=== PATIENT | female | born 1955 | race Caucasian/White ===

== ENCOUNTER → 2023-12-29 08:32 | Outpatient (REF) | payer MEDICARE, OTHER, SELFPAY | LOC: WDC 08:32 | PROVIDERS: ATTENDING PHYSICIAN Family Medicine | DX: Z12.31 Encounter for screening mammogram for malignant neoplasm of breast (principal) | CPT/HCPCS: 77063; 77067 ==

== ENCOUNTER 2024-04-02 12:32 | Inpatient (IN) | payer MEDICARE, OTHER, SELFPAY ==
[2024-04-02] VITALS (19 sets, daily range): BP systolic 40–149; BP diastolic 47–78; BMI 31.7
[2024-04-02 09:56] LABS: % Basophils 0.3 % (0-2); % Eosinophils 0.1 % (0-6); % Immature Granulocytes 1.6 % (0-0.5); % Lymphocytes 8.4 % (20.5-51.1); % Neutrophils 84.6 % (42.2-75.2); Absolute Basophils 0.1 10^3/uL (0-0.2); Absolute Immature Granulocytes 0.3 10^3/uL (0-0.05); Absolute Lymphocytes 1.6 10^3/uL (1.2-3.4); Hematocrit 28.9 % (37.0-47.0); Mean Corp Hgb Conc. 34.6 g/dL (33.0-37.0); Mean Corpuscular Hgb 31.1 pg (27.0-31.0); Mean Corpuscular Volume 89.8 fL (81.0-99.0); Nucleated Red Blood Cells % 0 %; Platelet Count 417 10^3/uL (130-400); Red Blood Cell Count 3.22 10^6/uL (4.20-5.40); Red Cell Dist. Width 13.4 % (11.5-14.5); White Blood Cell Count 18.9 10^3/uL (4.8-10.8)
[2024-04-02 10:00] LABS: ALT (SGPT) 197 U/L (0-35); AST (SGOT) 49 U/L (14-36); Albumin 3.1 g/dl (3.5-5.0); Alkaline Phosphatase 117 U/L (38-126); Blood Urea Nitrogen 25 mg/dl (7-17); Calcium 8.4 mg/dl (8.4-10.2); Carbon Dioxide 27 mmol/L (22-30); Chloride 97 mmol/L (98-107); Glucose 106 mg/dl (70-99); Lipase 91 U/L (23-300); Potassium 3.7 mmol/L (3.5-5.1); Sodium 132 mmol/L (135-145); Total Bilirubin 0.9 mg/dl (0.2-1.3); Total Protein 5.6 g/dl (6.3-8.2); eGFR > 60.00
[2024-04-02] MEDS: NSS 1000 IV ×2 (10:14→13:56)
--- NOTE | 2024-04-02 11:21 | ED.GENMED ---
History of Present Illness
General
Chief Complaint: Abdominal Symptoms
Source: patient
Exam Limitations: none
Time Seen by Provider: 04/02/24 09:04
Nursing documentation reviewed up to this point in time: agreed with
Travel History
Have you had any contact with someone who has COVID-19?: No
Do you have any symptoms of coronavirus? Fever > 100 degrees, chills, cough, shortness of breath, sore throat, loss of taste or smell, muscle aches, or headache?: No
History of Present Illness
History of Present Illness:
69-year-old female with a past medical history of hypertension, hyperlipidemia who presents to the emergency department for evaluation of black stools. Patient reports onset of symptoms a week ago and have been constant since then. She says that
today she noticed increased blood in the toilet bowl which finally prompted her to come to the emergency room for assessment. She does note that prior to onset of her black stools she was having some abdominal discomfort about 10 days ago that
lasted for 3 days�she says that she thought that she ate a bad cheeseburger and had food poisoning because shortly last Tuesday she started with bandlike abdominal cramping across the upper abdomen that was persistent and rather severe for 3 days.
Symptoms then abated. She has had nausea and poor appetite since and occasional abdominal pains but pain has been rather minimal since then. She says she has had intermittent fevers over the past week but none today. She denies any chest pain.
Denies any shortness of breath. She denies any vomiting although she has had nausea and poor appetite as above. She denies any other complaints. She is not on any blood thinners. She has a prior history of hysterectomy but no other abdominal
surgeries.
Past History
Past History
ED Past Medical History: HTN, Hypercholesterolemia, Psychiatric (a/d) and Other (bladder spasms); Negative IDDM or NIDDM
ED Past Surgical History: Gynecological (complete hyster)
Social History
Tobacco: Non-smoker
Personal:
Review of Systems
Review of Systems
All Other Systems: ROS reviewed and negative except as documented in HPI and ROS
Constitutional: Reports fever, fatigue and chills
Respiratory: Denies cough or trouble breathing
Cardiac: Denies chest pain or palpitations
ABD/GI: Reports abdominal pain, nausea and black stools; Denies vomiting or diarrhea
: Denies flank pain
Musculoskeletal: Denies neck pain or back pain
Neurological: Denies dizzy, headache, weakness or numbness
Phy Exam
Physical Exam
Physical Exam:
General: Awake, alert, oriented x3; no acute distress
Head: Normocephalic, atraumatic
Eyes: Conjunctiva normal, sclera anicteric
Throat: Airway intact, handling secretions
Neck: Trachea midline, supple without meningismus
Lungs: Clear to auscultation bilaterally, no wheezing, rales, rhonchi
Heart: Regular rate and rhythm, no murmurs, gallops, or rubs
Abd: Soft, non distended, mild diffuse tenderness maximal epigastric region but no peritoneal signs and no masses appreciated
Rectal: Black stool Hemoccult positive in the rectal vault
Neuro: Cranial nerves grossly intact, speech fluid
Skin: no rash
Extremities: No edema in extremities, equal pulses in all extremities
Scores
Heart Failure Risk
Heart Failure Risk Score: Not Applicable
Heart Score for Chest Pain Patients
STEMI patient?: Not applicable
Withdrawal Assessment of Alcohol
Withdrawal Assessment Completed?: Not applicable
Course
Orders/Labs/Results
Orders:
Orders
04/02/24 09:32
CMP [Comprehensive Metabolic Panel] Urgent
Complete Blood Count/With Diff Urgent
Lipase Urgent
04/02/24 09:33
Type+Screen Urgent
04/02/24 10:12
0.9% Sodium Chloride 500 ml [Nss] 1,000 ml IV BOLUS
04/02/24 10:14
0.9% Sodium Chloride 1000 ml [Nss] 1,000 ml IV BOLUS
04/02/24 10:28
CT Abd/pelvis W Iv Cont Urgent
Comment:
Reason For Exam: upper abd pain, tenderness
04/02/24 11:03
Piperacillin/Tazo 3.375 Gram [Zosyn] 3.375 gram in 50 ml IV NOW
04/02/24 11:16
Pantoprazole [Protonix IV] 80 mg IV NOW STA
04/02/24 11:17
SURGICAL CONSULT Urgent
Consulting Provider: Wayne Beard
Was physician already notified: Yes
04/02/24 11:20
Lactate Level [Lactic Acid] Urgent
Blood Culture Q30M
DARION Source: Blood/Venous
Specimen Description:
04/02/24 11:45
Blood Culture Q30M
DARION Source: Blood/Venous
Specimen Description:
Abnormal Lab Results
04/02/24
09:32
WBC 18.9 H 10^3/uL
(4.8-10.8)
RBC 3.22 L 10^6/uL
(4.20-5.40)
Hgb 10.0 L g/dL
(12.0-16.0)
Hct 28.9 L %
(37.0-47.0)
MCH 31.1 H pg
(27.0-31.0)
Plt Count 417 H 10^3/uL
(130-400)
Abs Immat Gran (auto) 0.3 H 10^3/uL
(0-0.05)
Absolute Neuts (auto) 16.0 H 10^3/uL
(1.4-6.5)
Absolute Monos (auto) 1.0 H 10^3/uL
(0.1-0.6)
Immature Gran % 1.6 H %
(0-0.5)
Neutrophils % 84.6 H %
(42.2-75.2)
Lymphocytes % 8.4 L %
(20.5-51.1)
Sodium 132 L mmol/L
(135-145)
Chloride 97 L mmol/L
(98-107)
BUN 25 H mg/dl
(7-17)
Glucose 106 H mg/dl
(70-99)
AST 49 H U/L
(14-36)
ALT 197 H U/L
(0-35)
Total Protein 5.6 L g/dl
(6.3-8.2)
Albumin 3.1 L g/dl
(3.5-5.0)
04/02/24 09:32
04/02/24 09:32
Vital Signs
Initial and Last Documented VS:
Initial Vital Signs
Temp Pulse Resp BP Pulse Ox
37.3 C 98 16 120/76 98
04/02/24 09:00 04/02/24 09:00 04/02/24 09:00 04/02/24 09:00 04/02/24 09:00
Last Documented Vital Signs
Temp Pulse Resp BP Pulse Ox
37.3 C 74 16 124/65 96
04/02/24 09:00 04/02/24 10:06 04/02/24 09:00 04/02/24 10:00 04/02/24 10:01
MDM/Problems Addressed
Differential Diagnosis Includes:
Black stools: Gastric ulcer, gastritis, esophagitis, etc
Abdominal pains: Gastritis, gastric ulcer, pancreatitis, cholecystitis, enteritis, colitis
MDM/Problems Addressed:
69-year-old female presents for evaluation of black stools�she also reports that she had some abdominal pains last week has had intermittent discomfort and fevers since then. She has had very poor appetite and nausea. Vital signs are normal here.
Exam as above�notably jet black stool Hemoccult positive on rectal exam. Plan to place an IV check labs including CBC and CMP, lipase. Check type and screen. Send for CT of the abdomen pelvis. Provide some fluids. Treat with IV Protonix.
Monitor closely reassess after the above.
Initial labs reviewed: CBC shows leukocytosis to 18.9. Hemoglobin 10 is stable. CMP shows marginal elevation of transaminases but normal T. bili. Lipase is normal. Added lactate and blood cultures.
CT of the abdomen pelvis called back by radiology: Positive for large intra-abdominal abscess adjacent to the stomach with some features concerning for perforated gastric ulcer. Plan to treat with IV Zosyn. Case discussed with general surgery or
at bedside evaluating. Case discussed with hospitalist for admission.
*Radiology
Radiology exam reviewed: radiology read reviewed
*Pulse Oximetry
Patient hypoxic: no
*Critical Care Note
Total Time (30-74mins, 75-104mins- exclusive of procedures): Not Applicable
Data Reviewed
Source: patient and records
Patient Management
Discussion with other providers: Hospitalist (Discussed with hospitalist), Sales Marketing Director (Discussed with general surgeon) and Radiologist (Discussed with radiologist)
Escalation/DeEscalation of care consider admission/obs:
Admission indicated
ED Attending Note
-
Portions of this chart may have been created with voice recognition software.� Occasional wrong word or��sound alike� substitutions may have occurred due to the inherent limitations of voice recognition software.
Discharge Plan
Departure
Patient Disposition: Admit
Date of Disposition: 04/02/24
Time of Disposition: 11:19
Admit to doctor: Rosa
Presentation/result/management discussed w/ accepting MD/DO: Hospitalist
Discharge Problem:
Perforated gastric ulcer, Abdominal abscess, Acute upper GI bleed
Prescriptions:
No Action
citalopram 20 MG tablet
20 mg PO HS
multivitamin with folic acid [Tab-A-Ethel] 1 TABLET tablet
1 tab PO DAILY
aspirin 81 MG tablet,delayed release (DR/EC)
81 mg PO HS
simvastatin 20 MG tablet
10 mg PO HS
lisinopril 10 MG tablet
10 mg PO QPM
calcium carbonate [Tums] 200 mg calcium (500 mg) Tablet,Chewable
200 mg PO BIDPRN PRN (Reason: GERD )
Referrals:
Emily Diaz DO [Family Provider] -
Interventions
Interventions:
*Risk Screen - Suicide Last Done: 04/02/24 09:43
*General Assessment Last Done: 04/02/24 09:43
*Neglect/Abuse Screening Last Done: 04/02/24 09:43
*ED COVID-19 Vaccine History Last Done: 04/02/24 09:00
TY-Fpmshq-Yhfynbphrr Assessment Last Done: 04/02/24 09:44
Discharge Date and Time
Print Language: MALTESE
[2024-04-02] MEDS: ZOSYN 50 IV ×3 (11:39→23:33)
[2024-04-02] MEDS: PROTONIX IV 80 MG IV (11:39)
[2024-04-02 11:41] LABS: Lactic Acid 1.2 mmol/L (0.7-2.0)
--- NOTE | 2024-04-02 12:04 | CON.GS ---
Addendum entered and electronically signed by Wayne Beard MD 04/02/24 16:06:
This is a 69-year-old female with a history of a lap hysterectomy who presents with a 10-day history of malaise, nausea and vomiting initially thought to be food poisoning however she has failed to improve and then developed bright red blood per
rectum as well as tarry stools which prompted her to visit our ED. Here her hemoglobin is stable at 10 with a leukocytosis of 19 K. She is febrile to 102. Her vital signs are otherwise stable. CT scan demonstrates fairly large anterior gastric
abscess unclear if it is emanating from the proximal stomach or distal, though favor the former. She is very mildly tender to palpation in the epigastrium.
Concern for gastric perforation of unclear etiology NSAID versus infectious versus cancer all discussed.
Will plan for a diagnostic laparoscopy, washout and drain placement with EGD today.
Risks/Benefits/Alternatives, expected postoperative course and possible complications (bleeding, infection, injury to surrounding structures, acute/chronic pain) discussed at length. Patient wishes to proceed with surgery. All questions answered.
Consent obtained.
I spent roughly 60 minutes in total for the care of this patient today including direct patient care and counseling, reviewing labs, imaging, coordination of care, as well as documentation.
Original Note:
Consultation
-
Requesting Provider: Carlo
Performing Provider: Stephanie Beard
Medical History
-
Chief Complaint: n/v/bloody stools
History of Present Illness:
This is a 69 yo female with a h/o htn, hld and lap hysterectomy on daily ASA who presents with 10 days of nausea and vomiting. She initially attributed her symptoms to food poisoning as she had an undercooked hamburger. She has been throwing up most
solid food but has been taking in liquids without emesis. She has had discomfort to the upper abdominal area which was severe and lasted about 3 days from onset of symptoms with intermittent discomfort since that time. Grossly nontender on exam. She
notes that she has passed some tarry stools over the last day or so but this morning noted taras blood in her stool causing her to present. She also reports intermittent subjective fevers over the past week with chills and sweats.
Past Medical History
Past Medical History: HTN, Hypercholesterolemia and Psychiatric (anxiety/depression)
Past Surgical History: Gynecological (lap hysterectomy)
Social History
Tobacco: Non-Smoker
Alcohol: Occasional
Personal:
Living: With Family
Family History
Family History: Cancer (breast ca: mother)
Allergies / Home Medications
Allergy/AdvReac Type Severity Reaction Status Date / Time
No Known Allergies Allergy Verified 04/02/24 09:03
�Medication �Instructions �Recorded �Confirmed �Type
citalopram 20 mg tablet 20 mg PO HS depression/anxiety 08/30/11 04/02/24 History
multivitamin with folic acid 400 1 tab PO DAILY Supplement 08/30/11 04/02/24 History
mcg tablet (Tab-A-Ethel)
aspirin 81 mg tablet,delayed 81 mg PO HS Blood Clot 01/16/20 04/02/24 History
release Prevention/Tx
lisinopril 10 mg tablet 10 mg PO QPM Blood Pressure 01/16/20 04/02/24 History
simvastatin 20 mg tablet 10 mg PO HS High Cholesterol 01/16/20 04/02/24 History
calcium carbonate (Tums) 200 mg PO BIDPRN PRN GERD 04/02/24 04/02/24 History
Review of Systems
-
History Source: Patient
All other systems: Negative unless noted
A 10 point review of systems was completed, and was negative except as per HPI.
Physical Exam
Vital Signs
Temp Pulse Resp BP Pulse Ox
99.2 F 74 16 124/65 96
04/02/24 09:00 04/02/24 10:06 04/02/24 09:00 04/02/24 10:00 04/02/24 10:01
04/01/24 04/02/24 04/03/24
06:59 06:59 06:59
Actual Weight 74.3 kg
Lab Results
04/02/24 09:32
04/02/24:32
WBC 18.9 10^3/uL (4.8-10.8) H 04/02/24 09:32
Hgb 10.0 g/dL (12.0-16.0) L 04/02/24 09:
Hct 28.9 % (37.0-47.0) L 04/02/24 09:32
Plt Count 417 10^3/uL (130-400) H 04/02/24:32
Abs Immat Gran (auto) 0.3 10^3/uL (0-0.05) H 04/02/24:32
Neutrophils % 84.6 % (42.2-75.2) H 04/02/24 09:32
Physical Exam
General: Well Developed, Well Nourished and No Apparent Distress
HEENT: Moist Mucous Membranes
Respiratory: Non Labored Respirations
GI: Soft, Non Tender and Non Distended
Skin: Warm and Dry
Neuro: Awake, Alert and AO x 3
Psych: Calm
Data Reviewed
-
CT Scan: Image Personally Visualized and interpreted, Report Reviewed by me, Discussed with Physician and Discussed with Patient
Labs: Labs Reviewed by me, Discussed with Physician and Discussed with Patient
Old Records: Reviewed
Assessment / Plan
-
69 yo female with h/o htn, hld and lap hysterectomy on daily ASA who presents with 10 days of nausea and vomiting with upper abdominal pain at onset of symptoms with residual discomfort. Presented with onset of gross blood in stools today. Some
tarry stools previously. CT imaging reviewed with very small amount of abdominal free air present, gastric fundus irregular with adjacent abscess which is 9.6 x 8.3 x 4.5 cm. Suspect perforated gastric ulcer with adjacent fluid/abscess. AFVSS.
Leukocytosis present. Mild anemia noted.
--Keep NPO
--OR today for dx lap
--Consult placed to GI, messaged prison librarian provider
--IV Protonix given in ED
--Trend labs
--Continue abx, pip/tazo x1 given in ED
--Hold chemical VTE ppx and asa given bleeding/ct findings. SCD's for VTE ppx
--- NOTE | 2024-04-02 12:07 | HPS.HSE ---
Family Physician
-
Family Physician: Emily Diaz
Chief Complaint
-
Melena, abdominal pain, nausea
History of Present Illness
69 yo female here complaining of abdominal discomfort that started about 10 days ago. Subsequently had nausea, anorexia, intermittent fevers and sweats. Then developed melena about 3 days ago, and an episode of hematochezia. She was treating herself
at home for the past week for what she assumed was gastroenteritis.
Denies regular use of NSAIDS.
Has never had EGD in past. No know history of PUD.
Medical History
Past Medical History
Past Medical History: Reports HTN and Hypercholesterolemia
Past Surgical History: Reports Gynocological
Social History
Tobacco: Non-smoker
Alcohol: Occasional
Drug: None
Living: With Family
Family History
Family History: Not pertinent
Allergies / Home Medications
Allergies reflects when Allergies were last updated in [employer].
Home Medications with original date entered in [employer]
Allergy/Medication List:
Allergies
Allergy/AdvReac Type Severity Reaction Status Date / Time
No Known Allergies Allergy Verified 04/02/24 09:03
Home Medications
citalopram 20 mg tablet 20 mg PO HS depression/anxiety 08/30/11
multivitamin with folic acid 400 mcg tablet (Tab-A-Ethel) 1 tab PO DAILY Supplement 08/30/11
aspirin 81 mg tablet,delayed release 81 mg PO HS Blood Clot Prevention/Tx 01/16/20
lisinopril 10 mg tablet 10 mg PO QPM Blood Pressure 01/16/20
simvastatin 20 mg tablet 10 mg PO HS High Cholesterol 01/16/20
calcium carbonate (Tums) 200 mg PO BIDPRN PRN GERD 04/02/24
Review of Systems
-
History Source: Patient
A 12 point ROS was completed and negative except as noted: Yes
Abdomen/GI: Reports Abdominal Pain, Nausea, Vomiting, Bloody Stools, Black Stools and Anorexia
Physical Exam
Vital Signs
Vital Signs
Temp Pulse Resp BP Pulse Ox
99.2 F 74 16 124/65 96
04/02/24 09:00 04/02/24 10:06 04/02/24 09:00 04/02/24 10:00 04/02/24 10:01
Physical Exam
General: Well Developed, Well Nourished, No Apparent Distress and Comfortable
HEENT: NormoCephalic, Anicteric and Moist mucous membranes
Respiratory: Clear
Cardiac: S1/S2 and Regular Rhythm
Breast: Deferred by me
GI: Soft, Non Distended and Tender (mild, no guarding)
Genito-urinary: Deferred by me
Musculoskeletal: No Clubbing, No Cyanosis and No Edema
Skin: Warm and Dry
Neuro: AO x 3
Hematologic/Lymphatic: No Lymphadenopathy
Psych: Calm
Laboratory Results
-
04/02/24 09:32
04/02/24 09:32
Laboratory Results
Lactic Acid 1.2 mmol/L (0.7-2.0) 04/02/24 11:20
Total Bilirubin 0.9 mg/dl (0.2-1.3) 04/02/24 09:32
AST 49 U/L (14-36) H 04/02/24 09:32
ALT 197 U/L (0-35) H 04/02/24 09:32
Alkaline Phosphatase 117 U/L (38-126) 04/02/24 09:32
Lipase 91 U/L (23-300) 04/02/24 09:32
Impression/Plan
-
Sepsis due to acute perforated gastric ulcer -admit to IMU. Keep NPO. Discussed with general surgery, will go to the OR today. Start IV Protonix. Hemodynamically stable.
Abdominal abscess -presumably due to perforated gastric ulcer. Measures 9 x 8 x 4 cm. Continue IV Zosyn. Check cultures.
Normocytic anemia, chronic -hemoglobin appears to be at baseline.
Hyponatremia -sodium 132. Presumably hypovolemic. Normal saline IV fluids ordered.
Elevated transaminases -likely reactive and due to abdominal process. Monitor for now.
Essential hypertension -controlled. Hold antihypertensives for now.
Hyperlipidemia -on simvastatin at home. Hold for elevated transaminases.
Full code
--- NOTE | 2024-04-02 12:57 | CON.GI ---
Consultation
-
Date/Time Consultation Requested: 04/02/24 1215
Date/Time Consultation Performed: 04/02/24 1300
Requesting Provider: ANGELA Pickens
Performing Provider: ANGELA Chadwick, Margie Rocha MD
Reason for Consultation: rectal bleeding
Medical History
Chief Complaint / HPI
History of Present Illness:
Pt is a 69yo presents with hx HTN, hypercholesterolemia, anxiety/depression on daily ASA therapy with onset of not feeling well for 10 days. She initially thought she had food poisoning with difficulty eating, nausea, vomiting food and clear
emesis small volume but 1-2 episode of larger emesis. She was not feeling improved then noted black stools for 3 days then red blood today. On admission she is noted with WBC 18,900 with hbg 10, Na 132, AST 49, ALT [address] with
concern for large abscess adjacent to the proximal stomach and pancreas, measuring 9.6 x 8.3 x 4.5 cm, consisting of extraluminal fluid and air. Abscess may be related to gastric perforation, peripancreatic abscess, or other etiology. Finding also
reported possible discontinuity in the region of the gastric fundus, although evaluation is limited without oral contrast and to consider EGD.
Pt otherwise admits to feeling of a ' fog.' She describes mild abdominal pain diffuse in nature /. Unable to state what make pain better or worse. She otherwise denies dysphagia, GERD, hematemesis. No prior EGD and last colonoscopy 2017
with HP polyp, diverticulosis and hemorrhoids. Pt takes daily ASA but only Advil about 1 time per month.
Past Medical History
Past Medical History: HTN, Hypercholesterolemia and Psychiatric (anxiety/depression)
Past Surgical History: Gynecological (lap hysterectomy)
Social History
Tobacco: Non-Smoker
Alcohol: Daily (1 glass wine daily)
Personal:
Living: With Family
Employment: Employed (semi retired )
Family History
Family History: Reviewed & Not Pertinent
Allergies / Home Medications
Allergy/AdvReac Type Severity Reaction Status Date / Time
No Known Allergies Allergy Verified 04/02/24 09:03
�Medication �Instructions �Recorded
citalopram 20 mg tablet 20 mg PO HS depression/anxiety 08/30/11
multivitamin with folic acid 400 1 tab PO DAILY Supplement 08/30/11
mcg tablet (Tab-A-Ethel)
aspirin 81 mg tablet,delayed 81 mg PO HS Blood Clot 01/16/20
release Prevention/Tx
lisinopril 10 mg tablet 10 mg PO QPM Blood Pressure 01/16/20
simvastatin 20 mg tablet 10 mg PO HS High Cholesterol 01/16/20
calcium carbonate (Tums) 200 mg PO BIDPRN PRN GERD 04/02/24
Review of Systems
-
History Source: Patient
Constitutional: Reports Weight Loss (few lbs last 10 days)
EENT: Reports No Symptoms
Respiratory: Reports No Symptoms
Cardiac: Reports No Symptoms
Abdomen/GI: Reports Abdominal Pain (02/28), Nausea, Vomiting, Bloody Stools and Black Stools
: Reports No Symptoms
Musculoskeletal: Reports No Symptoms
Skin: Reports No Symptoms
Neurological: Reports Weakness
Endocrine: Reports No Symptoms
Hematologic/Lymphatic: Reports Bleeding
Vital Signs
Temp Pulse Resp BP Pulse Ox
99.2 F 74 16 124/65 96
04/02/24 09:00 04/02/24 10:06 04/02/24 09:00 04/02/24 10:00 04/02/24 10:01
Physical Exam
Exam
General: Other (awake and alert , mild abdominal discomfort )
HEENT: Normocephalic and Anicteric
Respiratory: Clear
Cardiac: Regular Rhythm
GI: Soft, Non Distended and Tender (mild epigastric without rebound or guarding)
Genito-urinary: No Costovertebral Tender
Musculoskeletal: No Clubbing and No Cyanosis
Skin: Warm and Dry
Neuro: Awake, Alert and AO x 3
Psych: Calm
Results
WBC 18.9 10^3/uL (4.8-10.8) H 04/02/24 09:32
Hgb 10.0 g/dL (12.0-16.0) L 04/02/24 09:32
Hct 28.9 % (37.0-47.0) L 04/02/24 09:32
MCV 89.8 fL (81.0-99.0) 04/02/24 09:32
Plt Count 417 10^3/uL (130-400) H 04/02/24 09:32
Absolute Neuts (auto) 16.0 10^3/uL (1.4-6.5) H 04/02/24 09:32
Sodium 132 mmol/L (135-145) L 04/02/24 09:32
Potassium 3.7 mmol/L (3.5-5.1) 04/02/24 09:32
Chloride 97 mmol/L (98-107) L 04/02/24 09:32
Carbon Dioxide 27 mmol/L (22-30) 04/02/24 09:32
BUN 25 mg/dl (7-17) H 04/02/24 09:32
Creatinine 0.6 mg/dL (0.6-1.0) 04/02/24 09:32
Calcium 8.4 mg/dl (8.4-10.2) 04/02/24 09:32
Total Bilirubin 0.9 mg/dl (0.2-1.3) 04/02/24 09:32
AST 49 U/L (14-36) H 04/02/24 09:32
ALT 197 U/L (0-35) H 04/02/24 09:32
Alkaline Phosphatase 117 U/L (38-126) 04/02/24 09:32
Lipase 91 U/L (23-300) 04/02/24 09:32
Diagnostic Image Results:
04/02/24 CT Abd/pelvis W Iv Cont
1. Large abscess adjacent to the proximal stomach and pancreas, measuring 9.6 x 8.3 x 4.5 cm, consisting of extraluminal fluid and air. Abscess may be related to gastric perforation, peripancreatic abscess, or other etiology.
2. Possible discontinuity in the region of the gastric fundus, although evaluation is limited without oral contrast. Consider endoscopy for further evaluation.
Prior GI Procedures:
EGD: none
Colonoscopy: 2016- p - Multiple diverticula, but unlikely the cause of her
pelvic pain.
- Non-bleeding internal hemorrhoids.
- Diverticulosis in the left colon.
- One 6 mm polyp at the splenic flexure, removed with a
hot snare. Resected and retrieved.
bx HP polyp
Assessment / Plan
-
Pt is a 69yo presents with hx HTN, hypercholesterolemia, anxiety/depression on daily ASA therapy with onset of not feeling well for 10 days. She initially thought she had food poisoning with difficulty eating, nausea, vomiting food and clear
emesis small volume but 1-2 episode of larger emesis. She was not feeling improved then noted black stools for 3 days then red blood on day on ER evaluation. On admission she is noted with WBC 18,[address] with concern for large
abscess adjacent to the proximal stomach and pancreas, measuring 9.6 x 8.3 x 4.5 cm, consisting of extraluminal fluid and air. Abscess may be related to gastric perforation, peripancreatic abscess, or other etiology. Finding also reported possible
discontinuity in the region of the gastric fundus, although evaluation is limited without oral contrast and to consider EGD.
-nausea/vomiting mild abdominal pain
-rectal bleeding black then red stools
-abnormal CT with concern for large abscess adjacent to proximal stomach and pancreas with fluid and air related to gastric perforation, peripancreatic abscess, or other etiology.
-leukocytosis
other medical problems:
-HTN
-hypercholesterolemia
-anxiety/depression
-ETOH use 1 glass wine daily
PLAN:
Etiology of large abscess related to gastric perforation, peripancreatic abscess, or other etiology
appreciate surgical input
for exp lap today
will review imaging with Dr. Rocha
cont abx
trend CBC
if + confirmed ulcer will need H pylori testing as minimal NSAIDS prior to admission
monitor stool with black then red stools prior to admission
trend hbg
NSAID avoidance
cont PPI gtt
-
-
Thank you for consultation and allowing me to participate in the patient's care. Please call the weapons designer GI physician during the after hours with any questions or concerns.
[2024-04-02] MEDS: PROTONIX 100 IV (13:55)
--- NOTE | 2024-04-02 14:11 | PTCARENOTE ---
Pt rec'd into 3344 from ED. AOx3, ambulating in room. Walked to bathroom and voided, passed small amount of burgundy colored loose BM in toilet, requested attends be placed. states 'I have an angry bladder. ' Pt provided with CHG wipes, clean
linens, awaiting OR. Oral temp of 102 at this time, Dr. Winchester notified, no orders at this time. Pt's left AC PIV very positional, slow to flush, VAT RN notified, IVF and PPI infusing to right AC. Admission completed at this time, oriented to room
and plan of care.
[2024-04-02] MEDS: TYLENOL/FEVERALL 650 MG RECTAL (15:17)
--- NOTE | 2024-04-02 15:23 | PTCARENOTE ---
Rectal Tylenol ordered and given for oral temp 102.8. at bedside. Pt resting, calm and cooperative. Cont with burgundy stool.
--- NOTE | 2024-04-02 16:29 | PTCARENOTE ---
Pt sent to OR -report given by Oswaldo MUSTAFA while primary RN on lunch.
--- NOTE | 2024-04-02 19:47 | W.IMMPOSTOP ---
Surgical Immed Post Op Note
-
Primary Surgeon: Wayne Beard MD
Assisting Surgeon: Lucas Morales MD
Pre-op Diagnosis: Perforated viscus, intra-abdominal abscess
Post-op Diagnosis: Perforated gastric ulcer, intra-abdominal abscess
Procedure Performed:
1. Diagnostic laparoscopy, washout of intra-abdominal abscess.
2. Laparoscopic modified Chaim patch repair
3. EGD
Anesthesia Type: General
Specimen / Cultures:
1. Ulcer biopsy for path, rule out H. pylori (obtained intraluminally)
2. Abscess cavity for wound culture aerobic, anaerobic.
3. Omentum for tissue culture
Estimated Blood Loss: 11 cc
Complications: None
Operative Findings: Large abscess cavity extending along the lesser curve from the cardia all the way down to the gallbladder, opened up widely and drained. Small tear to the liver, inherent to the dissection was stopped with electrocautery.
Abscess cavity cultured. Initially it was unclear where the site of the perforation was as the entire wall of the abscess cavity was quite inflamed and had densely adherent omentum which was carefully peeled back. We did perform an EGD which help
us identify the site of the perforation which appeared to be at the lesser curve just proximal to the pylorus. A biopsy was taken intraluminally of the ulcer. The overlying omentum over this area was carefully peeled away eventually revealing the
site of perforation. This was closed with 3 interrupted 0 silk sutures followed by tongue of omentum which was secured in a modified Chaim patch manner. A 19 Austrian round Jose Angel drain was introduced through the right lateralmost port and draped
across the gallbladder fossa over the duodenum, passed our repair and into the abscess cavity. This was secured to the skin with a 2-0 nylon suture. A 18 Austrian NG tube was placed and position was confirmed endoscopically. A 16 Austrian Hyde was
placed at the beginning of the case.
POST OP PLAN:
Imaging: Will plan for an upper GI on postoperative day 3
Labs: Routine AM
Diet: Strict n.p.o., NG tube to low intermittent wall suction. PPI
Analgesia: IV Tylenol scheduled, Dilaudid as needed, no NSAIDs.
Neuro/vascular checks: q4h
AC/AP: Hold Therapeutic AC, Ok for DVT PPx
Activity: Ad Louise
Wound/Incisions/Drains: Routine, SHERIE to bulb suction
Abx: Continue Zosyn x 7 days. Would treat empirically for H. pylori
Dispo: IMU
[2024-04-02] MEDS: NORMOSOL-R 1000 IV (22:18)
[2024-04-02] MEDS: NSS IV ×2 (22:38)
[2024-04-02] MEDS: OFIRMEV 100 IV (23:12)
[2024-04-03] VITALS (10 sets, daily range): BP systolic 93–133; BP diastolic 51–61; BMI 31.7
--- NOTE | 2024-04-03 00:55 | PTCARENOTE ---
Received pt from PACU,tolerated transfer well.Pt is awake,oriented to surroundings,physical assessment preformed,pts NGT intact to left nare,maroon drainage present.Pt abd assessed 4 visible stab sites present with surgical glue, abd tender with
palp.VS stable,IVT with Normosol R,infusing at 5mls hour,Protonix GTT maintained.Pt easily awoken,close observation ongoing throughout the night.
[2024-04-03] MEDS: OFIRMEV 100 IV ×3 (03:57→15:54)
[2024-04-03] MEDS: PROTONIX 100 IV ×3 (04:01→20:00)
[2024-04-03] MEDS: DILAUDID 0.5 MG IV (04:40)
[2024-04-03 05:17] LABS: % Basophils 0.3 % (0-2); % Immature Granulocytes 1.2 % (0-0.5); % Monocytes 4.1 % (1.7-9.3); % Neutrophils 89.4 % (42.2-75.2); Absolute Basophils 0.1 10^3/uL (0-0.2); Absolute Immature Granulocytes 0.2 10^3/uL (0-0.05); Absolute Lymphocytes 0.9 10^3/uL (1.2-3.4); Absolute Monocytes 0.7 10^3/uL (0.1-0.6); Absolute Neutrophils 15.8 10^3/uL (1.4-6.5); Hemoglobin 8.2 g/dL (12.0-16.0); Mean Corp Hgb Conc. 34.2 g/dL (33.0-37.0); Mean Corpuscular Hgb 30.9 pg (27.0-31.0); Mean Corpuscular Volume 90.6 fL (81.0-99.0); Mean Platelet Volume 9.9 fL (7.4-10.4); Nucleated Red Blood Cells % 0 %; Platelet Count 339 10^3/uL (130-400); Red Blood Cell Count 2.65 10^6/uL (4.20-5.40); Red Cell Dist. Width 13.7 % (11.5-14.5); White Blood Cell Count 17.7 10^3/uL (4.8-10.8)
[2024-04-03] MEDS: ZOSYN 50 IV ×4 (05:37→23:44)
[2024-04-03 05:39] LABS: ALT (SGPT) 149 U/L (0-35); AST (SGOT) 56 U/L (14-36); Albumin 2.3 g/dl (3.5-5.0); Alkaline Phosphatase 84 U/L (38-126); Blood Urea Nitrogen 12 mg/dl (7-17); Calcium 7.6 mg/dl (8.4-10.2); Carbon Dioxide 23 mmol/L (22-30); Chloride 105 mmol/L (98-107); Estimated Creatinine Clearance 82 ml/min; Glucose 130 mg/dl (70-99); Sodium 133 mmol/L (135-145); Total Bilirubin 0.7 mg/dl (0.2-1.3); Total Protein 4.5 g/dl (6.3-8.2); eGFR > 60.00
--- NOTE | 2024-04-03 09:06 | W.PN.GS2 ---
Today's Communication / Plan
-
-- NPO, IVF
-- NGT to suction
-- Diet consult, PICC/TPN
-- Pain control: Tylenol IV and Dilaudid IV, no NSAIDs
-- PPI gtt
Assessment / Plan
-
Patient is a 69 yo F POD#1 s/p laparoscopic drainage of intra-abdominal abscess, modified Chaim patch repair of perforated gastric ulcer, EGD
AVSS, WBC trending down
Clinically stable
Limited oral intake over the past 1 to 2 weeks, plan for dietary consultation and starting TPN. NPO with TPN for the next 3 days at which time can trial clear liquids and monitor drain outputs.
-- NPO, IVF
-- NGT to suction
-- Diet consult, PICC/TPN
-- Abx: Zosyn
-- Pain control: Tylenol IV and Dilaudid IV, no NSAIDs
-- PPI gtt
-- Lovenox for DVT
Subjective Data
-
Date of Service: April 03, 2024
Denies worsening abdominal pain. No nausea or vomiting. No fevers.
Objective Data
-
Intake and Output
04/02/24 04/03/24 04/04/24
06:59 06:59 06:59
Intake Total 925 / 925
Output Total 1070 / 1070
Balance -145 / -145
Intake:
IV fluids (Total) 625 / 625
Normosal 100 / 100
IV piggybacks 300 / 300
Amount instilled into GI Tube ( 0 / 0
Total)
Gladys Sump 0 / 0
Output:
Drain Output (Total) 300 / 300
Right Lower Abdomen 300 / 300
Gastrointestinal tube output ( 100 / 100
Total)
Gladys Sump 100 / 100
Urine, Hyde 670 / 670
Other:
Number of approximated MODERATE 1
amounts of urine
Vital Signs
Temp Pulse Resp BP Pulse Ox
97.6 F 67 18 110/57 100
04/03/24 07:17 04/03/24 07:17 04/03/24 07:17 04/03/24 07:17 04/03/24 07:17
Lab Results
04/03/24 05:04
04/03/24 05:04
Calcium 7.6 mg/dl (8.4-10.2) L 04/03/24 05:04
Total Bilirubin 0.7 mg/dl (0.2-1.3) 04/03/24 05:04
AST 56 U/L (14-36) H 04/03/24 05:04
ALT 149 U/L (0-35) H 04/03/24 05:04
Alkaline Phosphatase 84 U/L (38-126) 04/03/24 05:04
Total Protein 4.5 g/dl (6.3-8.2) L 04/03/24 05:04
Albumin 2.3 g/dl (3.5-5.0) L 04/03/24 05:04
Physical Exam
-
Gen: NAD
HEENT: light bilious
Abd: soft, mild tenderness, ND, non-peritoneal, incisions c/d/i - no erythema, ecchymosis or drainage, SHERIE non-bilious, bloody purulent
[2024-04-03 10:11] LABS: ALT (SGPT) 125 U/L (0-35); AST (SGOT) 45 U/L (14-36); Albumin 2.3 g/dl (3.5-5.0); Alkaline Phosphatase 86 U/L (38-126); Blood Urea Nitrogen 11 mg/dl (7-17); Carbon Dioxide 24 mmol/L (22-30); Chloride 105 mmol/L (98-107); Estimated Creatinine Clearance 82 ml/min; Glucose 113 mg/dl (70-99); Magnesium 2.5 mg/dl (1.6-2.3); Phosphorus 4.2 mg/dl (2.5-4.5); Potassium 3.9 mmol/L (3.5-5.1); Sodium 136 mmol/L (135-145); Total Bilirubin 0.8 mg/dl (0.2-1.3); Total Protein 4.6 g/dl (6.3-8.2); Triglycerides 63 mg/dl (10-149); eGFR > 60.00
--- NOTE | 2024-04-03 10:43 | W.PN.GI.CBS2 ---
Addendum entered and electronically signed by Ama Duff DO 04/03/24 11:56:
I saw and examined the patient.
The WEBSITE DEVELOPER or PA's note was reviewed and I agree with the note.
Comment: Carole seen in follow-up today, now s/p ex lap with drainage of intra-abdominal abscess 2/2 perforated gastric ulcer, s/p falguni patch. NG in place with bilious fluid. She current reports 08/30 discomfort due to muscle spasm. She
adamantly denies NSAIDs, pathology sent from surgical specimen, r/o malignancy and H. pylori. Will defer post-surgical management to surgery, with plans for GI follow-up as an outpatient. GI will sign off, please call with questions.
Original Note:
Today's Communication / Plan
-
s/p laparoscopic drainage of intra-abdominal abscess, modified Falguni patch repair of perforated gastric ulcer, EGD
management per surgical team
per report H pylori bx sent to lab will need rx if positive when improved
cont abx
trend CBC
NSAID avoidance
cont PPI gtt
reviewed with Dr. Winchester
will sign off call with questions
Assessment / Plan
-
Pt is a 69yo presents with hx HTN, hypercholesterolemia, anxiety/depression on daily ASA therapy with onset of not feeling well for 10 days. She initially thought she had food poisoning with difficulty eating, nausea, vomiting food and clear
emesis small volume but 1-2 episode of larger emesis. She was not feeling improved then noted black stools for 3 days then red blood on day on ER evaluation. On admission she is noted with WBC 18,[address] with concern for large
abscess adjacent to the proximal stomach and pancreas, measuring 9.6 x 8.3 x 4.5 cm, consisting of extraluminal fluid and air. Abscess may be related to gastric perforation, peripancreatic abscess, or other etiology. Finding also reported possible
discontinuity in the region of the gastric fundus, although evaluation is limited without oral contrast and to consider EGD.
-abnormal CT with concern for large abscess adjacent to proximal stomach and pancreas with fluid and air related to gastric perforation, peripancreatic abscess, or other etiology
-04/03 exp lap with s/p laparoscopic drainage of intra-abdominal abscess, modified Falguni patch repair of perforated gastric ulcer, EGD
-nausea/vomiting mild abdominal pain
-rectal bleeding black then red stools
-increased LFT's
-leukocytosis
other medical problems:
-HTN
-hypercholesterolemia
-anxiety/depression
-ETOH use 1 glass wine daily
PLAN:
s/p laparoscopic drainage of intra-abdominal abscess, modified Falguni patch repair of perforated gastric ulcer, EGD
management per surgical team
per report H pylori bx sent to lab will need rx if positive when improved
cont abx
trend CBC
NSAID avoidance
cont PPI gtt
reviewed with Dr. Winchester
will sign off call with questions
Subjective
Subjective
Date of Service: April 03, 2024
burgundy stool 04/02 prior to surgery, NPO some noted post op pain
Objective
Data Reviewed
Laboratory Data:
Laboratory Results
04/03/24 05:04
04/03/24 09:36
Laboratory Results
Phosphorus 4.2 mg/dl (2.5-4.5) 04/03/24 09:36
Magnesium 2.5 mg/dl (1.6-2.3) H 04/03/24 09:36
Total Bilirubin 0.8 mg/dl (0.2-1.3) 04/03/24 09:36
AST 45 U/L (14-36) H 04/03/24 09:36
ALT 125 U/L (0-35) H 04/03/24 09:36
Alkaline Phosphatase 86 U/L (38-126) 04/03/24 09:36
Lipase 91 U/L (23-300) 04/02/24 09:32
Vital Signs and I&O:
Vital Signs
Temp Pulse Resp BP Pulse Ox
97.6 F 67 18 110/57 100
04/03/24 07:17 04/03/24 07:17 04/03/24 07:17 04/03/24 07:17 04/03/24 09:39
I&O
04/02/24 04/03/24 04/04/24
06:59 06:59 06:59
Intake Total 925 / 925
Output Total 1070 / 1070 50 / 50
Balance -145 / -145 -50 / -50
Physical Exam
Physical Exam
HEENT: Anicteric and Moist mucous membranes
Cardiology: Normal Sinus Rhythm
Pulmonary: Clear
GI: Soft, Non Distended and Tender
Extremities: No Edema
Neuro: Non Focal
[2024-04-03] MEDS: DILAUDID 1 MG IV (11:14)
--- NOTE | 2024-04-03 11:29 | W.PN.HOSP.TC ---
Today's Communication/Plan
-
Continue current care
Assessment / Plan
Assessment / Plan
Gen-AAOx3, NAD, obese
HEENT-NC, AT, anicteric, clear oral mm
Neck-supple
CV-reg, no M, +S1/S2
Lungs-clear B/L
Abd-soft, nondistended, mild tenderness, drain in place
Ext-no edema
Musculoskeletal-no cyanosis, clubbing
Skin-warm and dry
Neuro-grossly non-focal
Psych-calm, cooperative
Sepsis due to acute perforated gastric ulcer/intra-abdominal abscess - hemodynamically stable. Continue IV Zosyn. Underwent washout of abdominal abscess 04/02.
Blood cultures negative so far. WBC trending down.
Perforated gastric ulcer, subacute -stable postop. Underwent laparoscopic modified Chaim patch repair, washout of intra-abdominal abscess, EGD on 04/02. N.p.o. currently. TPN per surgical service.
H. pylori testing pending. Currently on PPI drip. Appreciate GI input.
Having abdominal cramps today, symptoms are not similar to the symptoms that brought her to the hospital.
Acute on chronic normocytic anemia -acute postop anemia likely due to operative blood loss. Component of hemodilution from IV fluids possible. Hemoglobin 8.2 today. Monitor. Baseline hemoglobin appears to be around 10.
Hyponatremia -sodium 132. Presumably hypovolemic. Sodium improved to 136 today.
Elevated transaminases -likely reactive and due to abdominal process. Monitor for now.
Essential hypertension -controlled. Hold antihypertensives for now.
Hyperlipidemia -on simvastatin at home. Hold for elevated transaminases.
Obesity due to excess calories
Full code
Anticipated Discharge: > 48 hours
Subjective/Interval History
-
Date of Service: April 03, 2024
Patient seen and examined. Complaining of abdominal cramping.
Objective Data
-
Labs:
Laboratory Results
04/03/24 04/03/24
05:04 09:36
WBC 17.7 H
Hgb 8.2 L
Hct 24.0 L
Plt Count 339
Sodium 133 L 136
Potassium 4.0 3.9
Chloride 105 105
Carbon Dioxide 23 24
BUN 12 11
Creatinine 0.5 L 0.5 L
Glucose 130 H 113 H
Calcium 7.6 L 8.0 L
Total Bilirubin 0.7 0.8
AST 56 H 45 H
ALT 149 H 125 H
Alkaline Phosphatase 84 86
Vital Signs:
Vital Signs
Temp Pulse Resp BP Pulse Ox
98.2 F 84 18 133/59 94
04/03/24 11:16 04/03/24 11:16 04/03/24 11:16 04/03/24 11:16 04/03/24 11:16
I&O
04/02/24 04/03/24 04/04/24
06:59 06:59 06:59
Intake Total 925 / 925
Output Total 1070 / 1070 50 / 50
Balance -145 / -145 -50 / -50
Review of Systems
-
History Source: Patient
All other systems: Reviewed and negative
[2024-04-03] MEDS: NORMOSOL-R 1000 IV ×2 (11:47→21:26)
--- NOTE | 2024-04-03 16:16 | CM ---
CM met with pt bedside
Pt resides with her spouse in a 2SH with 3STE
Has 1st floor set up
Pt is independent with her ADLs- denies use of DMEs
PCP- Emily torres
Rx- [facility]
Discharge Disposition- home, no needs anticipated
[2024-04-03] MEDS: LOVENOX 40 MG SC (17:50)
--- NOTE | 2024-04-03 19:08 | PHA.VAN.IN ---
Assessment
- Assessment
Renal Function: Appears similar to baseline
Concomitant Antimicrobials: ZOSYN
- Previous Dosing Experience
Previous Regimen: NONE
AUC Dosing Plan
- Dosing Variables
Dosing Weight (kg): 73.7
Dosing CrCl (ml/min): 82
Vd coefficient (L/kg): 0.6
- Empiric Dosing
Initial / Loading Dose: 1750MG
Maintenance Regimen: 750MG IV Q12H
Estimated AUC (mcg*h/mL): 485
Estimated Peak (mcg*h/mL): 29.2
Estimated Trough (mcg/ml): 13.2
Estimated Half Life (H): 9.6
Pharmacokinetics Vancomycin I
- -
Patient Age: 69
Patient Sex: Female
Vancomycin Day #: 1
Indication: Bacteremia (PERFORATED GASTRIC ULCER/ABSCESS)
Requesting Provider: ERIK
Height / Weight:
Height 5 ft
Actual Weight 73.7 kg
- Vital Signs / Lab Results
Temp Pulse Resp BP Pulse Ox
98.1 F 71 18 94/56 96
04/03/24 15:23 04/03/24 15:23 04/03/24 15:23 04/03/24 15:23 04/03/24 15:23
Lab Results - Hematology
04/02/24 04/03/24
09:32 05:04
WBC 18.9 H 17.7 H
Lab Results - Chemistry
04/02/24 04/03/24 04/03/24
09:32 05:04 09:36
BUN 25 H 12 11
Creatinine 0.6 0.5 L 0.5 L
Estimated Creat Clear 82 82
Albumin 3.1 L 2.3 L 2.3 L
04/02/24
11:20
Lactic Acid 1.2
Microbiology Results
04/02/24 11:27 Blood Culture - Preliminary
Blood/Venous Positive culture in progress
Gram Stain - Preliminary
04/02/24 19:42 Tissue Culture - Preliminary
Abdomen Gram Stain - Final
04/02/24 18:17 Anaerobic Culture - Preliminary
Abscess Culture pending. Anaerobic cultures are examined after 3
days incubation. Additional information to follow.
04/02/24 18:17 Wound Culture - Preliminary
Abscess Group F Streptococcus
Gram Stain - Preliminary
04/02/24 11:20 Blood Culture - Preliminary
Blood/Venous No Growth in 24 hours- Final report to follow
[2024-04-03] MEDS: VANCOCIN 535 MG IV (19:44)
[2024-04-03] MEDS: Parenteral Nutrition, Central 1210 IV (22:14)
[2024-04-04] MEDS: PROTONIX 100 IV ×2 (05:29→14:53)
[2024-04-04] MEDS: VANCOCIN 150 IV (05:30)
[2024-04-04] MEDS: DILAUDID 1 MG IV ×2 (05:42→11:40)
[2024-04-04 06:08] LABS: % Basophils 0.1 % (0-2); % Eosinophils 0.2 % (0-6); % Immature Granulocytes 1.4 % (0-0.5); % Lymphocytes 8.7 % (20.5-51.1); % Monocytes 3.9 % (1.7-9.3); % Neutrophils 85.7 % (42.2-75.2); Absolute Immature Granulocytes 0.2 10^3/uL (0-0.05); Absolute Lymphocytes 1.1 10^3/uL (1.2-3.4); Absolute Monocytes 0.5 10^3/uL (0.1-0.6); Absolute Neutrophils 11.1 10^3/uL (1.4-6.5); Hematocrit 21.9 % (37.0-47.0); Hemoglobin 7.6 g/dL (12.0-16.0); Mean Corp Hgb Conc. 34.7 g/dL (33.0-37.0); Mean Corpuscular Hgb 31.5 pg (27.0-31.0); Mean Corpuscular Volume 90.9 fL (81.0-99.0); Mean Platelet Volume 10.1 fL (7.4-10.4); Nucleated Red Blood Cells % 0 %; Platelet Count 395 10^3/uL (130-400); Red Blood Cell Count 2.41 10^6/uL (4.20-5.40); Red Cell Dist. Width 13.8 % (11.5-14.5); White Blood Cell Count 12.9 10^3/uL (4.8-10.8)
[2024-04-04] MEDS: ZOSYN 50 IV ×2 (06:08→11:32)
[2024-04-04 06:27] LABS: ALT (SGPT) 86 U/L (0-35); AST (SGOT) 28 U/L (14-36); Alkaline Phosphatase 77 U/L (38-126); Blood Urea Nitrogen 10 mg/dl (7-17); Calcium 7.4 mg/dl (8.4-10.2); Carbon Dioxide 28 mmol/L (22-30); Chloride 103 mmol/L (98-107); Estimated Creatinine Clearance 82 ml/min; Glucose 164 mg/dl (70-99); Magnesium 2.3 mg/dl (1.6-2.3); Phosphorus 1.9 mg/dl (2.5-4.5); Potassium 3.6 mmol/L (3.5-5.1); Sodium 135 mmol/L (135-145); Total Bilirubin 0.2 mg/dl (0.2-1.3); Total Protein 4.2 g/dl (6.3-8.2); eGFR > 60.00
[2024-04-04 07:28] VITALS: BP 111/57
--- NOTE | 2024-04-04 08:48 | PHA.VAN.FU ---
Vancomycin Assessment / Plan
- Assessment
Renal Function: Stable
WBC's are: Trending Down
In the past 24 hrs, patient has been: Afebrile
Concomitant Antimicrobials: piperacillin/tazobactam
- Dosing Plan
Continue: Vanc 750mg Q12H
- Monitoring Plan
No level(s) ordered at this time: consider levels in next few days
- Follow Up
Pharmacy will continue to follow.
Vancomycin Follow UP
- -
Patient Age: 69
Patient Sex: Female
Vancomycin Day #: 2
Indication: Bacteremia
Requesting Provider: Dr. Winchester
Pertinent Antimicrobial Allergies:
NKDA
Height / Weight:
Height 5 ft
Actual Weight 73.7 kg
Pertinent Past Medical History: BMI ~32
- Vital Signs / Lab Results
Temp Pulse Resp BP Pulse Ox
99.2 F 89 18 111/57 92
04/04/24 07:28 04/04/24 07:28 04/04/24 07:28 04/04/24 07:28 04/04/24 07:28
Lab Results - Hematology
04/02/24 04/03/24 04/04/24
09:32 05:04 05:25
WBC 18.9 H 17.7 H 12.9 H
Lab Results - Chemistry
04/02/24 04/03/24 04/03/24
09:32 05:04 09:36
BUN 25 H 12 11
Creatinine 0.6 0.5 L 0.5 L
Estimated Creat Clear 82 82
Albumin 3.1 L 2.3 L 2.3 L
04/04/24
05:25
BUN 10
Creatinine 0.6
Estimated Creat Clear 82
Albumin 2.0 L
04/02/24
11:20
Lactic Acid 1.2
Microbiology Results
04/02/24 11:27 Blood Culture - Preliminary
Blood/Venous Positive culture in progress
Gram Stain - Preliminary
04/02/24 19:42 Tissue Culture - Preliminary
Abdomen Gram Stain - Final
04/02/24 18:17 Anaerobic Culture - Preliminary
Abscess Culture pending. Anaerobic cultures are examined after 3
days incubation. Additional information to follow.
04/02/24 18:17 Wound Culture - Preliminary
Abscess Group F Streptococcus
Gram Stain - Preliminary
04/02/24 11:20 Blood Culture - Preliminary
Blood/Venous No Growth in 24 hours- Final report to follow
--- NOTE | 2024-04-04 11:25 | CM ---
Reviewed the chart notes. Patient continues with NGT in place. TPN has been ordered. CM continues to be available to patient/family and is monitoring medical plan for needs at discharge.
Plan: Discharge to home when medically stable.
--- NOTE | 2024-04-04 12:13 | W.PN.HOSP.TC ---
Today's Communication/Plan
-
Transfuse
ID consult
PT/OT
Assessment / Plan
Assessment / Plan
Gen-AAOx3, NAD, obese
HEENT-NC, AT, anicteric, clear oral mm
Neck-supple
CV-reg, no M, +S1/S2
Lungs-clear B/L
Abd-soft, nondistended, mild tenderness, drain in place
Ext-no edema
Musculoskeletal-no cyanosis, clubbing
Skin-warm and dry
Neuro-grossly non-focal
Psych-calm, cooperative
Sepsis due to acute perforated gastric ulcer/intra-abdominal abscess - hemodynamically stable. Continue IV Zosyn/Vanco. Underwent washout of abdominal abscess 04/02.
Blood cultures positive for gram-positive cocci in clusters. Fluid culture from the OR abdominal fluid positive for group F Streptococcus. WBC trending down. ID consulted.
Perforated gastric ulcer, subacute -stable postop. Underwent laparoscopic modified Chaim patch repair, washout of intra-abdominal abscess, EGD on 04/02. N.p.o. currently. TPN per surgical service.
H. pylori testing pending. PPI drip x 72 hours, then BID.
Acute on chronic normocytic anemia -acute postop anemia likely due to operative blood loss, as well as gastric ulcer related GI bleed. Component of hemodilution from IV fluids possible. Hemoglobin 7.6 today, will transfuse 1 unit of blood.
Recheck CBC in the morning.
Hyponatremia -resolved.
Elevated transaminases -likely reactive and due to abdominal process. LFTs improving.
Essential hypertension -controlled. Hold antihypertensives for now.
Hyperlipidemia -on simvastatin at home. Hold for elevated transaminases.
Obesity due to excess calories
Full code
Anticipated Discharge: > 48 hours
Subjective/Interval History
-
Date of Service: April 04, 2024
Patient seen and examined. Complaining of abdominal cramping.
Objective Data
-
Labs:
Laboratory Results
04/04/24
05:25
WBC 12.9 H
Hgb 7.6 L
Hct 21.9 L
Plt Count 395
Sodium 135
Potassium 3.6
Chloride 103
Carbon Dioxide 28
BUN 10
Creatinine 0.6
Glucose 164 H
Calcium 7.4 L
Total Bilirubin 0.2
AST 28
ALT 86 H
Alkaline Phosphatase 77
Vital Signs:
Vital Signs
Temp Pulse Resp BP Pulse Ox
99.2 F 89 18 111/57 92
04/04/24 07:28 04/04/24 07:28 04/04/24 07:28 04/04/24 07:28 04/04/24 08:53
I&O
04/03/24 04/04/24 04/05/24
06:59 06:59 06:59
Intake Total 925 / 925 1488 / 1488
Output Total 1070 / 1070 720 / 720 1020 / 1020
Balance -145 / -145 768 / 768 -1020 / -1020
Review of Systems
-
History Source: Patient
All other systems: Reviewed and negative
--- NOTE | 2024-04-04 13:13 | W.PN.GS2 ---
Today's Communication / Plan
-
Cont TPN
UGI tomorrow
Assessment / Plan
-
Patient is a 69 yo F POD#2 s/p laparoscopic drainage of intra-abdominal abscess, modified Chaim patch repair of perforated gastric ulcer, EGD
AVSS, WBC trending down
Clinically stable
Micro: speciation pending
NPO with TPN for today and tomorrow, UGI tomorrow. If no leak, trial clear liquids and monitor drain outputs.
-- NPO, IVF
-- NGT to suction
-- Cont TPN
-- Abx: Zosyn/Vanc
-- Pain control: Tylenol IV and Dilaudid IV, no NSAIDs
-- PPI gtt
-- Lovenox for DVT
Subjective Data
-
Date of Service: April 04, 2024
AFVSS, pain controlled, feels better today, no specific complaints, OOBTC
Objective Data
-
Intake and Output
04/03/24 04/04/24 04/05/24
06:59 06:59 06:59
Intake Total 925 / 925 1488 / 1488
Output Total 1070 / 1070 720 / 720 1020 / 1020
Balance -145 / -145 768 / 768 -1020 / -1020
Intake:
IV fluids (Total) 625 / 625 1388 / 1388
Normosal 100 / 100
IV piggybacks 300 / 300 100 / 100
Amount instilled into GI Tube ( 0 / 0
Total)
Clarion Sump 0 / 0
Output:
Drain Output (Total) 300 / 300 70 / 70 20 / 20
Right Lower Abdomen 300 / 300 70 / 70 20 / 20
Gastrointestinal tube output ( 100 / 100 100 / 100 250 / 250
Total)
Clarion Sump 100 / 100 100 / 100 250 / 250
Urine, Hyde 670 / 670 550 / 550 750 / 750
Other:
Number of approximated MODERATE 1
amounts of urine
Vital Signs
Temp Pulse Resp BP Pulse Ox
99.2 F 89 18 111/57 92
04/04/24 07:28 04/04/24 07:28 04/04/24 07:28 04/04/24 07:28 04/04/24 08:53
Lab Results
04/04/24 05:25
04/04/24 05:25
Calcium 7.4 mg/dl (8.4-10.2) L 04/04/24 05:25
Phosphorus 1.9 mg/dl (2.5-4.5) L 04/04/24 05:25
Magnesium 2.3 mg/dl (1.6-2.3) 04/04/24 05:25
Total Bilirubin 0.2 mg/dl (0.2-1.3) 04/04/24 05:25
AST 28 U/L (14-36) 04/04/24 05:25
ALT 86 U/L (0-35) H 04/04/24 05:25
Alkaline Phosphatase 77 U/L (38-126) 04/04/24 05:25
Total Protein 4.2 g/dl (6.3-8.2) L 04/04/24 05:25
Albumin 2.0 g/dl (3.5-5.0) L 04/04/24 05:25
Physical Exam
-
Gen: NAD
Abd: soft, approp ttp, incisions cdi, NGT in place
[2024-04-04 13:15] VITALS: BP 117/64
[2024-04-04 13:28] LABS: Glucose - Point of Care 185 mg/dl (70-99)
[2024-04-04 13:35] VITALS: BP 142/77
[2024-04-04] MEDS: OFIRMEV 100 IV ×2 (14:11→19:56)
[2024-04-04 15:34] VITALS: BP 135/70
--- NOTE | 2024-04-04 15:50 | CON.ID ---
Consultation
-
Date/Time Consultation Requested: 04/03/24 18:20
Date/Time Consultation Performed: 04/04/24 15:50
Requesting Provider: Dr Winchester
Performing Provider: Dr Mercer
Reason for Consultation: gastric perforation with abscess
Chief Complaint / Past History
Chief Complaint
Melena, abdominal pain, nausea
History of Present Illness
Ms Barajas is a 69 year old female with history of class I oesbity who presented here on 04/02 for a 10 day history of abdominal pain, intermittent fevers/sweats, nausea, anorexia. 3 days [employer] with melena and hematochezia. No history of PUD or NSAID
use. Thought she had gastroenteritis and did not seek medical care prior to coming to the ER
Since admission she was initially febrile to 102.8 since then afebrile, BP overall stable, wbc initially 18 now 12.9, hgb 7.6, lt 395, L shift stable compared to arrival at 86%, cr 0.6, lactic acid 1.2, t bili 0.2, ast initially 56 now 28, alt 149
now 86, alk phos 77, CT a/p with IV contrast: Large abscess adjacent to the proximal stomach and pancreas, measuring 9.6 x 8.3 x 4.5 cm, consisting of extraluminal fluid and air. Abscess may be related to gastric perforation, peripancreatic abscess,
or other etiology. 2. Possible discontinuity in the region of the gastric fundus, although evaluation is limited without oral contrast. Consider endoscopy for further evaluation. CXR: PICC in place, basilar atelectasis, taken to the OR 04/02 with
Chirag: underwent 1. Diagnostic laparoscopy, washout of intra-abdominal abscess. 2. Laparoscopic modified Chaim patch repair 3. EGD. Specimens: 1. Ulcer biopsy for path, rule out H. pylori (obtained intraluminally) 2. Abscess cavity for wound
culture aerobic, anaerobic. 3. Omentum for tissue culture
Past History
Additional Past Medical History:
HTN and Hypercholesterolemia
Past Surgical History: Gynecological
Allergy History:
No Known Allergies Allergy (Verified 04/02/24 09:03)
Medications Reviewed: Yes
Social History
Tobacco: Non-Smoker
Alcohol: Occasional
Drug: None
Family History
Family History: Not Pertinent
Review of Systems
Review of Systems
General: Negative Fever or Chills
All systems: All other systems were reviewed and were negative
Vital Signs
Temp Pulse Resp BP Pulse Ox
97.6 F 70 17 135/70 92
04/04/24 15:34 04/04/24 15:34 04/04/24 15:34 04/04/24 15:34 04/04/24 08:53
Physical Exam
Physical Exam
Constitutional: No Acute Distress and Obese
Cardiovascular: Regular Rate and S1/S2; Negative Murmur or Rub
Pulmonary: Clear and Symmetric; Negative Wheezes, Rales or Rhonchi
Gastrointestinal: Soft, Non Tender, Non Distended and Normal Bowel Sounds
Skin: Warm and Dry; Negative Rash or Jaundice
Lines: Other (purulent drainage in the drain)
Lab / Diagnostic Study Results
04/04/24 05:25
04/04/24 05:25
Abs Immat Gran (auto) 0.2 10^3/uL (0-0.05) H 04/04/24 05:25
Absolute Neuts (auto) 11.1 10^3/uL (1.4-6.5) H 04/04/24 05:25
Absolute Lymphs (auto) 1.1 10^3/uL (1.2-3.4) L 04/04/24 05:25
Absolute Monos (auto) 0.5 10^3/uL (0.1-0.6) 04/04/24 05:25
Absolute Basos (auto) 0.0 10^3/uL (0-0.2) 04/04/24 05:25
Immature Gran % 1.4 % (0-0.5) H 04/04/24 05:25
Neutrophils % 85.7 % (42.2-75.2) H 04/04/24 05:25
Lymphocytes % 8.7 % (20.5-51.1) L 04/04/24 05:25
Monocytes % 3.9 % (1.7-9.3) 04/04/24 05:25
Eosinophils % 0.2 % (0-6) 04/04/24 05:25
Basophils % 0.1 % (0-2) 04/04/24 05:25
Lactic Acid 1.2 mmol/L (0.7-2.0) 04/02/24 11:20
Microbiology Results
Micro:
04/02/24 11:27 Blood Culture - Preliminary
Blood/Venous Positive culture in progress
Gram Stain - Preliminary
04/02/24 11:20 Blood Culture - Preliminary
Blood/Venous No Growth in 48 hours- Final report to follow
04/02/24 18:17 Wound Culture - Preliminary
Abscess Group F Streptococcus
Gram Stain - Preliminary
04/02/24 19:42 Tissue Culture - Preliminary
Abdomen Gram Stain - Final
04/02/24 18:17 Anaerobic Culture - Preliminary
Abscess Culture pending. Anaerobic cultures are examined after 3
days incubation. Additional information to follow.
Assessment / Plan
Intraabdominal abscess s/p washout
Perforated gastric ulcer s/p Chaim patch
- blood culture 1 of 2 with gpcs in clusters in the anaerobic bottle
- omentum culture: gram stain not done, culture in progress
- abscess cavity cultures: gram stain many GNR, many GPC, few GPR; culture: group F strep, anaerobic culture in progress,
- ulcer path: immunohistochemical stain without H pylori
- note TPN
- start unasyn, stop vancomycin and zosyn
- follow clinically
[2024-04-04 16:15] VITALS: BP 151/72; PULSE 70; O2SAT 93
[2024-04-04] MEDS: LOVENOX 40 MG SC (17:15)
[2024-04-04] MEDS: UNASYN IV (17:15)
[2024-04-04 18:42] LABS: Glucose - Point of Care 148 mg/dl (70-99)
[2024-04-04] MEDS: Parenteral Nutrition, Central 1210 IV (21:47)
[2024-04-04 23:39] VITALS: BP 115/68
[2024-04-05] MEDS: UNASYN IV ×3 (00:04→12:16)
[2024-04-05 00:20] LABS: Glucose - Point of Care 158 mg/dl (70-99)
[2024-04-05] MEDS: OFIRMEV 100 IV ×2 (01:00→08:41)
[2024-04-05] MEDS: PROTONIX 100 IV ×2 (01:01→11:19)
[2024-04-05 06:22] LABS: % Basophils 0.3 % (0-2); % Eosinophils 0.8 % (0-6); % Immature Granulocytes 1.7 % (0-0.5); % Lymphocytes 13.6 % (20.5-51.1); % Monocytes 5.9 % (1.7-9.3); % Neutrophils 77.7 % (42.2-75.2); Absolute Eosinophils 0.1 10^3/uL (0-0.7); Absolute Immature Granulocytes 0.2 10^3/uL (0-0.05); Absolute Lymphocytes 1.5 10^3/uL (1.2-3.4); Absolute Monocytes 0.7 10^3/uL (0.1-0.6); Absolute Neutrophils 8.7 10^3/uL (1.4-6.5); Hemoglobin 8.8 g/dL (12.0-16.0); Mean Corp Hgb Conc. 33.8 g/dL (33.0-37.0); Mean Corpuscular Hgb 30.8 pg (27.0-31.0); Mean Corpuscular Volume 90.9 fL (81.0-99.0); Mean Platelet Volume 10.1 fL (7.4-10.4); Nucleated Red Blood Cells % 0 %; Platelet Count 460 10^3/uL (130-400); Red Blood Cell Count 2.86 10^6/uL (4.20-5.40); Red Cell Dist. Width 14.4 % (11.5-14.5); White Blood Cell Count 11.2 10^3/uL (4.8-10.8)
[2024-04-05 06:34] LABS: Glucose - Point of Care 110 mg/dl (70-99)
[2024-04-05 06:50] LABS: ALT (SGPT) 68 U/L (0-35); AST (SGOT) 36 U/L (14-36); Albumin 2.2 g/dl (3.5-5.0); Alkaline Phosphatase 79 U/L (38-126); Blood Urea Nitrogen 9 mg/dl (7-17); Calcium 7.9 mg/dl (8.4-10.2); Carbon Dioxide 27 mmol/L (22-30); Chloride 104 mmol/L (98-107); Estimated Creatinine Clearance 82 ml/min; Glucose 112 mg/dl (70-99); Magnesium 2.3 mg/dl (1.6-2.3); Potassium 3.7 mmol/L (3.5-5.1); Sodium 137 mmol/L (135-145); Total Bilirubin 0.4 mg/dl (0.2-1.3); Total Protein 4.5 g/dl (6.3-8.2); eGFR > 60.00
[2024-04-05 06:53] VITALS: BMI 34.0
--- NOTE | 2024-04-05 08:21 | W.PN.GS2 ---
Today's Communication / Plan
-
`
Assessment / Plan
-
Assessment: 69 yo F POD#3 s/p laparoscopic drainage of intra-abdominal abscess, modified Chaim patch repair of perforated gastric ulcer, EGD
AFVSS,
doing well post op
OR cultures - polymicrobial on stain; prelim cx Group F strep
SHERIE light SSF
Plan:
-- UGI scheduled for today; if looks well then anticipate removal of NGT and starting clear liquid diet
-- NPO, renewed TPN
-- NGT to suction
-- Abx: per ID
-- Pain control: Tylenol IV and Dilaudid IV, no NSAIDs
-- PPI gtt - starting BID dosing today
-- Lovenox for DVT
Subjective Data
-
Date of Service: April 05, 2024
pt seen and examined
reports post op incisional/abd muscular pains but stable
no nausea
NGT bothersome but tolerating
occasional flatus yesterday and feels gas moving, no nausea, no BM yet
voiding without somers
Objective Data
-
Intake and Output
04/04/24 04/05/24 04/06/24
06:59 06:59 06:59
Intake Total 1488 / 1488 2290 / 2290
Output Total 720 / 720 1473 / 1473
Balance 768 / 768 817 / 817
Intake:
IV fluids (Total) 1388 / 1388 700 / 700
IV piggybacks 100 / 100 1090 / 1090
Blood products 250 / 250
Blood Product Amount Infused ( 250 / 250
mL)
Packed Rbc Leukoreduced Unit 250 / 250
[id number]
Output:
Drain Output (Total) 70 / 70 80 / 80
Right Lower Abdomen 70 / 70 80 / 80
Gastrointestinal tube output ( 643 / 643
Total)
Baldwin Sump 100 / 643 / 643
Urine, Somers 550 / 550 750 / 750
Other:
Number of approximated MODERATE 2
amounts of urine
Number of approximated LARGE 1
amounts of urine
Vital Signs
Temp Pulse Resp BP Pulse Ox
98.8 F 79 14 115/68 98
04/04/24 23:39 04/04/24 23:39 04/04/24 23:39 04/04/24 23:39 04/04/24 23:39
Lab Results
04/05/24 05:59
04/05/24 05:59
Calcium 7.9 mg/dl (8.4-10.2) L 04/05/24 05:59
Phosphorus 3.0 mg/dl (2.5-4.5) 04/05/24 05:59
Magnesium 2.3 mg/dl (1.6-2.3) 04/05/24 05:59
Total Bilirubin 0.4 mg/dl (0.2-1.3) 04/05/24 05:59
AST 36 U/L (14-36) 04/05/24 05:59
ALT 68 U/L (0-35) H 04/05/24 05:59
Alkaline Phosphatase 79 U/L (38-126) 04/05/24 05:59
Total Protein 4.5 g/dl (6.3-8.2) L 04/05/24 05:59
Albumin 2.2 g/dl (3.5-5.0) L 04/05/24 05:59
Physical Exam
-
NAD AAOx3
ABD: soft, ND, mild TTP generalized
incisions with glue dressings
SHERIE with light SSF, nonbilious
[2024-04-05 08:25] VITALS: BP 133/79
[2024-04-05] MEDS: FLUSH (NSS) 2 FLUSH IV (08:42)
--- NOTE | 2024-04-05 09:52 | OR.RPT ---
Operative Report
Operative Report
Patient Name: Carole Barajas
: 1955
Date of Operation: 04/02/2024
Pre-op Diagnosis: Perforated viscus, intra-abdominal abscess
Post-op Diagnosis: Perforated gastric ulcer, intra-abdominal abscess
Procedure(s):
1. Diagnostic laparoscopy, washout of intra-abdominal abscess.
2. Laparoscopic modified Chaim patch repair
3. EGD
Surgeon(s):
Dr. Beard
Risk Control Manager(s):
Dr. Morales
Anesthesia: General
Estimated Blood Loss: 11 cc
Urine Output: See anesthesia record
Drains/Lines/Implants: 16 Icelandic Hyde catheter, 19 Icelandic round Jose Angel drain, 18 Icelandic NG
Specimens:
1. Ulcer biopsy for path, rule out H. pylori (obtained intraluminally)
2. Abscess cavity for wound culture aerobic, anaerobic.
3. Omentum for tissue culture
HPI/Surgical Indications:
This is a 69-year-old female who presents with a 10-day history of epigastric abdominal pain, nausea and vomiting who then developed bright red blood per rectum and tarry stools. A CT scan was performed which demonstrated an abscess as well as free
air in the upper abdomen around the lesser curve of the stomach concerning for perforation. Risks/Benefits/Alternatives were discussed at length, and the patient agreed to proceed with surgery.
Operative Findings: Large abscess cavity extending along the lesser curve from the cardia all the way down to the gallbladder, opened up widely and drained. Small tear to the liver, inherent to the dissection was stopped with electrocautery.
Abscess cavity cultured. Initially it was unclear where the site of the perforation was as the entire wall of the abscess cavity was quite inflamed and had densely adherent omentum which was carefully peeled back. We did perform an EGD which help
us identify the site of the perforation which appeared to be at the lesser curve just proximal to the pylorus. A biopsy was taken intraluminally of the ulcer. The overlying omentum over this area was carefully peeled away eventually revealing the
site of perforation. This was closed with 3 interrupted 0 silk sutures followed by tongue of omentum which was secured in a modified Chaim patch manner. A 19 Icelandic round Jose Angel drain was introduced through the right lateralmost port and draped
across the gallbladder fossa over the duodenum, passed our repair and into the abscess cavity. This was secured to the skin with a 2-0 nylon suture. A 18 Icelandic NG tube was placed and position was confirmed endoscopically. A 16 Icelandic Hyde was
placed at the beginning of the case.
Procedure Description:
The patient was brought to the Operating Room and placed in the supine position with the arms out. IV antibiotics were infused and Venodyne stockings placed. Following uneventful induction of general endotracheal anesthesia, a Hyde catheter was
placed. The abdomen was prepped and draped in the usual sterile fashion. The abdomen was entered using a left subcostal Veress technique followed by a 5 mm left upper quadrant Optiview trocar. Pneumoperitoneum to 15 mmHg pressure was obtained
without difficulty and we confirmed that no injury had occurred during our entry. We then placed three 5 mm trocars, 2 in the right upper quadrant and 1 in the left upper quadrant along the ribs. The left lobe of the liver was plastered to the
lesser curve of the stomach. This was gently peeled apart with release of some pus. This fluid was cultured. We then worked to open up the abscess cavity more broadly from the gallbladder laterally up to the hiatus medially. There was a small
avulsion injury near the gallbladder on the liver that was inherent to the dissection. This was cauterized with no injury to the gallbladder itself. The abscess cavity was very inflamed making the tissue planes fairly difficult to identify.
Initially it seemed as if the perforation was more proximal lesser curve. There was some omentum here that was densely adherent which we carefully peeled back with blunt dissection as well as with a bipolar energy device. Liver retractor was
introduced through the right most lateral port to help with elevation of the liver off of the underlying abscess cavity. The left subcostal 5 mm port was upsized to a 12 mm port to allow for introduction of a 4 x 4 sponge as well as passage of
sutures for planned repair. As the clear site of perforation was not identified we then had the team set up an EGD to assist with identification of the perforation. While they were setting this up, we divided the middle portion of the gastrocolic
ligament to enter the lesser sac. The stomach was quite boggy and somewhat difficult to manipulate but there was only simple appearing fluid in the space and no abscess/purulent fluid was identified here. I then scrubbed out to perform the upper
endoscopy while Dr. Morales help manipulate the stomach. The upper endoscopy was largely normal, there was a small 1 to 2 cm hiatal hernia. We were able to intubate the duodenum which appeared normal. We then pulled the scope back and identified
on retroflexion a 1 cm punched-out ulcer just proximal to the pylorus. There was no other significant masses or lesions in the area. Sample of the ulcer wall was biopsied and sent for pathology.
I then scrubbed back in to continue our dissection. Now with a better sense of where the hole was we were able to peel back the heavily adherent omentum in this area. We did at 1 point get slightly off plane getting into the serosa of the stomach
but this was quickly notified and only a small serosal tear was made. Eventually we were able to tease off the omental plug and fully unroofed the ulcer. We then proceeded to close this in a modified Chaim patch fashion using 3 interrupted 0 silk
sutures taking care to leave the tails long. A tongue of omentum was mobilized and then placed over this area and tied down securely without overtightening the tongue of omentum. I then scrubbed back out and we performed a leak test which was
negative. We did discuss the option of placing nasojejunal feeding tube however given the negative leak test we felt fairly assured that we would be able to resume oral nutrition in 2 to 3 days so elected to just place an NG tube whose placement we
confirmed endoscopically to decompress the stomach and the scope was removed. I then scrubbed back in once again. The abscess cavity was suctioned and irrigated out until clear. Hemostasis was achieved. A 19 Icelandic round Jose Angel drain was then
introduced through the right most lateral port and laid across the abscess cavity along the lesser curve. This was hooked to bulb suction and secured to the skin with a 2-0 nylon suture. The 12 mm port was removed and closed with [id number]
PDS using a Erasto Howell suture passer. Satisfied, all ports were then removed under direct visualization and pneumoperitoneum was evacuated. All port sites were then closed with 4-0 Monocryl followed by Dermabond glue. Overall, the patient
tolerated the procedure well and was taken to the Recovery Room postoperatively in stable condition.
I was the attending physician and performed the procedure with assistance from Dr. Morales as no other qualified assistant librarian was available. He was instrumental in providing good tension and counter tension as well as tissue manipulation and
dissection. If he was not present, we would not been able to do this case began a minimally invasive approach. I was present for all portions of the case excluding skin closure.
Wayne Beard MD
--- NOTE | 2024-04-05 10:07 | PTCARENOTE ---
pt to radiology via stretcher with volunteer. Left nare NG Tube clamped for transfer.
[2024-04-05 11:52] LABS: Glucose - Point of Care 91 mg/dl (70-99)
--- NOTE | 2024-04-05 12:14 | W.PN.HOSP.TC ---
Today's Communication/Plan
-
Continue current care
Assessment / Plan
Assessment / Plan
Gen-AAOx3, NAD, obese
HEENT-NC, AT, anicteric, clear oral mm
Neck-supple
CV-reg, no M, +S1/S2
Lungs-clear B/L
Abd-soft, nondistended, mild tenderness, drain in place
Ext-no edema
Musculoskeletal-no cyanosis, clubbing
Skin-warm and dry
Neuro-grossly non-focal
Psych-calm, cooperative
Sepsis due to acute perforated gastric ulcer/intra-abdominal abscess - hemodynamically stable. Underwent washout of abdominal abscess 04/02.
Blood cultures positive for gram-positive cocci in clusters. Fluid culture from the OR abdominal fluid positive for group F Streptococcus. WBC trending down. ID input noted. Continue IV Unasyn.
Perforated gastric ulcer, subacute -stable postop. Underwent laparoscopic modified Chaim patch repair, washout of intra-abdominal abscess, EGD on 04/02. N.p.o. currently. TPN per surgical service.
H. pylori negative based on path report. PPI drip x 72 hours, then BID.
Acute on chronic normocytic anemia -acute postop anemia likely due to operative blood loss, as well as gastric ulcer related GI bleed. Component of hemodilution from IV fluids possible. Hemoglobin improved to 8.8 today, was transfused 1 unit of
blood on April 04.
Hyponatremia -resolved.
Elevated transaminases -likely reactive and due to abdominal process. LFTs improving.
Essential hypertension -controlled. Hold antihypertensives for now.
Hyperlipidemia -on simvastatin at home. Hold for elevated transaminases.
Obesity due to excess calories
Full code
Did well with PT.
Anticipated Discharge: > 48 hours
Subjective/Interval History
-
Date of Service: April 05, 2024
Patient seen and examined. States her abdominal pain has improved. Complaining of fatigue.
Objective Data
-
Labs:
Laboratory Results
04/05/24
05:59
WBC 11.2 H
Hgb 8.8 L
Hct 26.0 L
Plt Count 460 H
Sodium 137
Potassium 3.7
Chloride 104
Carbon Dioxide 27
BUN 9
Creatinine 0.5 L
Glucose 112 H
Calcium 7.9 L
Total Bilirubin 0.4
AST 36
ALT 68 H
Alkaline Phosphatase 79
Vital Signs:
Vital Signs
Temp Pulse Resp BP Pulse Ox
99.5 F 86 16 133/79 99
04/05/24 08:25 04/05/24 08:25 04/05/24 08:25 04/05/24 08:25 04/05/24 08:25
I&O
04/04/24 04/05/24 04/06/24
06:59 06:59 06:59
Intake Total 1488 / 1488 2290 / 2290
Output Total 720 / 720 1473 / 1473
Balance 768 / 768 817 / 817
Review of Systems
-
History Source: Patient
All other systems: Reviewed and negative
[2024-04-05] MEDS: FLUSH (NSS) 1 FLUSH IV (12:17)
--- NOTE | 2024-04-05 12:39 | PTCARENOTE ---
pt returned from Radiology and RLQ SHERIE drain w/significant serosanguineous drainage noted. new dressing placed. will observe.
--- NOTE | 2024-04-05 13:59 | W.PN.ID1 ---
Date of Service
Date of Service: April 05, 2024
Today's Communication
- Neisseria IDd in the abscess culture, also group F strep
- most likely N meningitidis - there has been a hyperinvasive strain causing gastroenteritis in the last 6 years - may also explain the perforation as 20% of these isolates required abdominal surgery
- spleen normal on CT scn
- check compliments
Assessment / Plan
Intraabdominal abscess s/p washout
Perforated gastric ulcer s/p Chaim patch
- blood culture 1 of 2 with anaerobe
- omentum culture: gram stain not done, culture group F strep
- abscess cavity cultures: gram stain many GNR, many GPC, few GPR; culture: group F strep, anaerobic culture in progress,
- Neisseria IDd in the abscess culture, also group F strep
- most likely N meningitidis - there has been a hyperinvasive strain causing gastroenteritis in the last 6 years - may also explain the perforation as 20% of these isolates required abdominal surgery
- spleen normal on CT scn
- check compliments
- will discuss vaccination pending course
- if N gonorrhea then would consider STI screen (unlikely, denies any new sexual partners)
- ulcer path: immunohistochemical stain without H pylori
- note TPN
- start ertapenem (coverage for neisseria)
- follow clinically
does have the equivalent of 2 alcoholic drinks per night, I have advised she limit it to 1
Chief Complaint
-: Other (abdominal abscess)
Subjective / Review of Systems
afebrile
bp stable
nearly resolved leukocytosis
cr stable
Neisseria IDd in the abscess culture
reports increased etoh intake while traveling two months ago - likely irrelevant
does have the equivalent of 2 alcoholic drinks per night, I have advised she limit it to 1
Vital Signs / Physical Exam
Vital Signs
Vital Signs
Temp Pulse Resp BP Pulse Ox
99.5 F 86 16 133/79 99
04/05/24 08:25 04/05/24 08:25 04/05/24 08:25 04/05/24 08:25 04/05/24 08:25
Physical Exam
Constitutional: No Acute Distress
Cardiovascular: Regular Rate and S1/S2; Negative Murmur or Rub
Pulmonary: Clear and Symmetric; Negative Wheezes or Rales
Gastrointestinal: Soft, Non Tender, Non Distended and Normal Bowel Sounds
Skin: Warm and Dry; Negative Rash or Jaundice
Objective Data
Lab Data
Lab Results
04/05/24 05:59
04/05/24 05:59
Estimated Creat Clear 82 ml/min 04/05/24 05:59
Lactic Acid 1.2 mmol/L (0.7-2.0) 04/02/24 11:20
Total Bilirubin 0.4 mg/dl (0.2-1.3) 04/05/24 05:59
AST 36 U/L (14-36) 04/05/24 05:59
ALT 68 U/L (0-35) H 04/05/24 05:59
Alkaline Phosphatase 79 U/L (38-126) 04/05/24 05:59
Most recent labs reviewed.
Micro Results:
04/02/24 11:27 Blood Culture - Preliminary
Blood/Venous Peptostrep. asaccharolyticus
Gram Stain - Preliminary
04/02/24 18:17 Anaerobic Culture - Preliminary
Abscess Culture pending. Anaerobic cultures are examined after 3
days incubation. Additional information to follow.
04/02/24 18:17 Wound Culture - Preliminary
Abscess Group F Streptococcus
Neisseria species
Gram Stain - Preliminary
04/02/24 11:20 Blood Culture - Preliminary
Blood/Venous No Growth in 72 hours- Final report to follow
04/02/24 19:42 Tissue Culture - Final
Abdomen Group F Streptococcus
Gram Stain - Final
--- NOTE | 2024-04-05 14:30 | CM ---
S/P Dx Lap with washout of intra-abdominal abscess on 04/02/24. NPO, NGT, TPN, SHERIE drain. Therapy recommendation for HH PT. Met with patient whose preference is [facility]. referral will be forwarded.
[2024-04-05 14:37] VITALS: PULSE 86; O2SAT 96
--- NOTE | 2024-04-05 15:00 | CHAP ---
Msgr. Tee Brewer of [facility] in [place] anointed Carole and gave her Holy Communion.
[2024-04-05 15:35] VITALS: BP 123/79
[2024-04-05 17:08] LABS: Glucose - Point of Care 104 mg/dl (70-99)
[2024-04-05] MEDS: INVANZ 60 MG IV (17:20)
[2024-04-05] MEDS: LOVENOX 40 MG SC (17:21)
--- NOTE | 2024-04-05 17:35 | W.PN.UPDATE ---
Update Note
Progress Note Update
Brief General surgery note.
Upper GI reviewed, no leak. NG tube removed and patient started on clears.
If patient tolerating clears well, can advance to full liquid diet tomorrow. Anticipate discharge home Tuesday morning without a drain.
[2024-04-05 20:40] VITALS: BP 135/75
[2024-04-05] MEDS: Parenteral Nutrition, Central 1210 IV (21:01)
[2024-04-05] MEDS: TYLENOL 650 MG PO (21:04)
[2024-04-05] MEDS: NSS (PRESERVATIVE FREE) 10 ML IV (21:05)
[2024-04-05] MEDS: PROTONIX IV 40 MG IV (21:05)
[2024-04-05 21:33] LABS: Glucose - Point of Care 120 mg/dl (70-99)
[2024-04-05 23:37] VITALS: BP 123/72
[2024-04-06 05:49] VITALS: BMI 33.4
[2024-04-06 06:07] LABS: Glucose - Point of Care 122 mg/dl (70-99)
[2024-04-06 07:36] VITALS: BP 123/81
[2024-04-06 07:50] LABS: Glucose - Point of Care 131 mg/dl (70-99)
[2024-04-06 08:07] LABS: % Basophils 0.3 % (0-2); % Eosinophils 1.6 % (0-6); % Immature Granulocytes 3.4 % (0-0.5); % Lymphocytes 13.8 % (20.5-51.1); % Monocytes 6.9 % (1.7-9.3); Absolute Eosinophils 0.2 10^3/uL (0-0.7); Absolute Immature Granulocytes 0.4 10^3/uL (0-0.05); Absolute Lymphocytes 1.6 10^3/uL (1.2-3.4); Absolute Monocytes 0.8 10^3/uL (0.1-0.6); Absolute Neutrophils 8.3 10^3/uL (1.4-6.5); Hematocrit 25.7 % (37.0-47.0); Hemoglobin 8.7 g/dL (12.0-16.0); Mean Corp Hgb Conc. 33.9 g/dL (33.0-37.0); Mean Corpuscular Hgb 30.6 pg (27.0-31.0); Mean Corpuscular Volume 90.5 fL (81.0-99.0); Mean Platelet Volume 9.8 fL (7.4-10.4); Nucleated Red Blood Cells % 0 %; Platelet Count 542 10^3/uL (130-400); Red Blood Cell Count 2.84 10^6/uL (4.20-5.40); Red Cell Dist. Width 14.4 % (11.5-14.5); White Blood Cell Count 11.2 10^3/uL (4.8-10.8)
[2024-04-06 08:32] LABS: ALT (SGPT) 80 U/L (0-35); AST (SGOT) 56 U/L (14-36); Albumin 2.3 g/dl (3.5-5.0); Alkaline Phosphatase 82 U/L (38-126); Blood Urea Nitrogen 9 mg/dl (7-17); Calcium 8.4 mg/dl (8.4-10.2); Carbon Dioxide 26 mmol/L (22-30); Chloride 105 mmol/L (98-107); Estimated Creatinine Clearance 84 ml/min; Glucose 111 mg/dl (70-99); Magnesium 2.3 mg/dl (1.6-2.3); Phosphorus 4.1 mg/dl (2.5-4.5); Potassium 4.1 mmol/L (3.5-5.1); Sodium 138 mmol/L (135-145); Total Bilirubin 0.3 mg/dl (0.2-1.3); Total Protein 4.8 g/dl (6.3-8.2); eGFR > 60.00
[2024-04-06] MEDS: PROTONIX IV 40 MG IV ×2 (08:34→20:10)
[2024-04-06] MEDS: NSS (PRESERVATIVE FREE) 10 ML IV ×2 (08:34→20:10)
[2024-04-06] MEDS: FLUSH (NSS) 2 FLUSH IV ×2 (08:35→17:17)
--- NOTE | 2024-04-06 09:58 | W.PN.GS2 ---
Today's Communication / Plan
-
Advance to full's, stop TPN.
Begin dispo planning
Assessment / Plan
-
Assessment: 69 yo F who presented with a 10-day history of epigastric abdominal pain, melena POD#4 s/p EGD, laparoscopic modified Chaim patch repair and drainage of intra-abdominal abscess, for a perforated gastric ulcer. OR cultures positive for
Streptococcus and Neisseria, path negative for atypia or H. pylori.
04/04 1 unit pRBC
04/05 UGI-negative for leak. NG tube removed and started on clears.
-- Still has a persistent, mild leukocytosis. Drain with serous output, no abdominal pain. Could consider residual abscess versus leak however low suspicion at this time.
-- Hemoglobin stable
-- Advance to fulls, can stop TPN
-- Abx: per ID. Appreciate their input regarding gastric ulcer etiology, possibly multifactorial ?EtOH+Neisseria. H. pylori-, no concern for malignancy at this time.
-- Pain control: Tylenol IV and Dilaudid IV, no NSAIDs
-- Twice daily PPI
-- Lovenox for DVT
-- Anticipate discharge home over the weekend without a drain on a full liquid diet x 1 week before advancing to a regular diet. She will follow-up with us in 2 to 3 weeks. She will need to be on a PPI for the time being, decrease EtOH use to 1
drink daily maximum. Antibiotic course to be determined by ID
Time Spent
Total Time Spent with Patient (in minutes): 20
Subjective Data
-
Date of Service: April 06, 2024
Interval Events:
No acute events overnight. Low-grade temp to 100.6. Slept well. Pain Controlled. Denies Nausea/Vomiting, +bowel function. Tolerating diet.
Objective Data
-
Intake and Output
04/05/24 04/06/24 04/07/24
06:59 06:59 06:59
Intake Total 2290 / 2290 2650 / 2650
Output Total 1473 / 1473
Balance 817 / 817 2635 / 2635
Intake:
Oral fluids 1080 / 1080
IV fluids (Total) 700 / 700 120 / 120
IV piggybacks 1090 / 1090 250 / 250
TPN/PPN 1200 / 1200
Blood products 250 / 250
Blood Product Amount Infused ( 250 / 250
mL)
Packed Rbc Leukoreduced Unit 250 / 250
[id number]
Output:
Drain Output (Total) 80 / 80
Right Lower Abdomen 80 / 80
Gastrointestinal tube output ( 643 / 643
Total)
Tompkins Sump 643 / 643
Urine, Hyde 750 / 750
Other:
Number of approximated MODERATE 2 4 1
amounts of urine
Number of approximated LARGE 1
amounts of urine
How many times incontinent 1
MODERATE amount urine
Vital Signs
Temp Pulse Resp BP Pulse Ox
98.7 F 78 18 123/81 97
04/06/24 07:36 04/06/24 07:36 04/06/24 07:36 04/06/24 07:36 04/06/24 07:36
Lab Results
04/06/24 07:49
04/06/24 07:49
Calcium 8.4 mg/dl (8.4-10.2) 04/06/24 07:49
Phosphorus 4.1 mg/dl (2.5-4.5) 04/06/24 07:49
Magnesium 2.3 mg/dl (1.6-2.3) 04/06/24 07:49
Total Bilirubin 0.3 mg/dl (0.2-1.3) 04/06/24 07:49
AST 56 U/L (14-36) H 04/06/24 07:49
ALT 80 U/L (0-35) H 04/06/24 07:49
Alkaline Phosphatase 82 U/L (38-126) 04/06/24 07:49
Total Protein 4.8 g/dl (6.3-8.2) L 04/06/24 07:49
Albumin 2.3 g/dl (3.5-5.0) L 04/06/24 07:49
Physical Exam
-
GENERAL/NEURO: Awake, Alert, no distress
CHEST: Unlabored breathing on RA
ABDOMEN: Soft, Non-Tender, Non-Distended, SHERIE with serous output 80 cc / 24 hours
--- NOTE | 2024-04-06 11:59 | W.PN.HOSP.TC ---
Today's Communication/Plan
-
Continue current care
Assessment / Plan
Assessment / Plan
Gen-AAOx3, NAD, obese
HEENT-NC, AT, anicteric, clear oral mm
Neck-supple
CV-reg, no M, +S1/S2
Lungs-clear B/L
Abd-soft, nondistended, mild tenderness, drain in place
Ext-no edema
Musculoskeletal-no cyanosis, clubbing
Skin-warm and dry
Neuro-grossly non-focal
Psych-calm, cooperative
Sepsis due to acute perforated gastric ulcer/intra-abdominal abscess - hemodynamically stable. Underwent washout of abdominal abscess 04/02.
Blood cultures positive for Peptostrep species. Fluid culture from the OR abdominal fluid positive for group F Streptococcus, Neisseria species. WBC trending down. Tmax 100.6 �F last evening. Currently on IV ertapenem per infectious disease.
Perforated gastric ulcer, subacute -stable postop. Underwent laparoscopic modified Chaim patch repair, washout of intra-abdominal abscess, EGD on 04/02. Single contrast upper GI series performed on April 05 was normal with no extravasation.
Started full liquid diet per surgery, TPN to be discontinued.
H. pylori negative based on path report. Continue twice daily Protonix.
Acute on chronic normocytic anemia -acute postop anemia likely due to operative blood loss, as well as gastric ulcer related GI bleed. Component of hemodilution from IV fluids possible. Hemoglobin stable at 8.7 today, was transfused 1 unit of
blood on April 04.
Hyponatremia -resolved.
Elevated transaminases -likely reactive and due to abdominal process. LFTs improving.
Essential hypertension -controlled. Hold antihypertensives for now.
Hyperlipidemia -on simvastatin at home. Hold for elevated transaminases.
Obesity due to excess calories
Full code
Did well with PT.
Dispo -potential discharge over the weekend if medically stable.
Anticipated Discharge: 24 - 48 hours
Subjective/Interval History
-
Date of Service: April 06, 2024
Patient seen and examined. Complaining of melena and loose stools after full liquid diet. Denies abdominal pain.
Objective Data
-
Labs:
Laboratory Results
04/06/24
07:49
WBC 11.2 H
Hgb 8.7 L
Hct 25.7 L
Plt Count 542 H
Sodium 138
Potassium 4.1
Chloride 105
Carbon Dioxide 26
BUN 9
Creatinine 0.5 L
Glucose 111 H
Calcium 8.4
Total Bilirubin 0.3
AST 56 H
ALT 80 H
Alkaline Phosphatase 82
Vital Signs:
Vital Signs
Temp Pulse Resp BP Pulse Ox
98.7 F 78 18 123/81 97
04/06/24 07:36 04/06/24 07:36 04/06/24 07:36 04/06/24 07:36 04/06/24 07:36
I&O
04/05/24 04/06/24 04/07/24
06:59 06:59 06:59
Intake Total 2290 / 2290 2650 / 2650
Output Total 1473 / 1473
Balance 817 / 817 2635 / 2635
Review of Systems
-
History Source: Patient
All other systems: Reviewed and negative
[2024-04-06 12:31] LABS: Glucose - Point of Care 112 mg/dl (70-99)
--- NOTE | 2024-04-06 13:04 | CM ---
SHERIE drain, NGT out, IV/AB, Advanced to full liquids. Discharge Plan of Care: Home with [facility] and PT.
--- NOTE | 2024-04-06 14:15 | VNURNOTE ---
Home Health Liaison met with patient and family at 1200 to discuss [facility] nurse/therapy, visits, schedule and homebound status. Patient is agreeable and understands that visits at home will be 2-3 x per week to assess and teach medical management.
[facility] contact information provided. Patient is aware that [facility] will contact her for start of care in 1-2 days after discharge from .
[facility] referral completed and accepted previously in [facility].
--- NOTE | 2024-04-06 14:47 | W.PN.ID1 ---
Date of Service
Date of Service: April 06, 2024
Today's Communication
- would like to see sensitivities back before antibiotics finalized, planning oral route, hopefully we'll have those results in 24-48 hrs
Assessment / Plan
Intraabdominal abscess s/p washout
Perforated gastric ulcer s/p Chaim patch
- blood culture 1 of 2 with anaerobe
- omentum culture: gram stain not done, culture group F strep
- abscess cavity cultures: gram stain many GNR, many GPC, few GPR; culture: group F strep, anaerobic culture in progress,
- Neisseria IDd in the abscess culture, also group F strep
- most likely N meningitidis - there has been a hyperinvasive strain causing gastroenteritis in the last 6 years - may also explain the perforation as 20% of these isolates required abdominal surgery
- spleen normal on CT scan
- compliments pending
- will discuss vaccination pending course
- if N gonorrhea then would consider STI screen (unlikely, denies any new sexual partners)
- would like to see sensitivities back before antibiotics finalized, planning oral route, hopefully we'll have those results in 24-48 hrs
- ulcer path: immunohistochemical stain without H pylori
- note TPN
- continue ertapenem
- follow clinically
Chief Complaint
-: Other (abdominal abscess)
Subjective / Review of Systems
afebrile
bp stable
without leukocytosis, cr stable, sensi pending
had a good appetite, shortly thereafter with urgency and diarrhea x1
in good spirits - has a good sense of humor
no abdominal pain
Vital Signs / Physical Exam
Vital Signs
Vital Signs
Temp Pulse Resp BP Pulse Ox
98.7 F 78 18 123/81 97
04/06/24 07:36 04/06/24 07:36 04/06/24 07:36 04/06/24 07:36 04/06/24 07:36
Physical Exam
Constitutional: No Acute Distress
Cardiovascular: Regular Rate and S1/S2; Negative Murmur or Rub
Pulmonary: Clear and Symmetric; Negative Wheezes or Rales
Gastrointestinal: Soft, Non Tender, Non Distended and Normal Bowel Sounds
Skin: Warm, Dry and Other (surgical sites clean, no erythema/dehiscence/drainage); Negative Rash or Jaundice
Lines: Other (drain clear fluid)
Objective Data
Lab Data
Lab Results
04/06/24 07:49
04/06/24 07:49
Estimated Creat Clear 84 ml/min 04/06/24 07:49
Lactic Acid 1.2 mmol/L (0.7-2.0) 04/02/24 11:20
Total Bilirubin 0.3 mg/dl (0.2-1.3) 04/06/24 07:49
AST 56 U/L (14-36) H 04/06/24 07:49
ALT 80 U/L (0-35) H 04/06/24 07:49
Alkaline Phosphatase 82 U/L (38-126) 04/06/24 07:49
Most recent labs reviewed.
Micro Results:
04/02/24 11:20 Blood Culture - Preliminary
Blood/Venous No Growth in 4 days- Final report to follow
04/02/24 18:17 Anaerobic Culture - Preliminary
Abscess Culture pending. Anaerobic cultures are examined after 3
days incubation. Additional information to follow.
04/02/24 11:27 Blood Culture - Preliminary
Blood/Venous Peptostrep. asaccharolyticus
Gram Stain - Preliminary
04/02/24 18:17 Wound Culture - Preliminary
Abscess Group F Streptococcus
Neisseria species
Gram Stain - Preliminary
04/02/24 19:42 Tissue Culture - Final
Abdomen Group F Streptococcus
Gram Stain - Final
Care Review
Plan reviewed with: Physician (Dr Perez - would like sensitivities)
[2024-04-06 15:32] VITALS: BP 133/72
[2024-04-06 15:56] LABS: Glucose - Point of Care 116 mg/dl (70-99)
[2024-04-06] MEDS: INVANZ 60 MG IV (17:17)
[2024-04-06] MEDS: LOVENOX 40 MG SC (17:17)
[2024-04-06] MEDS: TYLENOL 650 MG PO (20:06)
[2024-04-06 21:28] LABS: Glucose - Point of Care 114 mg/dl (70-99)
[2024-04-06 23:39] VITALS: BP 130/73
[2024-04-07 04:09] VITALS: BMI 33.1
[2024-04-07 04:51] VITALS: BP 132/74
[2024-04-07 05:51] LABS: Hematocrit 26.4 % (37.0-47.0); Hemoglobin 8.9 g/dL (12.0-16.0); Mean Corp Hgb Conc. 33.7 g/dL (33.0-37.0); Mean Corpuscular Hgb 30.3 pg (27.0-31.0); Mean Corpuscular Volume 89.8 fL (81.0-99.0); Mean Platelet Volume 9.7 fL (7.4-10.4); Platelet Count 560 10^3/uL (130-400); Red Blood Cell Count 2.94 10^6/uL (4.20-5.40); Red Cell Dist. Width 14.4 % (11.5-14.5); White Blood Cell Count 14.9 10^3/uL (4.8-10.8)
[2024-04-07 07:58] VITALS: BP 136/74
[2024-04-07] MEDS: NSS (PRESERVATIVE FREE) 10 ML IV ×2 (08:35→20:34)
[2024-04-07] MEDS: PROTONIX IV 40 MG IV ×2 (08:35→20:34)
--- NOTE | 2024-04-07 09:21 | W.PN.GS2 ---
Addendum entered and electronically signed by Daniel Alston MD 04/07/24 19:53:
This is a delayed entry. Patient was seen and examined with nurse practitioner earlier in the afternoon hours.
At that time she had overall been feeling well.
Ambulating today.
No nausea but appetite not great
Tmax 102.9 over the last 24 hours but less febrile today up to 100.2
White blood cell count 14
CT abdomen/pelvis imaging obtained. Personally reviewed images. There is a persistent fluid collection underneath the left lobe of the liver adjacent to the lesser curvature of the stomach with the current surgical drain essentially going right
into the middle of this bilobed collection.
SHERIE with scant to no output suggesting that it is clogged based on CT imaging with fluid collection essentially immediately around the Jose Angel drain. I therefore flushed it, additional 10 mL had significant resistance confirming clogged material. I
flushed it with an additional 20 mL of sterile saline solution slowly and placed it back to bulb suction. Hopefully this will enable it to evacuate fluid contents adjacent to it now.
I also discussed with interventional radiologist. Fluid collections are in a difficult location that essentially would require a complete transhepatic approach through the left lobe of the liver to get to. If necessary their preference would be to
try to manipulate a guidewire through the existing surgical drain and try to replace it with a new IR drain through that existing pathway.
Assessment/plan: Okay for clear liquid diet
Continue IV antibiotics
Continue to monitor SHERIE outputs now that it was flushed and hopefully declogged
Future consideration of IR intervention if SHERIE drain remains inadequately functional
Reviewed with patient
Original Note:
Today's Communication / Plan
-
CT abd/pelvis
NPO
Assessment / Plan
-
Assessment: 69 yo F who presented with a 10-day history of epigastric abdominal pain, melena POD#5 s/p EGD, laparoscopic modified Chaim patch repair and drainage of intra-abdominal abscess, for a perforated gastric ulcer. OR cultures positive for
Streptococcus and Neisseria, path negative for atypia or H. pylori.
04/04 1 unit pRBC
04/05 UGI-negative for leak. NG tube removed and started on clears.
04/06 Advanced to FLD
Febrile overnight to 102.9 with increase in WBC. No longer passing flatus, abd with some distention and LUQ discomfort.
VSS
-- Check CT abd/pelvis with contrast
-- Keep NPO, will resume TPN tonight
-- Abx: per ID. Appreciate their input regarding gastric ulcer etiology, possibly multifactorial ?EtOH+Neisseria. H. pylori-, no concern for malignancy at this time. Await sensitivities from OR.
-- Pain control: Tylenol IV and Dilaudid IV, no NSAIDs
-- Twice daily PPI
-- Lovenox for DVT ppx
Subjective Data
-
Date of Service: April 07, 2024
Patient seen and examined at bedside. Reports feeling generally unwell. Fevers overnight. Has not passed any flatus since yesterday, no BM's since black stool yesterday. Denies n/v. Voiding without difficulty.
Objective Data
-
Intake and Output
04/06/24 04/07/24 04/08/24
06:59 06:59 06:59
Intake Total 2650 / 2650 660 / 660
Output Total 490 / 490
Balance 2635 / 2635 170 / 170
Intake:
Oral fluids 1080 / 1080
IV fluids (Total) 120 / 120
IV piggybacks 250 / 250 60 / 60
TPN/PPN 1200 / 1200 600 / 600
Output:
Drain Output (Total)
Right Lower Abdomen
Urine, Voided 480 / 480
Other:
Number of approximated MODERATE 4 1
amounts of urine
Number of approximated LARGE 2
amounts of urine
How many times incontinent 1
MODERATE amount urine
Vital Signs
Temp Pulse Resp BP Pulse Ox
99.8 F 90 17 136/74 97
04/07/24 07:58 04/07/24 07:58 04/07/24 07:58 04/07/24 07:58 04/07/24 07:58
Lab Results
04/07/24 05:42
04/06/24 07:49
Calcium 8.4 mg/dl (8.4-10.2) 04/06/24 07:49
Phosphorus 4.1 mg/dl (2.5-4.5) 04/06/24 07:49
Magnesium 2.3 mg/dl (1.6-2.3) 04/06/24 07:49
Total Bilirubin 0.3 mg/dl (0.2-1.3) 04/06/24 07:49
AST 56 U/L (14-36) H 04/06/24 07:49
ALT 80 U/L (0-35) H 04/06/24 07:49
Alkaline Phosphatase 82 U/L (38-126) 04/06/24 07:49
Total Protein 4.8 g/dl (6.3-8.2) L 04/06/24 07:49
Albumin 2.3 g/dl (3.5-5.0) L 04/06/24 07:49
Physical Exam
-
GENERAL/NEURO: Awake, Alert, no distress
CHEST: Unlabored breathing on RA
ABDOMEN: Soft, mild tenderness to LUQ, mildly distended, SHERIE with minimal serous outputs
[2024-04-07] MEDS: OMNIPAQUE 50 ML PO (09:43)
[2024-04-07 12:04] LABS: Urine Albumin Negative (Neg - Trace); Urine Bilirubin Negative (Negative); Urine Character Clear (Clear); Urine Color Yellow; Urine Glucose Negative (Negative); Urine Ketone Negative (Negative); Urine Leukocyte Negative (Negative); Urine Nitrite Negative (Negative); Urine Occult Blood Negative (Negative); Urine Specific Gravity 1.005 (<1.030); Urine Urobilinogen Negative (Neg - 1+)
--- NOTE | 2024-04-07 12:37 | W.PN.ID1 ---
Date of Service
Date of Service: April 07, 2024
Today's Communication
- continue ertapenem - follow clinically
Assessment / Plan
New Fever
Progression of leukocytosis
- repeat ROS nonfocal
- CT a/p collections appear smaller overall
- CXR clear lung orr
- if diarrhea then send stool for C diff (none reported today)
- continue ertapenem - follow clinically
Intraabdominal abscess s/p washout
Perforated gastric ulcer s/p Chaim patch
- blood culture 1 of 2 with anaerobe
- omentum culture: gram stain not done, culture group F strep
- abscess cavity cultures: gram stain many GNR, many GPC, few GPR; culture: group F strep, anaerobic culture in progress,
- Neisseria IDd in the abscess culture, also group F strep
- most likely N meningitidis - there has been a hyperinvasive strain causing gastroenteritis in the last 6 years - may also explain the perforation as 20% of these isolates required abdominal surgery
- spleen normal on CT scan
- compliments pending
- will discuss vaccination pending course
- if N gonorrhea then would consider STI screen (unlikely, denies any new sexual partners)
- ulcer path: immunohistochemical stain without H pylori
- no off of TPN
- continue ertapenem
- follow clinically
Chief Complaint
-: Fever and Other (abdominal abscess)
Subjective / Review of Systems
febrile overnight
bp stable
increasing wbc now 14.9
cr stable
tissue cultures unchanged
no: sinus tenderness, sore throat, nausea, vomiting, diarrhea today (now formed, was liquid x1 yesterdy), dysuria, suprapubic tenderness, new rashes, new joint pains, tenderness over lines, unliteral extremity swelling
minimal, nonproductive cough
Vital Signs / Physical Exam
Vital Signs
Vital Signs
Temp Pulse Resp BP Pulse Ox
99.8 F 90 17 136/74 97
04/07/24 07:58 04/07/24 07:58 04/07/24 07:58 04/07/24 07:58 04/07/24 08:00
Physical Exam
Constitutional: No Acute Distress
Cardiovascular: Regular Rate and S1/S2; Negative Murmur or Rub
Pulmonary: Clear and Symmetric; Negative Wheezes or Rales
Gastrointestinal: Soft, Non Tender, Non Distended and Normal Bowel Sounds
Genito-Urinary: Negative Suprapubic Tenderness
Skin: Warm and Dry; Negative Rash or Jaundice
Lines: PICC (no erythema)
Objective Data
Lab Data
Lab Results
04/07/24 05:42
04/06/24 07:49
Estimated Creat Clear 84 ml/min 04/06/24 07:49
Lactic Acid 1.2 mmol/L (0.7-2.0) 04/02/24 11:20
Total Bilirubin 0.3 mg/dl (0.2-1.3) 04/06/24 07:49
AST 56 U/L (14-36) H 04/06/24 07:49
ALT 80 U/L (0-35) H 04/06/24 07:49
Alkaline Phosphatase 82 U/L (38-126) 04/06/24 07:49
Most recent labs reviewed.
Micro Results:
04/02/24 11:20 Blood Culture - Final
Blood/Venous No Growth - Final Report
04/02/24 18:17 Wound Culture - Final
Abscess Group F Streptococcus
Neisseria species
Gram Stain - Final
04/02/24 18:17 Anaerobic Culture - Final
Abscess
04/02/24 11:27 Blood Culture - Preliminary
Blood/Venous Peptostrep. asaccharolyticus
Gram Stain - Preliminary
04/02/24 19:42 Tissue Culture - Final
Abdomen Group F Streptococcus
Gram Stain - Final
Care Review
Plan reviewed with: Physician (Dr Winchester - tavares)
--- NOTE | 2024-04-07 13:20 | W.PN.HOSP.TC ---
Today's Communication/Plan
-
Continue antibiotics
Diet per surgery
Assessment / Plan
Assessment / Plan
Gen-AAOx3, NAD, obese
HEENT-NC, AT, anicteric, clear oral mm
Neck-supple
CV-reg, no M, +S1/S2
Lungs-clear B/L
Abd-soft, nondistended, mild tenderness, drain in place
Ext-no edema
Musculoskeletal-no cyanosis, clubbing
Skin-warm and dry
Neuro-grossly non-focal
Psych-calm, cooperative
Sepsis due to acute perforated gastric ulcer/intra-abdominal abscess - hemodynamically stable. Underwent washout of abdominal abscess 04/02.
Blood cultures positive for Peptostrep species. Fluid culture from the OR abdominal fluid positive for group F Streptococcus, Neisseria species. IV ertapenem per infectious disease.
Fever and leukocytosis have recurred in the past [address] abdomen pelvis performed today shows a second small fluid and air collection in the abdomen, as well as a fluid and air collection along the right lateral and inferior margin of
the liver. Will defer to surgery to decide on further drainage.
Perforated gastric ulcer, subacute - Underwent laparoscopic modified Chaim patch repair, washout of intra-abdominal abscess, EGD on 04/02. Single contrast upper GI series performed on April 05 was normal with no extravasation.
H. pylori negative based on path report. Continue twice daily Protonix.
Currently on clear liquid diet per surgery. Decision on resuming TPN per surgery.
Acute on chronic normocytic anemia -acute postop anemia likely due to operative blood loss, as well as gastric ulcer related GI bleed. Component of hemodilution from IV fluids possible. Hemoglobin stable at 8.9 today, was transfused 1 unit of
blood on April 04. Moving bowels, still dark.
Hyponatremia -resolved.
Elevated transaminases -likely reactive and due to abdominal process. LFTs stable.
Essential hypertension -controlled. Hold antihypertensives for now.
Hyperlipidemia -on simvastatin at home. Hold for elevated transaminases.
Obesity due to excess calories
Full code
Did well with PT.
Dispo -not medically ready for discharge yet.
Anticipated Discharge: > 48 hours
Subjective/Interval History
-
Date of Service: April 07, 2024
Patient seen and examined. Looks comfortable. No new complaints.
Objective Data
-
Labs:
Laboratory Results
04/07/24
05:42
WBC 14.9 H
Hgb 8.9 L
Hct 26.4 L
Plt Count 560 H
Vital Signs:
Vital Signs
Temp Pulse Resp BP Pulse Ox
99.8 F 90 17 136/74 97
04/07/24 07:58 04/07/24 07:58 04/07/24 07:58 04/07/24 07:58 04/07/24 08:00
I&O
04/06/24 04/07/24 04/08/24
06:59 06:59 06:59
Intake Total 2650 / 2650 660 / 660
Output Total 490 / 490
Balance 2635 / 2635 170 / 170
Review of Systems
-
History Source: Patient
All other systems: Reviewed and negative
[2024-04-07 15:39] VITALS: BP 107/65
[2024-04-07] MEDS: INVANZ 60 MG IV (15:39)
[2024-04-07] MEDS: DILAUDID 1 MG IV (15:55)
[2024-04-07] MEDS: LOVENOX 40 MG SC (17:00)
[2024-04-07] MEDS: Parenteral Nutrition, Central 1210 IV (20:34)
[2024-04-07 23:20] LABS: Glucose - Point of Care 145 mg/dl (70-99)
[2024-04-07 23:35] VITALS: BP 141/75
[2024-04-08 06:00] VITALS: BMI 32.5
[2024-04-08 07:10] VITALS: BP 133/72
--- NOTE | 2024-04-08 08:18 | W.PN.GS2 ---
Addendum entered and electronically signed by Daniel Alston MD 04/08/24 11:09:
Patient seen and examined in follow-up with surgical RN DIABETES.
Patient sitting in chair at bedside with her friends gathered.
Tolerating full liquid diet, no nausea.
No significant postoperative pain.
Feels like energy levels are returning. Offers no additional concerns or questions.
AFVSS
WBC down to 9.9 today, thrombocytosis noted of 589 close to where it has been in the past few days likely acute phase reactant
Abd: SHERIE with minimal serosanguineous fluid, not purulent, not bilious
Assessment/plan: Advancing to full liquid diet today, continue to monitor SHERIE outputs after yesterday's flushing
Continue antibiotics
Original Note:
Today's Communication / Plan
-
FLD
Assessment / Plan
-
Assessment: 69 yo F who presented with a 10-day history of epigastric abdominal pain, melena POD#6 s/p EGD, laparoscopic modified Chaim patch repair and drainage of intra-abdominal abscess, for a perforated gastric ulcer. OR cultures positive for
Streptococcus and Neisseria, path negative for atypia or H. pylori.
04/04 1 unit pRBC
16 UGI-negative for leak. NG tube removed and started on clears.
04/06 Advanced to FLD
04/07 Fevers: UA neg, CXR wnl, CT abd/pelvis:a persistent fluid collection underneath the left lobe of the liver adjacent to the lesser curvature of the stomach with the current surgical drain essentially going right into the middle of this bilobed
collection. Fluid collections are in a difficult location that essentially would require a complete transhepatic approach through the left lobe of the liver to get to. If necessary IR preference would be to try to manipulate a guidewire through
the existing surgical drain and try to replace it with a new IR drain through that existing pathway.
SHERIE flushed at bedside last night as it was clogged; however outputs remain minimal
AFVSS
Labs pending
-- Tolerating clears, advance to FLD
-- Continue TPN, await labs prior to renewal
-- Abx: per ID. Await sensitivities from OR.
-- Pain control: Tylenol IV and Dilaudid IV, no NSAIDs
-- Twice daily PPI
-- Lovenox for DVT ppx
Subjective Data
-
Date of Service: April 08, 2024
Patient seen and examined at bedside. Denies n/v. Tolerating liquids. No fevers overnight. Some residual discomfort to epigastric area.
Objective Data
-
Intake and Output
04/07/24 04/08/24 04/09/24
06:59 06:59 06:59
Intake Total 660 / 660 1140 / 1140
Output Total 490 / 490
Balance 170 / 170 1120 / 1120
Intake:
Oral fluids 1140 / 1140
IV piggybacks 60 / 60
TPN/PPN 600 / 600
Output:
Drain Output (Total)
Right Lower Abdomen
Urine, Voided 480 / 480
Other:
Number of approximated MODERATE 1
amounts of urine
Number of approximated LARGE 2 2
amounts of urine
How many times incontinent 1
SATURATED amount urine
Vital Signs
Temp Pulse Resp BP Pulse Ox
98.7 F 80 18 133/72 99
04/08/24 07:10 04/08/24 07:10 04/08/24 07:10 04/08/24 07:10 04/08/24 07:10
Calcium 8.4 mg/dl (8.4-10.2) 04/06/24 07:49
Phosphorus 4.1 mg/dl (2.5-4.5) 04/06/24 07:49
Magnesium 2.3 mg/dl (1.6-2.3) 04/06/24 07:49
Total Bilirubin 0.3 mg/dl (0.2-1.3) 04/06/24 07:49
AST 56 U/L (14-36) H 04/06/24 07:49
ALT 80 U/L (0-35) H 04/06/24 07:49
Alkaline Phosphatase 82 U/L (38-126) 04/06/24 07:49
Total Protein 4.8 g/dl (6.3-8.2) L 04/06/24 07:49
Albumin 2.3 g/dl (3.5-5.0) L 04/06/24 07:49
Physical Exam
-
GENERAL/NEURO: Awake, Alert, no distress
CHEST: Unlabored breathing on RA
ABDOMEN: Soft, mild tenderness to LUQ, ND, SHERIE with minimal serous outputs
[2024-04-08 08:29] LABS: Glucose - Point of Care 126 mg/dl (70-99)
[2024-04-08] MEDS: PROTONIX IV 40 MG IV ×2 (08:56→21:51)
[2024-04-08] MEDS: NSS (PRESERVATIVE FREE) 10 ML IV ×2 (08:56→21:51)
[2024-04-08] MEDS: FLUSH (NSS) 2 FLUSH IV (08:58)
[2024-04-08 10:08] LABS: Hematocrit 27.4 % (37.0-47.0); Mean Corp Hgb Conc. 32.8 g/dL (33.0-37.0); Mean Corpuscular Hgb 30.7 pg (27.0-31.0); Mean Corpuscular Volume 93.5 fL (81.0-99.0); Mean Platelet Volume 9.9 fL (7.4-10.4); Platelet Count 589 10^3/uL (130-400); Red Blood Cell Count 2.93 10^6/uL (4.20-5.40); Red Cell Dist. Width 14.1 % (11.5-14.5); White Blood Cell Count 9.9 10^3/uL (4.8-10.8)
[2024-04-08 10:32] LABS: ALT (SGPT) 145 U/L (0-35); AST (SGOT) 83 U/L (14-36); Albumin 2.7 g/dl (3.5-5.0); Alkaline Phosphatase 98 U/L (38-126); Blood Urea Nitrogen 11 mg/dl (7-17); Calcium 8.7 mg/dl (8.4-10.2); Carbon Dioxide 26 mmol/L (22-30); Chloride 103 mmol/L (98-107); Estimated Creatinine Clearance 83 ml/min; Glucose 121 mg/dl (70-99); Magnesium 2.6 mg/dl (1.6-2.3); Potassium 4.5 mmol/L (3.5-5.1); Sodium 137 mmol/L (135-145); Total Bilirubin 0.4 mg/dl (0.2-1.3); Total Protein 5.5 g/dl (6.3-8.2); eGFR > 60.00
--- NOTE | 2024-04-08 10:45 | W.PN.ID1 ---
Date of Service
Date of Service: April 08, 2024
Today's Communication
blood cultures should always be ordered in sets of two to assist with 1) sensitivity of the test 2) assessing for contamination which is common
await lab confirmation of Neisseria and sensitivities - this will require a send out.
Assessment / Plan
Post Op fever - resolved
- atelectasis noted on CXR - could be cause of the fever
- two sets of blood cultures to be sent
- ua negative
- follow clinically
Intraabdominal abscess s/p washout
Perforated gastric ulcer s/p Chaim patch
- Neisseria IDd in the abscess culture, also group F strep
- lab will send out the Neisseria for sensitivities
- most likely N meningitidis - there has been a hyperinvasive strain causing gastroenteritis in the last 6 years - may also explain the perforation as 20% of these isolates required abdominal surgery
- compliments pending
- will discuss vaccination pending course
- if N gonorrhea then would consider STI screen (unlikely, denies any new sexual partners)
- continue ertapenem
- follow clinically
Chief Complaint
-: Fever and Other (abdominal abscess)
Subjective / Review of Systems
no further fevers
bp stable
resolved leukocytosis, persistent thrombocytosis
cr 0.5
a blood culture was sent today
UA neg
SHERIE flushed
reports she had chlamydia 20 years ago, treated; she was checked for HIV and it was negative. She has been monogamous since. I dont think that relates to her current presentation
Vital Signs / Physical Exam
Vital Signs
Vital Signs
Temp Pulse Resp BP Pulse Ox
98.7 F 80 18 133/72 99
04/08/24 07:10 04/08/24 07:10 04/08/24 07:10 04/08/24 07:10 04/08/24 08:30
Physical Exam
Constitutional: No Acute Distress
Cardiovascular: Regular Rate and S1/S2; Negative Murmur or Rub
Pulmonary: Clear and Symmetric; Negative Wheezes or Rales
Gastrointestinal: Soft, Non Tender, Non Distended and Normal Bowel Sounds
Skin: Warm and Dry; Negative Rash or Jaundice
Objective Data
Lab Data
Lab Results
04/08/24 09:57
04/08/24 09:57
Estimated Creat Clear 83 ml/min 04/08/24 09:57
Lactic Acid 1.2 mmol/L (0.7-2.0) 04/02/24 11:20
Total Bilirubin 0.4 mg/dl (0.2-1.3) 04/08/24 09:57
AST 83 U/L (14-36) H 04/08/24 09:57
ALT 145 U/L (0-35) H 04/08/24 09:57
Alkaline Phosphatase 98 U/L (38-126) 04/08/24 09:57
Most recent labs reviewed.
Micro Results:
04/08/24 10:04 Blood Culture - Pending
Blood/Venous
04/02/24 11:20 Blood Culture - Final
Blood/Venous No Growth - Final Report
04/02/24 18:17 Wound Culture - Final
Abscess Group F Streptococcus
Neisseria species
Gram Stain - Final
04/02/24 18:17 Anaerobic Culture - Final
Abscess
04/02/24 11:27 Blood Culture - Preliminary
Blood/Venous Peptostrep. asaccharolyticus
Gram Stain - Preliminary
04/02/24 19:42 Tissue Culture - Final
Abdomen Group F Streptococcus
Gram Stain - Final
--- NOTE | 2024-04-08 11:36 | W.PN.HOSP.TC ---
Today's Communication/Plan
-
Continue current care
Assessment / Plan
Assessment / Plan
Gen-AAOx3, NAD, obese
HEENT-NC, AT, anicteric, clear oral mm
Neck-supple
CV-reg, no M, +S1/S2
Lungs-clear B/L
Abd-soft, nondistended, mild tenderness, drain in place
Ext-no edema
Musculoskeletal-no cyanosis, clubbing
Skin-warm and dry
Neuro-grossly non-focal
Psych-calm, cooperative
Sepsis due to acute perforated gastric ulcer/intra-abdominal abscess - hemodynamically stable. Underwent washout of abdominal abscess 04/02.
Blood cultures positive for Peptostrep species, possible contamination. Fluid culture from the OR abdominal fluid positive for group F Streptococcus, Neisseria species. IV ertapenem per infectious disease.
Fever and leukocytosis have recurred in the past [address] abdomen pelvis 04/07 shows a second small fluid and air collection in the abdomen, as well as a fluid and air collection along the right lateral and inferior margin of the liver.
Fever resolved. Leukocytosis resolved. Clinically improving.
Perforated gastric ulcer, subacute - Underwent laparoscopic modified Chaim patch repair, washout of intra-abdominal abscess, EGD on 04/02. Single contrast upper GI series performed on April 05 was normal with no extravasation.
H. pylori negative based on path report. Continue twice daily Protonix.
Currently on full liquid diet and TPN per surgery.
Acute on chronic normocytic anemia -acute postop anemia likely due to operative blood loss, as well as gastric ulcer related GI bleed. Component of hemodilution from IV fluids possible. Hemoglobin stable at 9.0 today, was transfused 1 unit of
blood on April 04. Moving bowels, still dark.
Hyponatremia -resolved.
Elevated transaminases -likely reactive and due to abdominal process. Transaminases came down but now starting to rise. Bilirubin and alkaline phosphatase normal.
Essential hypertension -controlled. Hold antihypertensives for now.
Hyperlipidemia -on simvastatin at home. Hold for elevated transaminases.
Obesity due to excess calories
Full code
Did well with PT.
Dispo -not medically ready for discharge yet.
Anticipated Discharge: 24 - 48 hours
Subjective/Interval History
-
Date of Service: April 08, 2024
Patient seen and examined. Feeling better overall. No complaints.
Objective Data
-
Labs:
Laboratory Results
04/08/24
09:57
WBC 9.9
Hgb 9.0 L
Hct 27.4 L
Plt Count 589 H
Sodium 137
Potassium 4.5
Chloride 103
Carbon Dioxide 26
BUN 11
Creatinine 0.5 L
Glucose 121 H
Calcium 8.7
Total Bilirubin 0.4
AST 83 H
ALT 145 H
Alkaline Phosphatase 98
Vital Signs:
Vital Signs
Temp Pulse Resp BP Pulse Ox
98.7 F 80 18 133/72 99
04/08/24 07:10 04/08/24 07:10 04/08/24 07:10 04/08/24 07:10 04/08/24 08:30
I&O
04/07/24 04/08/24 04/09/24
06:59 06:59 06:59
Intake Total 660 / 660 1140 / 1140
Output Total 490 / 490
Balance 170 / 170 1120 / 1120
Review of Systems
-
History Source: Patient
All other systems: Reviewed and negative
[2024-04-08 12:00] LABS: Glucose - Point of Care 131 mg/dl (70-99)
--- NOTE | 2024-04-08 13:12 | CM ---
CM reviewed chart. Plan for dc home with [facility] when stable. Last PT eval on 04/05.
CM to follow and watch for needs.
[2024-04-08 15:10] VITALS: BP 131/66
[2024-04-08] MEDS: INVANZ 60 MG IV (16:45)
[2024-04-08] MEDS: LOVENOX 40 MG SC (16:54)
[2024-04-08 18:00] LABS: Glucose - Point of Care 89 mg/dl (70-99)
[2024-04-08] MEDS: Parenteral Nutrition, Central 1210 IV (21:49)
[2024-04-08 23:03] VITALS: BP 110/62
[2024-04-08 23:33] LABS: Glucose - Point of Care 130 mg/dl (70-99)
[2024-04-09 00:47] LABS: Complement C3 130 mg/dl (88-165)
[2024-04-09 05:55] VITALS: BMI 32.1
[2024-04-09 05:58] LABS: Glucose - Point of Care 113 mg/dl (70-99)
[2024-04-09 06:05] LABS: Hemoglobin 8.8 g/dL (12.0-16.0); Mean Corp Hgb Conc. 33.8 g/dL (33.0-37.0); Mean Corpuscular Hgb 31.1 pg (27.0-31.0); Mean Corpuscular Volume 91.9 fL (81.0-99.0); Mean Platelet Volume 9.9 fL (7.4-10.4); Platelet Count 572 10^3/uL (130-400); Red Blood Cell Count 2.83 10^6/uL (4.20-5.40); White Blood Cell Count 8.3 10^3/uL (4.8-10.8)
[2024-04-09 06:34] LABS: ALT (SGPT) 265 U/L (0-35); AST (SGOT) 181 U/L (14-36); Albumin 2.6 g/dl (3.5-5.0); Alkaline Phosphatase 99 U/L (38-126); Blood Urea Nitrogen 10 mg/dl (7-17); Calcium 8.6 mg/dl (8.4-10.2); Carbon Dioxide 28 mmol/L (22-30); Chloride 103 mmol/L (98-107); Estimated Creatinine Clearance 82 ml/min; Glucose 110 mg/dl (70-99); Magnesium 2.5 mg/dl (1.6-2.3); Phosphorus 4.4 mg/dl (2.5-4.5); Potassium 4.8 mmol/L (3.5-5.1); Sodium 138 mmol/L (135-145); Total Bilirubin 0.2 mg/dl (0.2-1.3); Total Protein 5.3 g/dl (6.3-8.2); Triglycerides 146 mg/dl (10-149); eGFR > 60.00
[2024-04-09 07:27] VITALS: BP 120/65
[2024-04-09] MEDS: NSS (PRESERVATIVE FREE) 10 ML IV ×2 (08:45→19:47)
[2024-04-09] MEDS: PROTONIX IV 40 MG IV ×2 (08:45→19:47)
[2024-04-09] MEDS: FLUSH (NSS) 2 FLUSH IV (08:56)
--- NOTE | 2024-04-09 10:32 | W.PN.GS2 ---
Today's Communication / Plan
-
FLD
ABX
PO pain meds
Assessment / Plan
-
Assessment: 69 yo F who presented with a 10-day history of epigastric abdominal pain, melena POD#7 EGD, laparoscopic modified Chaim patch repair and drainage of intra-abdominal abscess, for a perforated gastric ulcer. OR cultures positive for
Streptococcus and Neisseria, path negative for atypia or H. pylori.
04/04 1 unit pRBC
04/05 UGI-negative for leak. NG tube removed and started on clears.
04/06 Advanced to FLD
04/07 Fevers: UA neg, CXR wnl, CT abd/pelvis:a persistent fluid collection underneath the left lobe of the liver adjacent to the lesser curvature of the stomach with the current surgical drain essentially going right into the middle of this bilobed
collection. Fluid collections are in a difficult location that essentially would require a complete transhepatic approach through the left lobe of the liver to get to. Would consider lap washout if does not continue to improve.
SHERIE flushed at bedside 04/07 as it was clogged; however outputs remain minimal
AFVSS
Leukocytosis resolved
-- Continue FLD
-- Complete TPN today
-- Abx: per ID. Await sensitivities from OR.
-- Pain control: Tylenol, Tramadol with Dilaudid IV prn breakthrough, no NSAIDs
-- Resume home dosage of celexa, lisinopril
-- Twice daily PPI
-- Lovenox for DVT ppx
Subjective Data
-
Date of Service: April 09, 2024
Patient seen and examined at bedside with Dr. Philip. Hernández n/v. Tolerating liquids. Passing stools. Mild abdominal discomfort.
Objective Data
-
Intake and Output
04/08/24 04/09/24 04/10/24
06:59 06:59 06:59
Intake Total 1140 / 1140 1889
Output Total
Balance 1120 / 1120 1884
Intake:
Oral fluids 1140 / 1140 1440 / 1440
TPN/PPN 450 / 450
Output:
Drain Output (Total)
Right Lower Abdomen
Other:
Number of approximated MODERATE 4
amounts of urine
Number of approximated LARGE 2 2
amounts of urine
How many times incontinent 2
SMALL amount urine
How many times incontinent 1
MODERATE amount urine
How many times incontinent 1 1
SATURATED amount urine
Number of unmeasured liquid
stools
Rectum 2
Vital Signs
Temp Pulse Resp BP Pulse Ox
98.9 F 81 19 120/65 97
04/09/24 07:27 04/09/24 07:27 04/09/24 07:27 04/09/24 07:27 04/09/24 08:30
Lab Results
04/09/24 05:52
04/09/24 05:51
Calcium 8.6 mg/dl (8.4-10.2) 04/09/24 05:51
Phosphorus 4.4 mg/dl (2.5-4.5) 04/09/24 05:51
Magnesium 2.5 mg/dl (1.6-2.3) H 04/09/24 05:51
Total Bilirubin 0.2 mg/dl (0.2-1.3) 04/09/24 05:51
AST 181 U/L (14-36) H 04/09/24 05:51
ALT 265 U/L (0-35) H 04/09/24 05:51
Alkaline Phosphatase 99 U/L (38-126) 04/09/24 05:51
Total Protein 5.3 g/dl (6.3-8.2) L 04/09/24 05:51
Albumin 2.6 g/dl (3.5-5.0) L 04/09/24 05:51
Physical Exam
-
GENERAL/NEURO: Awake, Alert, no distress
CHEST: Unlabored breathing on RA
ABDOMEN: Soft, mild tenderness to LUQ with deep palpation, ND, SHERIE with minimal serous outputs
--- NOTE | 2024-04-09 10:47 | W.PN.HOSP.TC ---
Today's Communication/Plan
-
drain exchange
trend LFTs
IV abx per ID
await final cutlure data
Assessment / Plan
Assessment / Plan
Gen-AAOx3, NAD, obese
HEENT-NC, AT, anicteric, clear oral mm
Neck-supple
CV-reg, no M, +S1/S2
Lungs-clear B/L
Abd-soft, nondistended, mild tenderness, drain in place
Ext-no edema
Musculoskeletal-no cyanosis, clubbing
Skin-warm and dry
Neuro-grossly non-focal
Psych-calm, cooperative
Sepsis due to acute perforated gastric ulcer/intra-abdominal abscess - hemodynamically stable. Underwent washout of abdominal abscess 04/02.
Blood cultures positive for Group F Peptostrep species, possible contamination. Fluid culture from the OR abdominal fluid positive for group F Streptococcus, Neisseria species. IV ertapenem per infectious disease.
Repeat CT abdomen pelvis 04/07 shows a second small fluid and air collection in the abdomen, as well as a fluid and air collection along the right lateral and inferior margin of the liver.
Fever resolved. Leukocytosis resolved. Clinically improving.
Plan for drain exchange by [facility] noted.
Perforated gastric ulcer, subacute - Underwent laparoscopic modified Chaim patch repair, washout of intra-abdominal abscess, EGD on 04/02. Single contrast upper GI series performed on April 05 was normal with no extravasation.
H. pylori negative based on path report. Continue twice daily Protonix.
Currently on full liquid diet and TPN per surgery.
Acute on chronic normocytic anemia -acute postop anemia likely due to operative blood loss, as well as gastric ulcer related GI bleed. Component of hemodilution from IV fluids possible. Hemoglobin stable. transfused 1 unit of blood on April 04.
Moving bowels.
Hyponatremia -resolved.
Elevated transaminases -likely reactive and due to abdominal process/sepsis/?TPN. Transaminases came down but now starting to rise. Bilirubin and alkaline phosphatase normal. Hold statin. Trend for now.
Essential hypertension -controlled with home meds lisinopril 10mg qhs
Hyperlipidemia -on simvastatin at home. Hold for elevated transaminases.
Obesity due to excess calories
Full code
Did well with PT.
Anticipated Discharge: > 48 hours
Subjective/Interval History
-
Date of Service: April 09, 2024
denies nausea or vomiting
Objective Data
-
Labs:
Laboratory Results
04/09/24 04/09/24
05:51 05:52
WBC 8.3
Hgb 8.8 L
Hct 26.0 L
Plt Count 572 H
Sodium 138
Potassium 4.8
Chloride 103
Carbon Dioxide 28
BUN 10
Creatinine 0.5 L
Glucose 110 H
Calcium 8.6
Total Bilirubin 0.2
AST 181 H
ALT 265 H
Alkaline Phosphatase 99
Vital Signs:
Vital Signs
Temp Pulse Resp BP Pulse Ox
98.9 F 81 19 120/65 97
04/09/24 07:27 04/09/24 07:27 04/09/24 07:27 04/09/24 07:27 04/09/24 08:30
I&O
04/08/24 04/09/24 04/10/24
06:59 06:59 06:59
Intake Total 1140 / 1140 1890 / 1890
Output Total
Balance 1120 / 1120 1885 / 188
Data Reviewed
-
Total Time Spent with Patient (in minutes): 56
[2024-04-09 11:54] LABS: Glucose - Point of Care 141 mg/dl (70-99)
--- NOTE | 2024-04-09 12:04 | W.PN.ID1 ---
Date of Service
Date of Service: April 09, 2024
Today's Communication
switch to augmentin
follow LFTs
follow clinically
Assessment / Plan
Intraabdominal abscess s/p washout
Perforated gastric ulcer s/p Chaim patch
- Neisseria IDd in the abscess culture, also group F strep
- lab will send out the Neisseria for sensitivities; may take several days
- most likely N meningitidis - there has been a hyperinvasive strain causing gastroenteritis in the last 6 years - may also explain the perforation as 20% of these isolates required abdominal surgery
- compliments normal
- will discuss vaccination pending course
- if N gonorrhea then would consider STI screen (unlikely, denies any new sexual partners)
- switch to augmentin plan at least 4 weeks
- follow LFTs
- follow clinically
Chief Complaint
-: Fever and Other (abdominal abscess)
Subjective / Review of Systems
afebrile
bp stable
without leukocytosis
cr stable
awaiting sensi on the neisseria
drain with minimal output
Vital Signs / Physical Exam
Vital Signs
Vital Signs
Temp Pulse Resp BP Pulse Ox
98.9 F 81 19 120/65 97
04/09/24 07:27 04/09/24 07:27 04/09/24 07:27 04/09/24 07:27 04/09/24 08:30
Physical Exam
Constitutional: No Acute Distress
Cardiovascular: Regular Rate and S1/S2; Negative Murmur or Rub
Pulmonary: Clear and Symmetric; Negative Wheezes or Rales
Gastrointestinal: Soft, Non Tender, Non Distended and Normal Bowel Sounds
Skin: Warm and Dry; Negative Rash or Jaundice
Lines: Other (drain clear fluid)
Objective Data
Lab Data
Lab Results
04/09/24 05:52
04/09/24 05:51
Estimated Creat Clear 82 ml/min 04/09/24 05:51
Lactic Acid 1.2 mmol/L (0.7-2.0) 04/02/24 11:20
Total Bilirubin 0.2 mg/dl (0.2-1.3) 04/09/24 05:51
AST 181 U/L (14-36) H 04/09/24 05:51
ALT 265 U/L (0-35) H 04/09/24 05:51
Alkaline Phosphatase 99 U/L (38-126) 04/09/24 05:51
Most recent labs reviewed.
Micro Results:
04/08/24 10:04 Blood Culture - Preliminary
Blood/Venous No Growth in 24 hours- Final report to follow
04/02/24 11:27 Blood Culture - Final
Blood/Venous Peptostrep. asaccharolyticus
Gram Stain - Final
04/08/24 18:24 C. difficile GDH Antigen & Toxins - Final
Feces/Stool Negative for toxigenic C.difficile
04/08/24 12:28 Blood Culture - Pending
Blood/Venous
04/02/24 18:17 Wound Culture - Final
Abscess Group F Streptococcus
Neisseria species
Gram Stain - Final
04/02/24 11:20 Blood Culture - Final
Blood/Venous No Growth - Final Report
04/02/24 18:17 Anaerobic Culture - Final
Abscess
04/02/24 19:42 Tissue Culture - Final
Abdomen Group F Streptococcus
Gram Stain - Final
Care Review
Plan reviewed with: Physician (Dr Chris ochoas)
[2024-04-09] MEDS: AUGMENTIN 875 MG/125 MG 1 TABLET PO ×2 (13:10→19:47)
--- NOTE | 2024-04-09 13:13 | CM ---
Reviewed the chart notes. TPN continues today. Full liquid diet. CM continues to be available to patient/family and is monitoring medical plan for needs at discharge.
Plan: Discharge to home with VN when medically stable.
[2024-04-09 15:28] VITALS: BP 111/62
[2024-04-09] MEDS: TYLENOL 1000 MG PO (15:36)
[2024-04-09] MEDS: ZESTRIL PO (17:29)
[2024-04-09] MEDS: LOVENOX 40 MG SC (17:30)
[2024-04-09 17:56] LABS: Glucose - Point of Care 134 mg/dl (70-99)
[2024-04-09] MEDS: ZOFRAN 4 MG IV (19:48)
[2024-04-09] MEDS: CELEXA 20 MG PO (21:35)
[2024-04-09] MEDS: ULTRAM 50 MG PO (21:35)
[2024-04-09 23:39] VITALS: BP 112/66
[2024-04-09 23:57] LABS: Glucose - Point of Care 96 mg/dl (70-99)
[2024-04-10 03:27] VITALS: BMI 31.7
[2024-04-10 05:38] LABS: ALT (SGPT) 375 U/L (0-35); AST (SGOT) 256 U/L (14-36); Albumin 2.8 g/dl (3.5-5.0); Alkaline Phosphatase 127 U/L (38-126); Blood Urea Nitrogen 12 mg/dl (7-17); Calcium 8.8 mg/dl (8.4-10.2); Carbon Dioxide 26 mmol/L (22-30); Chloride 102 mmol/L (98-107); Estimated Creatinine Clearance 81 ml/min; Glucose 92 mg/dl (70-99); Potassium 5.4 mmol/L (3.5-5.1); Sodium 137 mmol/L (135-145); Total Bilirubin 0.4 mg/dl (0.2-1.3); Total Protein 5.7 g/dl (6.3-8.2); eGFR > 60.00
[2024-04-10 06:00] VITALS: BMI 31.7
[2024-04-10 06:42] LABS: Blood Urea Nitrogen 13 mg/dl (7-17); Calcium 8.8 mg/dl (8.4-10.2); Carbon Dioxide 26 mmol/L (22-30); Chloride 102 mmol/L (98-107); Estimated Creatinine Clearance 81 ml/min; Glucose 94 mg/dl (70-99); Potassium 5.3 mmol/L (3.5-5.1); Sodium 135 mmol/L (135-145); eGFR > 60.00
[2024-04-10 07:25] VITALS: BP 120/65
[2024-04-10 08:20] LABS: Hematocrit 28.9 % (37.0-47.0); Hemoglobin 9.6 g/dL (12.0-16.0); Mean Corp Hgb Conc. 33.2 g/dL (33.0-37.0); Mean Corpuscular Hgb 30.6 pg (27.0-31.0); Mean Platelet Volume 9.8 fL (7.4-10.4); Platelet Count 685 10^3/uL (130-400); Red Blood Cell Count 3.14 10^6/uL (4.20-5.40); White Blood Cell Count 12.4 10^3/uL (4.8-10.8)
[2024-04-10] MEDS: AUGMENTIN 875 MG/125 MG 1 TABLET PO ×2 (08:56→20:21)
[2024-04-10] MEDS: PROTONIX IV 40 MG IV (08:57)
[2024-04-10] MEDS: NSS (PRESERVATIVE FREE) 10 ML IV (08:57)
--- NOTE | 2024-04-10 10:02 | VATNOTE ---
PICC line assessed for need. Client stopped TPN last evening. Diet has been attempted to be advanced but client states that she vomited after last attempted meal. Will leave PICC line in place at this time.
[2024-04-10 10:15] LABS: Direct Bilirubin 0.3 mg/dl (0.0-0.4); GGTP 80 U/L (12-43)
--- NOTE | 2024-04-10 10:42 | W.PN.HOSP.TC ---
Today's Communication/Plan
-
Elevated LFTs
General surgery recs
Monitor for diet tolerance
Assessment / Plan
Assessment / Plan
Gen-AAOx3, NAD, obese
HEENT-NC, AT, anicteric, clear oral mm
Neck-supple
CV-reg, no M, +S1/S2
Lungs-clear B/L
Abd-soft, nondistended, mild tenderness, drain in place
Ext-no edema
Musculoskeletal-no cyanosis, clubbing
Skin-warm and dry
Neuro-grossly non-focal
Psych-calm, cooperative
Sepsis due to acute perforated gastric ulcer/intra-abdominal abscess - hemodynamically stable. Underwent washout of abdominal abscess 04/02.
Blood cultures positive for Group F Peptostrep species,. Fluid culture from the OR abdominal fluid positive for group F Streptococcus, Neisseria species. Neisseria species as send out.
Repeat CT abdomen pelvis 04/07 shows a second small fluid and air collection in the abdomen, as well as a fluid and air collection along the right lateral and inferior margin of the liver.
Fever resolved. Clinically improving. Mild bump in WBC
IV ertapenem per infectious disease switch to p.o. Augmentin .
Perforated gastric ulcer, subacute - Underwent laparoscopic modified Chaim patch repair, washout of intra-abdominal abscess, EGD on 04/02. Single contrast upper GI series performed on April 05 was normal with no extravasation.
H. pylori negative based on path report. Continue twice daily Protonix.
TPN discontinued on 04/09. Continue with full liquids. Advance per surgery.
General surgery Recs
Acute on chronic normocytic anemia -acute postop anemia likely due to operative blood loss, as well as gastric ulcer related GI bleed. Component of hemodilution from IV fluids possible. Hemoglobin stable. transfused 1 unit of blood on April 04.
Moving bowels.
Hyponatremia -resolved.
Elevated transaminases -likely reactive and due to abdominal process/sepsis/?TPN. Transaminases came down but now starting to rise. Bilirubin and alkaline phosphatase normal. Hold statin. Trend for now. LFTs add pending for today.
Essential hypertension -controlled with home meds lisinopril 10mg qhs
Hyperlipidemia -on simvastatin at home. Hold for elevated transaminases.
Obesity due to excess calories
Full code
Anticipated Discharge: > 48 hours
Subjective/Interval History
-
Date of Service: April 10, 2024
Episode of nausea vomiting yesterday. So far seems to be tolerating breakfast and medications. States of abdominal discomfort but no severe pain
Objective Data
-
Labs:
Laboratory Results
04/10/24 04/10/24 04/10/24
04:38 06:13 08:14
WBC 12.4 H
Hgb 9.6 L
Hct 28.9 L
Plt Count 685 H
Sodium 137 135
Potassium 5.4 H 5.3 H
Chloride 102 102
Carbon Dioxide 26 26
BUN 12 13
Creatinine 0.6 0.6
Glucose 92 94
Calcium 8.8 8.8
Total Bilirubin 0.4
AST 256 H
ALT 375 H
Alkaline Phosphatase 127 H
Vital Signs:
Vital Signs
Temp Pulse Resp BP Pulse Ox
98.8 F 82 16 120/65 97
04/10/24 07:25 04/10/24 07:25 04/10/24 07:25 04/10/24 07:25 04/10/24 08:00
I&O
04/09/24 04/10/24 04/11/24
06:59 06:59 06:59
Intake Total 1889 / 1889 2210 / 2210
Output Total 500 / 500
Balance 1885 / 188 1710 / 1710
Data Reviewed
-
Total Time Spent with Patient (in minutes): 55
--- NOTE | 2024-04-10 11:21 | W.PN.ID1 ---
Date of Service
Date of Service: April 10, 2024
Today's Communication
added cipro, continue augmentin
will trend LFTs, may be related to TPN which was stopped last night
Hyperkalemia management per medicine
Assessment / Plan
Transaminitis
- progressed
- TPN playing a role? stopped last night
- CT abd was done after elevation began without obstruction
- antibiotics were switched yesterday
- agree with repeating lfts later today
Intraabdominal abscess s/p washout
Perforated gastric ulcer s/p Chaim patch
Progression of thrombocytosis
- Neisseria IDd in the abscess culture, also group F strep
- await formal ID and sensi of suspected Neisseria; may take several days, await results
- most likely N meningitidis - there has been a hyperinvasive strain causing gastroenteritis in the last 6 years - may also explain the perforation as 20% of these isolates required abdominal surgery
- will discuss vaccination pending course
- if N gonorrhea then would consider STI screen (unlikely, denies any new sexual partners)
- continue augmentin, add ciprofloxacin plan at least 4 weeks
- follow clinically
Hyperkalemia management per medicine
Chief Complaint
-: Fever and Other (abdominal abscess)
Subjective / Review of Systems
afebrile
bp stable
relapse of leukocytosis today
thrombocytosis persists and worse today
mild hyperkalemia
surgery attempting drain repositioning
Vital Signs / Physical Exam
Vital Signs
Vital Signs
Temp Pulse Resp BP Pulse Ox
98.8 F 82 16 120/65 97
04/10/24 07:25 04/10/24 07:25 04/10/24 07:25 04/10/24 07:25 04/10/24 08:00
Physical Exam
Constitutional: No Acute Distress
Cardiovascular: Regular Rate
Pulmonary: Symmetric and Non Labored
Gastrointestinal: Non Distended
Skin: Dry; Negative Rash or Jaundice
Neurological: Awake
Lines: Other (drain actively being repositioned by surgery during my rounds)
Objective Data
Lab Data
Lab Results
04/10/24 08:14
04/10/24 06:13
Estimated Creat Clear 81 ml/min 04/10/24 06:13
Lactic Acid 1.2 mmol/L (0.7-2.0) 04/02/24 11:20
Total Bilirubin 0.4 mg/dl (0.2-1.3) 04/10/24 04:38
GGT 80 U/L (12-43) H 04/10/24 04:38
AST 256 U/L (14-36) H 04/10/24 04:38
ALT 375 U/L (0-35) H 04/10/24 04:38
Alkaline Phosphatase 127 U/L (38-126) H 04/10/24 04:38
Most recent labs reviewed.
Micro Results:
04/08/24 10:04 Blood Culture - Preliminary
Blood/Venous No Growth in 48 hours- Final report to follow
04/08/24 12:28 Blood Culture - Preliminary
Blood/Venous No Growth in 24 hours- Final report to follow
04/02/24 11:27 Blood Culture - Final
Blood/Venous Peptostrep. asaccharolyticus
Gram Stain - Final
04/08/24 18:24 C. difficile GDH Antigen & Toxins - Final
Feces/Stool Negative for toxigenic C.difficile
04/02/24 18:17 Wound Culture - Final
Abscess Group F Streptococcus
Neisseria species
Gram Stain - Final
04/02/24 11:20 Blood Culture - Final
Blood/Venous No Growth - Final Report
04/02/24 18:17 Anaerobic Culture - Final
Abscess
04/02/24 19:42 Tissue Culture - Final
Abdomen Group F Streptococcus
Gram Stain - Final
Care Review
Plan reviewed with: Physician (Dr Beard - drain)
[2024-04-10] MEDS: CIPRO 500 MG PO ×2 (11:41→20:21)
--- NOTE | 2024-04-10 13:24 | W.PN.GS2 ---
Today's Communication / Plan
-
TPN stopped. Antibiotics changed per ID.
Drain bumped.
Plan for IR drain exchange tomorrow. Discussed with Dr. Ledesma
Assessment / Plan
-
Assessment: 69 yo F who presented with a 10-day history of epigastric abdominal pain, melena POD#8 EGD, laparoscopic modified Chaim patch repair and drainage of intra-abdominal abscess, for a perforated gastric ulcer. OR cultures positive for
Streptococcus and Neisseria, path negative for atypia or H. pylori.
04/04 1 unit pRBC
04/05 UGI-negative for leak. NG tube removed and started on clears.
04/06 Advanced to FLD
04/07 Fevers: UA neg, CXR wnl, CT abd/pelvis:a persistent fluid collection underneath the left lobe of the liver adjacent to the lesser curvature of the stomach with the current surgical drain essentially going right into the middle of this bilobed
collection. Fluid collections are in a difficult location that essentially would require a complete transhepatic approach through the left lobe of the liver to get to. Would consider lap washout if does not continue to improve.
SHERIE flushed at bedside 04/07 as it was clogged; however outputs remain minimal
AFVSS
Leukocytosis back and liver enzymes slightly elevated ?TPN vs ?Antibiotics.
-- Continue FLD. Will plan for rewiring of drain tomorrow if no improvement, plan to return to the OR for a laparoscopic washout on .
-- TPN stopped
-- Abx: per ID.
-- Pain control: Tylenol, Tramadol with Dilaudid IV prn breakthrough, no NSAIDs
-- Resume home dosage of celexa, lisinopril
-- Twice daily PPI
-- Lovenox for DVT ppx
Time Spent
Total Time Spent with Patient (in minutes): 20
Subjective Data
-
Date of Service: April 10, 2024
Interval Events:
No acute events overnight. Slept okay. Pain Controlled. 1 episode of nausea and vomiting, +bowel function. Tolerating liquid diet.
Objective Data
-
Intake and Output
04/09/24 04/10/24 04/11/24
06:59 06:59 06:59
Intake Total 1890 / 1890 2210 / 2210
Output Total 5 / 5 500 / 500
Balance 1885 / 1885 1710 / 1710
Intake:
Oral fluids 1440 / 1440 1460 / 1460
TPN/PPN 450 / 450 750 / 750
Output:
Drain Output (Total) 5 / 5
Right Lower Abdomen 5 / 5
Urine, Voided 500 / 500
Other:
Number of approximated MODERATE 4 1
amounts of urine
Number of approximated LARGE 2 2
amounts of urine
How many times incontinent 2 2
SMALL amount urine
How many times incontinent 1
MODERATE amount urine
How many times incontinent 1
SATURATED amount urine
Number of unmeasured liquid
stools
Rectum 2
Vital Signs
Temp Pulse Resp BP Pulse Ox
98.8 F 82 16 120/65 97
04/10/24 07:25 04/10/24 07:25 04/10/24 07:25 04/10/24 07:25 04/10/24 08:00
Lab Results
04/10/24 08:14
04/10/24 06:13
Calcium 8.8 mg/dl (8.4-10.2) 04/10/24 06:13
Phosphorus 4.4 mg/dl (2.5-4.5) 04/09/24 05:51
Magnesium 2.5 mg/dl (1.6-2.3) H 04/09/24 05:51
Total Bilirubin 0.4 mg/dl (0.2-1.3) 04/10/24 04:38
Direct Bilirubin 0.3 mg/dl (0.0-0.4) 04/10/24 04:38
AST 256 U/L (14-36) H 04/10/24 04:38
ALT 375 U/L (0-35) H 04/10/24 04:38
Alkaline Phosphatase 127 U/L (38-126) H 04/10/24 04:38
Total Protein 5.7 g/dl (6.3-8.2) L 04/10/24 04:38
Albumin 2.8 g/dl (3.5-5.0) L 04/10/24 04:38
Physical Exam
-
GENERAL/NEURO: Awake, Alert, no distress
CHEST: Unlabored breathing on RA
ABDOMEN: Soft, Non-Tender, Non-Distended, SHERIE with no output. Drain flushed with 6 cc sterile saline without issue. Drain bumped back till blacked dot was visible and resecured at the skin.
[2024-04-10 15:55] VITALS: BP 128/70
[2024-04-10] MEDS: TYLENOL 1000 MG PO (16:46)
--- NOTE | 2024-04-10 16:49 | PTCARENOTE ---
Pt c/o mild pain, Tylenol given to patient. Pt also spiked fever of 101.7. Dr. Linton and Dr. Mercer notified.
[2024-04-10] MEDS: ULTRAM 50 MG PO (17:35)
[2024-04-10] MEDS: LOVENOX 40 MG SC (17:36)
[2024-04-10] MEDS: ZESTRIL PO (17:36)
[2024-04-10] MEDS: PROTONIX 40 MG PO (20:21)
[2024-04-10] MEDS: CELEXA 20 MG PO (22:52)
[2024-04-10 23:31] VITALS: BP 122/71
[2024-04-11 06:00] VITALS: BMI 32.2
[2024-04-11 06:08] LABS: % Basophils 0.2 % (0-2); % Eosinophils 0.5 % (0-6); % Immature Granulocytes 1.3 % (0-0.5); % Lymphocytes 11.6 % (20.5-51.1); % Monocytes 8.4 % (1.7-9.3); Absolute Eosinophils 0.1 10^3/uL (0-0.7); Absolute Immature Granulocytes 0.2 10^3/uL (0-0.05); Absolute Lymphocytes 1.4 10^3/uL (1.2-3.4); Absolute Neutrophils 9.7 10^3/uL (1.4-6.5); Hematocrit 27.9 % (37.0-47.0); Mean Corp Hgb Conc. 32.3 g/dL (33.0-37.0); Mean Corpuscular Hgb 30.1 pg (27.0-31.0); Mean Corpuscular Volume 93.3 fL (81.0-99.0); Mean Platelet Volume 10.2 fL (7.4-10.4); Nucleated Red Blood Cells % 0 %; Platelet Count 599 10^3/uL (130-400); Red Blood Cell Count 2.99 10^6/uL (4.20-5.40); Red Cell Dist. Width 13.6 % (11.5-14.5); White Blood Cell Count 12.4 10^3/uL (4.8-10.8)
[2024-04-11 06:50] LABS: ALT (SGPT) 269 U/L (0-35); AST (SGOT) 71 U/L (14-36); Albumin 2.8 g/dl (3.5-5.0); Alkaline Phosphatase 137 U/L (38-126); Blood Urea Nitrogen 13 mg/dl (7-17); Calcium 8.7 mg/dl (8.4-10.2); Carbon Dioxide 30 mmol/L (22-30); Chloride 98 mmol/L (98-107); Estimated Creatinine Clearance 81 ml/min; Glucose 97 mg/dl (70-99); Potassium 4.7 mmol/L (3.5-5.1); Sodium 134 mmol/L (135-145); Total Bilirubin 0.6 mg/dl (0.2-1.3); Total Protein 5.7 g/dl (6.3-8.2); eGFR > 60.00
[2024-04-11 07:00] VITALS: BP 101/70
[2024-04-11] MEDS: PROTONIX 40 MG PO ×2 (07:51→21:22)
[2024-04-11] MEDS: CIPRO 500 MG PO (07:51)
[2024-04-11] MEDS: AUGMENTIN 875 MG/125 MG 1 TABLET PO ×2 (07:51→21:22)
--- NOTE | 2024-04-11 08:09 | W.PN.GS2 ---
Today's Communication / Plan
-
IR drain exchange
Assessment / Plan
-
Assessment: 69 yo F who presented with a 10-day history of epigastric abdominal pain, melena POD#8 EGD, laparoscopic modified Chaim patch repair and drainage of intra-abdominal abscess, for a perforated gastric ulcer. OR cultures positive for
Streptococcus and Neisseria, path negative for atypia or H. pylori.
04/04 1 unit pRBC
04/05 UGI-negative for leak. NG tube removed and started on clears.
04/06 Advanced to FLD
04/07 Fevers: UA neg, CXR wnl, CT abd/pelvis:a persistent fluid collection underneath the left lobe of the liver adjacent to the lesser curvature of the stomach with the current surgical drain essentially going right into the middle of this bilobed
collection. Fluid collections are in a difficult location that essentially would require a complete transhepatic approach through the left lobe of the liver to get to. Would consider lap washout if does not continue to improve.
SHERIE flushed at bedside 04/07 as it was clogged; however outputs remain minimal
AFVSS
Leukocytosis back and liver enzymes slightly elevated ?TPN vs ?Antibiotics.
-- NPO for procedure with IR today, OK for FLD post-procedure
-- Abx: per ID.
-- Pain control: Tylenol, Tramadol with Dilaudid IV prn breakthrough, no NSAIDs
-- Resume home dosage of celexa, lisinopril
-- Twice daily PPI
-- Lovenox for DVT ppx
-- If no improvement, for lap washout tomorrow 04/12
Subjective Data
-
Date of Service: April 11, 2024
Clinically improving, feels well, pain controlled
Objective Data
-
Intake and Output
04/10/24 04/11/24 04/12/24
06:59 06:59 06:59
Intake Total 2210 / 2210 1200 / 1200
Output Total 500 / 500
Balance 1710 / 1710 1185 / 1185
Intake:
Oral fluids 1460 / 1460 1200 / 1200
TPN/PPN 750 / 750
Output:
Drain Output (Total)
Right Lower Abdomen
Urine, Voided 500 / 500
Other:
Number of approximated MODERATE 1 2
amounts of urine
Number of approximated LARGE 2
amounts of urine
How many times incontinent 2
SMALL amount urine
Vital Signs
Temp Pulse Resp BP Pulse Ox
98 F 79 18 101/70 96
04/11/24 07:00 04/11/24 07:00 04/11/24 07:00 04/11/24 07:00 04/11/24 07:00
Lab Results
04/11/24 05:42
04/11/24 05:42
Calcium 8.7 mg/dl (8.4-10.2) 04/11/24 05:42
Phosphorus 4.4 mg/dl (2.5-4.5) 04/09/24 05:51
Magnesium 2.5 mg/dl (1.6-2.3) H 04/09/24 05:51
Total Bilirubin 0.6 mg/dl (0.2-1.3) 04/11/24 05:42
Direct Bilirubin 0.3 mg/dl (0.0-0.4) 04/10/24 04:38
AST 71 U/L (14-36) H 04/11/24 05:42
ALT 269 U/L (0-35) H 04/11/24 05:42
Alkaline Phosphatase 137 U/L (38-126) H 04/11/24 05:42
Total Protein 5.7 g/dl (6.3-8.2) L 04/11/24 05:42
Albumin 2.8 g/dl (3.5-5.0) L 04/11/24 05:42
Physical Exam
-
Gen: NAD
Abd: soft, approp ttp, incisions cdi, drain with scant serous fluid
--- NOTE | 2024-04-11 10:20 | W.PN.HOSP.TC ---
Today's Communication/Plan
-
IRad for drain exchange
trend cbc/cmp
po abx
FLD post procedure
Assessment / Plan
Assessment / Plan
Gen-AAOx3, NAD, obese
HEENT-NC, AT, anicteric, clear oral mm
Neck-supple
CV-reg, no M, +S1/S2
Lungs-clear B/L
Abd-soft, nondistended, mild tenderness, drain in place
Ext-no edema
Musculoskeletal-no cyanosis, clubbing
Skin-warm and dry
Neuro-grossly non-focal
Psych-calm, cooperative
Sepsis due to acute perforated gastric ulcer/intra-abdominal abscess - hemodynamically stable. Underwent washout of abdominal abscess 04/02.
Blood cultures positive for Group F Peptostrep species,. Fluid culture from the OR abdominal fluid positive for group F Streptococcus, Neisseria species. Neisseria species as send out.
Repeat CT abdomen pelvis 04/07 shows a second small fluid and air collection in the abdomen, as well as a fluid and air collection along the right lateral and inferior margin of the liver.
Mild leukocytosis and fever noted.
IV ertapenem per infectious disease switch to p.o. Augmentin +Cipro
Plan for IRAD drain exchange today
If no improvement-plan for washout tentative in AM.
NPO for now and liquid diet post drain placement
Perforated gastric ulcer, subacute - Underwent laparoscopic modified Chaim patch repair, washout of intra-abdominal abscess, EGD on 04/02. Single contrast upper GI series performed on April 05 was normal with no extravasation.
H. pylori negative based on path report. Continue twice daily Protonix.
TPN discontinued on 04/09. Continue with full liquids post procedure. Advance per surgery.
General surgery Recs
Acute on chronic normocytic anemia -acute postop anemia likely due to operative blood loss, as well as gastric ulcer related GI bleed. Component of hemodilution from IV fluids possible. Hemoglobin stable. transfused 1 unit of blood on April 04.
Moving bowels.
Hyponatremia -resolved.
Elevated transaminases -likely reactive and due to abdominal process/sepsis/?TPN. Transaminases coming down. Bilirubin and alkaline phosphatase normal. Hold statin. Trend for now.
Essential hypertension -controlled with home meds lisinopril 10mg qhs
Hyperlipidemia -on simvastatin at home. Hold for elevated transaminases.
Obesity due to excess calories
DVT ppx-lovenox
Full code
Anticipated Discharge: > 48 hours
Subjective/Interval History
-
Date of Service: April 11, 2024
spiked fever yesterday
no nausea or vomiting
had bm earlier today-loose
Objective Data
-
Labs:
Laboratory Results
04/11/24
05:42
WBC 12.4 H
Hgb 9.0 L
Hct 27.9 L
Plt Count 599 H
Sodium 134 L
Potassium 4.7
Chloride 98
Carbon Dioxide 30
BUN 13
Creatinine 0.6
Glucose 97
Calcium 8.7
Total Bilirubin 0.6
AST 71 H
ALT 269 H
Alkaline Phosphatase 137 H
Vital Signs:
Vital Signs
Temp Pulse Resp BP Pulse Ox
98 F 79 18 101/70 96
04/11/24 07:00 04/11/24 07:00 04/11/24 07:00 04/11/24 07:00 04/11/24 07:00
I&O
04/10/24 04/11/24 04/12/24
06:59 06:59 06:59
Intake Total 2210 / 2210 1200 / 1200
Output Total 500 / 500
Balance 1710 / 1710 1185 / 1185
--- NOTE | 2024-04-11 12:28 | CM ---
Reviewed the chart notes. Per notes, NPO for procedure with IR today, OK for FLD post-procedure. CM continues to be available to patient/family and is monitoring medical plan for needs at discharge.
Plan: Discharge when medically stable to home on VN.
--- NOTE | 2024-04-11 12:47 | VATNOTE ---
Discussed PICC line need with attending MD. MD states patient for IRAD procedure today, and potentially will need to OR tomorrow with possibility of resuming TPN. Will leave PICC line in place at this time.
[2024-04-11 14:40] VITALS: BP 125/67; BP_SYST 76
--- NOTE | 2024-04-11 15:59 | W.PN.ID1 ---
Date of Service
Date of Service: April 11, 2024
Today's Communication
- for drain replacement with IR today
- continue augmentin, ciprofloxacin plan at least 4 weeks
Assessment / Plan
Transaminitis
- peaked and downtrending
- suspect driven by TPN
- CT abd was done after elevation began without obstruction
- antibiotics were switched 04/09
Intraabdominal abscess s/p washout
Perforated gastric ulcer s/p Chaim patch
Progression of thrombocytosis
- for drain replacement with IR today
- note plan for possible washout tomorrow - follow
- Neisseria IDd in the abscess culture, also group F strep
- await formal ID and sensi of suspected Neisseria; may take several days, await results
- could be an incorrect preliminary ID, alternatively may be N meningitidis - there has been a hyperinvasive strain causing gastroenteritis in the last 6 years - may also explain the perforation as 20% of these isolates required abdominal surgery
- will discuss vaccination pending course
- if N gonorrhea then would consider STI screen (unlikely, denies any new sexual partners)
- continue augmentin, stop ciprofloxacin plan at least 4 weeks
- follow clinically
Chief Complaint
-: Fever and Other (abdominal abscess)
Subjective / Review of Systems
fever curve improved
bp stable
stable mild leukocytosis
improved thrombocytosis
cr stable
Vital Signs / Physical Exam
Vital Signs
Vital Signs
Temp Pulse Resp BP Pulse Ox
98 F 76 16 125/67 100
04/11/24 07:00 04/11/24 14:40 04/11/24 14:40 04/11/24 14:40 04/11/24 14:40
Physical Exam
Constitutional: No Acute Distress
Cardiovascular: Regular Rate and S1/S2; Negative Murmur or Rub
Pulmonary: Clear and Symmetric; Negative Wheezes or Rales
Gastrointestinal: Soft, Non Tender, Non Distended and Normal Bowel Sounds
Skin: Warm and Dry; Negative Rash or Jaundice
Objective Data
Lab Data
Lab Results
04/11/24 05:42
04/11/24 05:42
Estimated Creat Clear 81 ml/min 04/11/24 05:42
Lactic Acid 1.2 mmol/L (0.7-2.0) 04/02/24 11:20
Total Bilirubin 0.6 mg/dl (0.2-1.3) 04/11/24 05:42
GGT 80 U/L (12-43) H 04/10/24 04:38
AST 71 U/L (14-36) H 04/11/24 05:42
ALT 269 U/L (0-35) H 04/11/24 05:42
Alkaline Phosphatase 137 U/L (38-126) H 04/11/24 05:42
Most recent labs reviewed.
Micro Results:
04/11/24 15:25 Wound Culture - Pending
Abscess Gram Stain - Pending
04/08/24 12:28 Blood Culture - Preliminary
Blood/Venous No Growth in 72 hours- Final report to follow
04/08/24 10:04 Blood Culture - Preliminary
Blood/Venous No Growth in 72 hours- Final report to follow
04/02/24 11:27 Blood Culture - Final
Blood/Venous Peptostrep. asaccharolyticus
Gram Stain - Final
04/08/24 18:24 C. difficile GDH Antigen & Toxins - Final
Feces/Stool Negative for toxigenic C.difficile
04/02/24 18:17 Wound Culture - Final
Abscess Group F Streptococcus
Neisseria species
Gram Stain - Final
04/02/24 11:20 Blood Culture - Final
Blood/Venous No Growth - Final Report
04/02/24 18:17 Anaerobic Culture - Final
Abscess
05/13/24 19:42 Tissue Culture - Final
Abdomen Group F Streptococcus
Gram Stain - Final
[2024-04-11 16:03] VITALS: BP 125/65
[2024-04-11] MEDS: ULTRAM 50 MG PO (16:24)
--- NOTE | 2024-04-11 17:53 | W.PN.UPDATE ---
Update Note
Progress Note Update
Chart reviewed:
Transaminitis
- peaked and downtrending
- suspect driven by TPN
- CT abd was done after elevation began without obstruction
- antibiotics were switched 04/09
Intraabdominal abscess s/p washout
Perforated gastric ulcer s/p Chaim patch
Progression of thrombocytosis
- for drain replacement with IR today
- note plan for possible washout tomorrow - follow
- Neisseria IDd in the abscess culture, also group F strep
- send out sensitivities have resulted and confirmed sensitivity to Augmentin
- continue augmentin, stop ciprofloxacin plan at least 4 weeks
- follow clinically
[2024-04-11] MEDS: LOVENOX 40 MG SC (17:58)
[2024-04-11] MEDS: ZESTRIL 10 MG PO (17:59)
[2024-04-11] MEDS: CELEXA 20 MG PO (21:22)
[2024-04-11] MEDS: TYLENOL 1000 MG PO (21:25)
[2024-04-11 23:57] VITALS: BP 84/48
[2024-04-12] VITALS (8 sets, daily range): BP systolic 80–115; BP diastolic 50–64; PULSE 80; BMI 31.1
[2024-04-12] MEDS: NSS 1000 IV ×3 (00:54→21:07)
[2024-04-12 05:42] LABS: % Basophils 0.2 % (0-2); % Eosinophils 0.3 % (0-6); % Lymphocytes 9.9 % (20.5-51.1); % Monocytes 7.1 % (1.7-9.3); % Neutrophils 81.5 % (42.2-75.2); Absolute Immature Granulocytes 0.2 10^3/uL (0-0.05); Absolute Lymphocytes 1.5 10^3/uL (1.2-3.4); Absolute Monocytes 1.1 10^3/uL (0.1-0.6); Absolute Neutrophils 12.1 10^3/uL (1.4-6.5); Hematocrit 26.4 % (37.0-47.0); Hemoglobin 8.6 g/dL (12.0-16.0); Mean Corp Hgb Conc. 32.6 g/dL (33.0-37.0); Mean Corpuscular Hgb 30.3 pg (27.0-31.0); Mean Platelet Volume 10.1 fL (7.4-10.4); Nucleated Red Blood Cells % 0 %; Platelet Count 576 10^3/uL (130-400); Red Blood Cell Count 2.84 10^6/uL (4.20-5.40); Red Cell Dist. Width 13.5 % (11.5-14.5); White Blood Cell Count 14.9 10^3/uL (4.8-10.8)
[2024-04-12 06:05] LABS: ALT (SGPT) 163 U/L (0-35); AST (SGOT) 50 U/L (14-36); Albumin 2.6 g/dl (3.5-5.0); Alkaline Phosphatase 121 U/L (38-126); Blood Urea Nitrogen 13 mg/dl (7-17); Calcium 8.6 mg/dl (8.4-10.2); Carbon Dioxide 25 mmol/L (22-30); Chloride 99 mmol/L (98-107); Estimated Creatinine Clearance 69 ml/min; Glucose 101 mg/dl (70-99); Potassium 4.5 mmol/L (3.5-5.1); Sodium 133 mmol/L (135-145); Total Bilirubin 0.6 mg/dl (0.2-1.3); Total Protein 5.3 g/dl (6.3-8.2); eGFR > 60.00
[2024-04-12] MEDS: PROTONIX 40 MG PO ×2 (08:26→20:37)
[2024-04-12] MEDS: AUGMENTIN 875 MG/125 MG 1 TABLET PO ×2 (08:26→20:37)
--- NOTE | 2024-04-12 09:54 | W.PN.GS2 ---
Today's Communication / Plan
-
Liquid diet, Ensure.
OR canceled for today
Assessment / Plan
-
Assessment: 69 yo F who presented with a 10-day history of epigastric abdominal pain, melena POD#9 EGD, laparoscopic modified Chaim patch repair and drainage of intra-abdominal abscess, for a perforated gastric ulcer. OR cultures positive for
Streptococcus and Neisseria, path negative for atypia or H. pylori.
04/04 1 unit pRBC
04/05 UGI-negative for leak. NG tube removed and started on clears.
04/06 Advanced to FLD
04/07 Fevers: UA neg, CXR wnl, CT abd/pelvis:a persistent fluid collection underneath the left lobe of the liver adjacent to the lesser curvature of the stomach with the current surgical drain essentially going right into the middle of this bilobed
collection.
04/11 IR drain exchange
-- Resume full liquid diet, will add Ensure.
-- Would consider lap washout tomorrow if she does not continue to improve.
-- Abx: per ID. Plan for 4 weeks of Augmentin.
-- Pain control: Tylenol, Tramadol with Dilaudid IV prn breakthrough, no NSAIDs
-- Resume home dosage of celexa, lisinopril
-- Twice daily PPI
-- Lovenox for DVT ppx
Time Spent
Total Time Spent with Patient (in minutes): 20
Subjective Data
-
Date of Service: April 12, 2024
Interval Events:
Patient is status post successful drain exchange in IR yesterday with a 14 [place] pigtail. Slightly hypotensive overnight but asymptomatic and no fevers. Slept well. Pain Controlled. Denies Nausea/Vomiting, +bowel function. Tolerating diet.
Objective Data
-
Intake and Output
04/11/24 04/12/24 04/13/24
06:59 06:59 06:59
Intake Total 1200 / 1200 1020 / 1020
Output Total
Balance 1185 / 1185 985 / 985
Intake:
Oral fluids 1200 / 1200 520 / 520
IV fluids (Total) 500 / 500
Output:
Drain Output (Total)
Right Lower Abdomen
Other:
Number of approximated MODERATE 2 1
amounts of urine
Vital Signs
Temp Pulse Resp BP Pulse Ox
99.7 F 83 20 102/53 94
04/12/24 08:46 04/12/24 08:46 04/11/24 23:57 04/12/24 08:46 04/12/24 08:46
Lab Results
04/12/24 05:21
04/12/24 05:21
Calcium 8.6 mg/dl (8.4-10.2) 04/12/24 05:21
Phosphorus 4.4 mg/dl (2.5-4.5) 04/09/24 05:51
Magnesium 2.5 mg/dl (1.6-2.3) H 04/09/24 05:51
Total Bilirubin 0.6 mg/dl (0.2-1.3) 04/12/24 05:21
Direct Bilirubin 0.3 mg/dl (0.0-0.4) 04/10/24 04:38
AST 50 U/L (14-36) H 04/12/24 05:21
ALT 163 U/L (0-35) H 04/12/24 05:21
Alkaline Phosphatase 121 U/L (38-126) 04/12/24 05:21
Total Protein 5.3 g/dl (6.3-8.2) L 04/12/24 05:21
Albumin 2.6 g/dl (3.5-5.0) L 04/12/24 05:21
Physical Exam
-
GENERAL/NEURO: Awake, Alert, no distress
CHEST: Unlabored breathing on RA
ABDOMEN: Soft, Non-Tender, Non-Distended, incisions clean dry and intact. SHERIE with minimal serous output.
--- NOTE | 2024-04-12 10:26 | W.PN.ID1 ---
Date of Service
Date of Service: April 12, 2024
Today's Communication
Continue abx.
Assessment / Plan
Transaminitis
- improving
- TPN previously stopped
- Follow LFT's, WBC, temps.
Intraabdominal abscess s/p washout
- Perforated gastric ulcer s/p Chaim patch
Progression of thrombocytosis
- Neisseria ID'ed as 'saprophytic' (not N. gonorrhoeae�or�N. meningitidis).
- continue augmentin.
- follow clinically
����������������������������������������������������������
Chief Complaint
-: Fever and Other (abdominal abscess)
Subjective / Review of Systems
Review of Systems: No Fever and No Chills
Vital Signs / Physical Exam
Vital Signs
Vital Signs
Temp Pulse Resp BP Pulse Ox
99.7 F 83 20 102/53 94
04/12/24 08:46 04/12/24 08:46 04/11/24 23:57 04/12/24 08:46 04/12/24 08:46
Physical Exam
Constitutional: No Acute Distress, Comfortable and Chronically Ill
Cardiovascular: S1/S2; Negative S3/S4
Pulmonary: Clear; Negative Wheezes, Rales or Rhonchi
Extremities: Negative Edema, Cyanosis or Erythema
Neurological: Awake and Alert
Psychological: Calm
Objective Data
Lab Data
Lab Results
04/12/24 05:21
04/12/24 05:21
Estimated Creat Clear 69 ml/min 04/12/24 05:21
Lactic Acid 1.2 mmol/L (0.7-2.0) 04/02/24 11:20
Total Bilirubin 0.6 mg/dl (0.2-1.3) 04/12/24 05:21
GGT 80 U/L (12-43) H 04/10/24 04:38
AST 50 U/L (14-36) H 04/12/24 05:21
ALT 163 U/L (0-35) H 04/12/24 05:21
Alkaline Phosphatase 121 U/L (38-126) 04/12/24 05:21
Most recent labs reviewed.
Micro Results:
04/08/24 10:04 Blood Culture - Preliminary
Blood/Venous No Growth in 4 days- Final report to follow
04/11/24 15:25 Wound Culture - Preliminary
Abscess No growth
Gram Stain - Preliminary
04/08/24 12:28 Blood Culture - Preliminary
Blood/Venous No Growth in 72 hours- Final report to follow
04/02/24 11:27 Blood Culture - Final
Blood/Venous Peptostrep. asaccharolyticus
Gram Stain - Final
04/08/24 18:24 C. difficile GDH Antigen & Toxins - Final
Feces/Stool Negative for toxigenic C.difficile
04/02/24 18:17 Wound Culture - Final
Abscess Group F Streptococcus
Neisseria species
Gram Stain - Final
04/02/24 11:20 Blood Culture - Final
Blood/Venous No Growth - Final Report
04/02/24 18:17 Anaerobic Culture - Final
Abscess
04/02/24 19:42 Tissue Culture - Final
Abdomen Group F Streptococcus
Gram Stain - Final
--- NOTE | 2024-04-12 11:17 | W.PN.HOSP.TC ---
Today's Communication/Plan
-
Liquid diet
IV fluids
DC lisinopril
Continue with antibiotics
Monitor SHERIE drain output
Assessment / Plan
Assessment / Plan
Gen-AAOx3, NAD, obese
HEENT-NC, AT, anicteric, clear oral mm
Neck-supple
CV-reg, no M, +S1/S2
Lungs-clear B/L
Abd-soft, nondistended, mild tenderness, drain in place
Ext-no edema
Musculoskeletal-no cyanosis, clubbing
Skin-warm and dry
Neuro-grossly non-focal
Psych-calm, cooperative
Sepsis due to acute perforated gastric ulcer/intra-abdominal abscess - hemodynamically stable. Underwent washout of abdominal abscess 04/02.
Blood cultures positive for Group F Peptostrep species,. Fluid culture from the OR abdominal fluid positive for group F Streptococcus, Neisseria species. Neisseria species as send out.
Repeat CT abdomen pelvis 04/07 shows a second small fluid and air collection in the abdomen, as well as a fluid and air collection along the right lateral and inferior margin of the liver.
Mild leukocytosis and fever noted.
IV ertapenem per infectious disease switch to p.o. Augmentin +Cipro
Status post with drain exchange and manipulation status post 10 cc of purulent appearing fluid sent for microbiology..
If no improvement-plan for washout tentative in AM.
Diet for now monitor symptoms. Clinically seems to be improving
Started on IV fluids for now. Diet restarted.
Perforated gastric ulcer, subacute - Underwent laparoscopic modified Chaim patch repair, washout of intra-abdominal abscess, EGD on 04/02. Single contrast upper GI series performed on April 05 was normal with no extravasation.
H. pylori negative based on path report. Continue twice daily Protonix.
TPN discontinued on 04/09. Continue with full liquids post procedure. Advance per surgery.
General surgery Recs
Acute on chronic normocytic anemia -acute postop anemia likely due to operative blood loss, as well as gastric ulcer related GI bleed. Component of hemodilution from IV fluids possible. Hemoglobin stable. transfused 1 unit of blood on April 04.
Moving bowels.
Hyponatremia -resolved.
Elevated transaminases -likely reactive and due to abdominal process/sepsis/?TPN. Transaminases coming down. Bilirubin and alkaline phosphatase normal. Hold statin. Trend for now. Possibly due to TPN as improvement noted with discontinuation of
breath.
Essential hypertension-episode of hypotension after receiving dose overnight. Blood pressure overall seems well-controlled. Will DC lisinopril 10 mg for now, monitor off.
Hyperlipidemia -on simvastatin at home. Hold for elevated transaminases.
Obesity due to excess calories
DVT ppx-lovenox
Full code
Discussed with family member at bedside in details
Anticipated Discharge: > 48 hours
Subjective/Interval History
-
Date of Service: April 12, 2024
Denies any abdominal pain nausea vomiting
Denies any increased accretions from the drain
Overnight episode of hypotension which responded with IV fluids
Denies any lightheaded or dizziness
Objective Data
-
Labs:
Laboratory Results
04/12/24
05:21
WBC 14.9 H
Hgb 8.6 L
Hct 26.4 L
Plt Count 576 H
Sodium 133 L
Potassium 4.5
Chloride 99
Carbon Dioxide 25
BUN 13
Creatinine 0.7
Glucose 101 H
Calcium 8.6
Total Bilirubin 0.6
AST 50 H
ALT 163 H
Alkaline Phosphatase 121
Vital Signs:
Vital Signs
Temp Pulse Resp BP Pulse Ox
99.7 F 83 20 102/53 94
04/12/24 08:46 04/12/24 08:46 04/11/24 23:57 04/12/24 08:46 04/12/24 08:46
I&O
04/11/24 04/12/24 04/13/24
06:59 06:59 06:59
Intake Total 1200 / 1200 1020 / 1020
Output Total
Balance 1185 / 1185 985 / 985
--- NOTE | 2024-04-12 14:05 | CM ---
Reviewed the chart notes and spoke with the patient at the bedside. Patient had perc tube changed yesterday. Continues on full liquid diet. CM continues to be available to patient/family and is monitoring medical plan for needs at discharge.
Plan: Discharge plans will depend on the patient's progress.
[2024-04-12] MEDS: LOVENOX 40 MG SC (17:15)
[2024-04-12] MEDS: TYLENOL 1000 MG PO (17:53)
[2024-04-12] MEDS: ULTRAM 50 MG PO (20:53)
[2024-04-12] MEDS: CELEXA 20 MG PO (21:04)
[2024-04-13] VITALS (12 sets, daily range): BP systolic 80–134; BP diastolic 56–82; BMI 31.8
[2024-04-13 05:56] LABS: % Basophils 0.2 % (0-2); % Eosinophils 0.1 % (0-6); % Lymphocytes 9.7 % (20.5-51.1); % Monocytes 8.1 % (1.7-9.3); % Neutrophils 80.9 % (42.2-75.2); Absolute Immature Granulocytes 0.2 10^3/uL (0-0.05); Absolute Lymphocytes 1.5 10^3/uL (1.2-3.4); Absolute Monocytes 1.2 10^3/uL (0.1-0.6); Absolute Neutrophils 12.2 10^3/uL (1.4-6.5); Hematocrit 25.5 % (37.0-47.0); Hemoglobin 8.2 g/dL (12.0-16.0); Mean Corp Hgb Conc. 32.2 g/dL (33.0-37.0); Mean Corpuscular Volume 93.4 fL (81.0-99.0); Mean Platelet Volume 10.3 fL (7.4-10.4); Nucleated Red Blood Cells % 0 %; Platelet Count 519 10^3/uL (130-400); Red Blood Cell Count 2.73 10^6/uL (4.20-5.40); Red Cell Dist. Width 13.5 % (11.5-14.5); White Blood Cell Count 15.1 10^3/uL (4.8-10.8)
[2024-04-13 06:21] LABS: ALT (SGPT) 119 U/L (0-35); AST (SGOT) 41 U/L (14-36); Albumin 2.6 g/dl (3.5-5.0); Alkaline Phosphatase 111 U/L (38-126); Blood Urea Nitrogen 9 mg/dl (7-17); Calcium 8.4 mg/dl (8.4-10.2); Carbon Dioxide 24 mmol/L (22-30); Chloride 104 mmol/L (98-107); Estimated Creatinine Clearance 81 ml/min; Glucose 103 mg/dl (70-99); Potassium 4.4 mmol/L (3.5-5.1); Sodium 136 mmol/L (135-145); Total Bilirubin 0.6 mg/dl (0.2-1.3); Total Protein 5.2 g/dl (6.3-8.2); eGFR > 60.00
--- NOTE | 2024-04-13 08:53 | W.PN.GS2 ---
Today's Communication / Plan
-
OR today
Assessment / Plan
-
Assessment: 69 yo F who presented with a 10-day history of epigastric abdominal pain, melena POD#10 EGD, laparoscopic modified Chaim patch repair and drainage of intra-abdominal abscess, for a perforated gastric ulcer. OR cultures positive for
Streptococcus and Neisseria, path negative for atypia or H. pylori.
04/04 1 unit pRBC
04/05 UGI-negative for leak. NG tube removed and started on clears.
04/06 Advanced to FLD
04/07 Fevers: UA neg, CXR wnl, CT abd/pelvis:a persistent fluid collection underneath the left lobe of the liver adjacent to the lesser curvature of the stomach with the current surgical drain essentially going right into the middle of this bilobed
collection.
04/11 IR drain exchange
Fevers overnight with rising WBC
-- NPO for OR today for dx lap/washout
-- Abx: per ID
-- Pain control: Tylenol, Tramadol with Dilaudid IV prn breakthrough, no NSAIDs
-- Continue home celexa. Lisinopril on hold d/t low BP's
-- Twice daily PPI
-- Lovenox for DVT ppx
Subjective Data
-
Date of Service: April 13, 2024
Patient seen and examined at bedside with Dr. Beard. Denies n/v. Fever overnight. Denies significant discomfort.
Objective Data
-
Intake and Output
04/12/24 04/13/24 04/14/24
06:59 06:59 06:59
Intake Total 1020 / 1020 2099
Output Total 35 / 35
Balance 985 / 985 2099
Intake:
Oral fluids 520 / 520 900 / 900
IV fluids (Total) 500 / 500 1200 / 1200
Output:
Drain Output (Total) 35 / 35
Right Lower Abdomen 35 / 35
Other:
Number of approximated MODERATE 1 2
amounts of urine
Vital Signs
Temp Pulse Resp BP Pulse Ox
99.9 F 86 18 111/62 96
04/13/24 07:37 04/13/24 07:37 04/13/24 07:37 04/13/24 07:37 04/13/24 07:37
Lab Results
04/13/24 05:31
04/13/24 05:31
Calcium 8.4 mg/dl (8.4-10.2) 04/13/24 05:31
Phosphorus 4.4 mg/dl (2.5-4.5) 04/09/24 05:51
Magnesium 2.5 mg/dl (1.6-2.3) H 04/09/24 05:51
Total Bilirubin 0.6 mg/dl (0.2-1.3) 04/13/24 05:31
Direct Bilirubin 0.3 mg/dl (0.0-0.4) 04/10/24 04:38
AST 41 U/L (14-36) H 04/13/24 05:31
ALT 119 U/L (0-35) H 04/13/24 05:31
Alkaline Phosphatase 111 U/L (38-126) 04/13/24 05:31
Total Protein 5.2 g/dl (6.3-8.2) L 04/13/24 05:31
Albumin 2.6 g/dl (3.5-5.0) L 04/13/24 05:31
Physical Exam
-
GENERAL/NEURO: Awake, Alert, no distress
CHEST: Unlabored breathing on RA
ABDOMEN: Soft, Non-Tender, Non-Distended, incisions clean dry and intact. SHERIE with minimal serous output.
--- NOTE | 2024-04-13 09:12 | W.SUR.PREOP ---
Pre-Operative Surgical Note
-
I have examined this patient prior to the performance of the scheduled procedure.
The patient's condition is unchanged from the time of the current History and
Physical and the patient is able to undergo the scheduled procedure.
[2024-04-13] MEDS: NSS 1000 IV (09:19)
[2024-04-13] MEDS: AUGMENTIN 875 MG/125 MG 1 TABLET PO (09:21)
[2024-04-13] MEDS: PROTONIX 40 MG PO ×2 (09:21→20:40)
--- NOTE | 2024-04-13 11:31 | W.PN.HOSP.TC ---
Today's Communication/Plan
-
OR today
IVF continued
GS surgery
Assessment / Plan
Assessment / Plan
Gen-AAOx3, NAD, obese
HEENT-NC, AT, anicteric, clear oral mm
Neck-supple
CV-reg, no M, +S1/S2
Lungs-clear B/L
Abd-soft, nondistended, mild tenderness, drain in place
Ext-no edema
Musculoskeletal-no cyanosis, clubbing
Skin-warm and dry
Neuro-grossly non-focal
Psych-calm, cooperative
Sepsis due to acute perforated gastric ulcer/intra-abdominal abscess - hemodynamically stable. Underwent washout of abdominal abscess 04/02.
Blood cultures positive for Group F Peptostrep species,. Fluid culture from the OR abdominal fluid positive for group F Streptococcus, Neisseria species. Neisseria species as send out.
Repeat CT abdomen pelvis 04/07 shows a second small fluid and air collection in the abdomen, as well as a fluid and air collection along the right lateral and inferior margin of the liver.
Mild leukocytosis and fever noted.
IV ertapenem per infectious disease switch to p.o. Augmentin +Cipro
Status post with drain exchange and manipulation status post 10 cc of purulent appearing fluid sent for microbiology..
Spiked fever again and thus plan for diagnostic laprascopy/washout today
Perforated gastric ulcer, subacute - Underwent laparoscopic modified Chaim patch repair, washout of intra-abdominal abscess, EGD on 04/02. Single contrast upper GI series performed on April 05 was normal with no extravasation.
H. pylori negative based on path report. Continue twice daily Protonix.
TPN discontinued on 04/09. Diet discontinued for now. NPO
General surgery Recs
Acute on chronic normocytic anemia -acute postop anemia likely due to operative blood loss, as well as gastric ulcer related GI bleed. Component of hemodilution from IV fluids possible. Hemoglobin stable. transfused 1 unit of blood on April 04.
Moving bowels.
Hyponatremia -resolved.
Elevated transaminases -likely reactive and due to abdominal process/sepsis/?TPN. Transaminases coming down. Bilirubin and alkaline phosphatase normal. Hold statin. Trend for now. Possibly due to TPN as improvement noted with discontinuation of it
Essential hypertension-episode of hypotension after receiving dose of lisinopril. Blood pressure overall seems well-controlled. Will DC lisinopril 10 mg for now, monitor off.
Hyperlipidemia -on simvastatin at home. Hold for elevated transaminases.
Obesity due to excess calories
DVT ppx-lovenox
Full code
Anticipated Discharge: > 48 hours
Subjective/Interval History
-
Date of Service: April 13, 2024
Spiked high fever yesterday evening
not much SHERIE drain output
no abd pain
Objective Data
-
Labs:
Laboratory Results
04/13/24
05:31
WBC 15.1 H
Hgb 8.2 L
Hct 25.5 L
Plt Count 519 H
Sodium 136
Potassium 4.4
Chloride 104
Carbon Dioxide 24
BUN 9
Creatinine 0.6
Glucose 103 H
Calcium 8.4
Total Bilirubin 0.6
AST 41 H
ALT 119 H
Alkaline Phosphatase 111
Vital Signs:
Vital Signs
Temp Pulse Resp BP Pulse Ox
99.9 F 86 18 111/62 96
04/13/24 07:37 04/13/24 07:37 04/13/24 07:37 04/13/24 07:37 04/13/24 07:37
I&O
04/12/24 04/13/24 04/14/24
06:59 06:59 06:59
Intake Total 1020 / 1020 2099
Output Total 35 / 35
Balance 985 / 985 2099
Data Reviewed
-
Total Time Spent with Patient (in minutes): 55
--- NOTE | 2024-04-13 12:17 | CM ---
Reviewed the chart notes and spoke with the patient at the bedside. Patient anticipates going to OR today for washout. CM continues to be available to patient/family and is monitoring medical plan for needs at discharge.
Plan: Discharge plans will depend on the patient's progress.
--- NOTE | 2024-04-13 12:51 | W.IMMPOSTOP ---
Surgical Immed Post Op Note
-
Primary Surgeon: Wayne Beard MD
Assisting Surgeon: None
Pigment Pumper: JASON Heaton
Pre-op Diagnosis: Intra-abdominal abscess
Post-op Diagnosis: Same
Procedure Performed: Diagnostic laparoscopy, washout for intra-abdominal abscess.
Anesthesia Type: General
Specimen / Cultures: None
Estimated Blood Loss: 11 cc
Complications: None
Operative Findings: Bilobed abscess cavity identified on either side of the repair roughly the 15 cc of pus suctioned out. As expected some raw surface area oozing was noted. Hemostasis obtained with Gretchen Hemospray. Previous IR drain removed
and a fresh 21 [place] round Jose Angel drain was inserted into the abscess cavity under the left lobe of the liver and across the repair into the second collection bed. This was sutured to the skin with a 2-0 nylon suture. Her previous repair was
undisturbed. We did insufflate the stomach with and via an OG tube with no bubbling/leak noted.
POST OP PLAN:
Imaging: None
Labs: Routine AM
Diet: Okay for clears
Analgesia: Tylenol 650mg q6 Haley, Zuleyma 5mg q6 PRN, Dilaudid 0.5mg q2h PRN
Neuro/vascular checks: q4h
AC/AP: Hold Therapeutic AC, Ok for DVT PPx
Activity: Ad Louise
Wound/Incisions/Drains: Routine, SHERIE to bulb suction.
Abx: Continue antibiotics per ID
Dispo: RNF
--- NOTE | 2024-04-13 13:22 | PTOTSP ---
Pt went to OR today for procedure under general anesthesia. Will need new orders for PT and OT when stable to resume activity.
[2024-04-13] MEDS: DILAUDID 0.5 MG IV ×3 (13:53→20:40)
--- NOTE | 2024-04-13 15:38 | W.PN.ID1 ---
Date of Service
Date of Service: April 13, 2024
Today's Communication
Continue antibiotics; transition Augmentin to Unasyn.
Assessment / Plan
Transaminitis
- improving
- TPN previously stopped
- Follow LFT's, WBC, temps.
Intraabdominal abscess s/p washout
- Perforated gastric ulcer s/p Chaim patch
- s/p return to OR for drainage of additional collection
Progression of thrombocytosis
- Neisseria ID'ed as 'saprophytic' (not N. gonorrhoeae�or�N. meningitidis).
- Transition to unasyn for now.
- follow clinically
����������������������������������������������������������
Chief Complaint
-: Fever and Other (abdominal abscess)
Subjective / Review of Systems
Patient seen and examined. Status post OR and drainage of additional abscess.
Vital Signs / Physical Exam
Vital Signs
Vital Signs
Temp Pulse Resp BP Pulse Ox
98.5 F 83 20 122/65 96
04/13/24 15:23 04/13/24 15:23 04/13/24 15:23 04/13/24 15:23 04/13/24 15:23
Physical Exam
Constitutional: Non-toxic
Head: Normocephalic
Cardiovascular: S1/S2; Negative S3/S4
Gastrointestinal: Soft, Tender, Non Distended and Other (SHERIE drain in place)
Genito-Urinary: Negative Hyde
Extremities: Negative Edema, Cyanosis or Erythema
Neurological: Awake and Alert
Psychological: Calm
Objective Data
Lab Data
Lab Results
04/13/24 05:31
04/13/24 05:31
Estimated Creat Clear 81 ml/min 04/13/24 05:31
Lactic Acid 1.2 mmol/L (0.7-2.0) 04/02/24 11:20
Total Bilirubin 0.6 mg/dl (0.2-1.3) 04/13/24 05:31
GGT 80 U/L (12-43) H 04/10/24 04:38
AST 41 U/L (14-36) H 04/13/24 05:31
ALT 119 U/L (0-35) H 04/13/24 05:31
Alkaline Phosphatase 111 U/L (38-126) 04/13/24 05:31
Most recent labs reviewed.
Micro Results:
04/08/24 12:28 Blood Culture - Final
Blood/Venous No Growth - Final Report
04/08/24 10:04 Blood Culture - Final
Blood/Venous No Growth - Final Report
04/11/24 15:25 Wound Culture - Preliminary
Abscess Gram Stain - Preliminary
04/02/24 11:27 Blood Culture - Final
Blood/Venous Peptostrep. asaccharolyticus
Gram Stain - Final
04/08/24 18:24 C. difficile GDH Antigen & Toxins - Final
Feces/Stool Negative for toxigenic C.difficile
04/02/24 18:17 Wound Culture - Final
Abscess Group F Streptococcus
Neisseria species
Gram Stain - Final
04/02/24 11:20 Blood Culture - Final
Blood/Venous No Growth - Final Report
04/02/24 18:17 Anaerobic Culture - Final
Abscess
04/02/24 19:42 Tissue Culture - Final
Abdomen Group F Streptococcus
Gram Stain - Final
[2024-04-13] MEDS: UNASYN IV ×2 (16:15→21:32)
[2024-04-13] MEDS: MYCAMINE 105 MG IV (16:15)
[2024-04-13] MEDS: LOVENOX 40 MG SC (18:39)
[2024-04-13] MEDS: CELEXA 20 MG PO (21:31)
[2024-04-14] MEDS: NSS 1000 IV (00:54)
[2024-04-14 03:01] VITALS: BP 114/63
[2024-04-14 03:06] VITALS: BMI 32.3
[2024-04-14] MEDS: UNASYN IV ×4 (04:09→22:33)
[2024-04-14 04:46] LABS: % Basophils 0.1 % (0-2); % Lymphocytes 7.4 % (20.5-51.1); % Monocytes 6.7 % (1.7-9.3); % Neutrophils 84.8 % (42.2-75.2); Absolute Immature Granulocytes 0.2 10^3/uL (0-0.05); Absolute Lymphocytes 1.1 10^3/uL (1.2-3.4); Absolute Neutrophils 12.9 10^3/uL (1.4-6.5); Mean Corp Hgb Conc. 33.3 g/dL (33.0-37.0); Mean Corpuscular Hgb 30.1 pg (27.0-31.0); Mean Corpuscular Volume 90.2 fL (81.0-99.0); Mean Platelet Volume 10.4 fL (7.4-10.4); Nucleated Red Blood Cells % 0 %; Platelet Count 531 10^3/uL (130-400); Red Blood Cell Count 2.66 10^6/uL (4.20-5.40); Red Cell Dist. Width 13.5 % (11.5-14.5); White Blood Cell Count 15.2 10^3/uL (4.8-10.8)
[2024-04-14 05:12] LABS: ALT (SGPT) 81 U/L (0-35); AST (SGOT) 30 U/L (14-36); Albumin 2.4 g/dl (3.5-5.0); Alkaline Phosphatase 97 U/L (38-126); Blood Urea Nitrogen 8 mg/dl (7-17); Calcium 8.4 mg/dl (8.4-10.2); Carbon Dioxide 24 mmol/L (22-30); Chloride 104 mmol/L (98-107); Estimated Creatinine Clearance 82 ml/min; Glucose 118 mg/dl (70-99); Potassium 4.6 mmol/L (3.5-5.1); Sodium 134 mmol/L (135-145); Total Bilirubin 0.6 mg/dl (0.2-1.3); Total Protein 4.9 g/dl (6.3-8.2); eGFR > 60.00
[2024-04-14 07:20] VITALS: BP 114/58
[2024-04-14] MEDS: PROTONIX 40 MG PO ×2 (07:42→20:47)
[2024-04-14] MEDS: DILAUDID 0.5 MG IV ×3 (07:42→22:41)
--- NOTE | 2024-04-14 07:45 | PTOTSP ---
Pt went to OR 04/13 for procedure under general anesthesia. Will need new orders for PT and OT when stable to resume activity.
--- NOTE | 2024-04-14 10:20 | W.PN.HOSP.TC ---
Today's Communication/Plan
-
IV antibiotics and antifungal agents
Pain control
Diet per surgery
Out of bed
Monitor SHERIE drain output
Assessment / Plan
Assessment / Plan
Gen-AAOx3, NAD, obese
HEENT-NC, AT, anicteric, clear oral mm
Neck-supple
CV-reg, no M, +S1/S2
Lungs-clear B/L
Abd-soft, nondistended, mild tenderness, drain in place with output noted
Ext-no edema
Musculoskeletal-no cyanosis, clubbing
Skin-warm and dry
Neuro-grossly non-focal
Psych-calm, cooperative
Sepsis due to acute perforated gastric ulcer/intra-abdominal abscess - hemodynamically stable. Underwent washout of abdominal abscess 04/02.
Blood cultures positive for Group F Peptostrep species,. Fluid culture from the OR abdominal fluid positive for group F Streptococcus, Neisseria species. Neisseria species as send out.
Repeat CT abdomen pelvis 04/07 shows a second small fluid and air collection in the abdomen, as well as a fluid and air collection along the right lateral and inferior margin of the liver.
Mild leukocytosis and fever noted.
IV ertapenem per infectious disease switch to p.o. Augmentin +Cipro and now on IV Unasyn. Micafungin also added.
Status post with drain exchange and manipulation status post 10 cc of purulent appearing fluid sent for microbiology..
Status post diagnostic laparoscopy with washout of intra-abdominal abscess and new SHERIE drain placement on 04/13
Currently on clear liquids and tolerating it.
Perforated gastric ulcer, subacute - Underwent laparoscopic modified Chaim patch repair, washout of intra-abdominal abscess, EGD on 04/02. Single contrast upper GI series performed on April 05 was normal with no extravasation.
H. pylori negative based on path report. Continue twice daily Protonix.
TPN discontinued on 04/09.
See additional plan as above.
General surgery Recs
Acute on chronic normocytic anemia -acute postop anemia likely due to operative blood loss, as well as gastric ulcer related GI bleed. Component of hemodilution from IV fluids possible. Hemoglobin stable. transfused 1 unit of blood on April 04.
Moving bowels.
Hyponatremia -resolved.
Elevated transaminases -likely reactive and due to abdominal process/sepsis/?TPN. Transaminases continue to improve and almost at baseline.. Bilirubin and alkaline phosphatase normal. Hold statin. Trend for now. Possibly due to TPN as improvement
noted with discontinuation of it
Essential hypertension-episode of hypotension after receiving dose of lisinopril. Blood pressure overall seems well-controlled. Will DC lisinopril 10 mg for now, monitor off.
Hyperlipidemia -on simvastatin at home. Hold for elevated transaminases.
Obesity due to excess calories
DVT ppx-lovenox
Full code
Anticipated Discharge: > 48 hours
Subjective/Interval History
-
Date of Service: April 14, 2024
states of abd pain
SHERIE drain with output
Objective Data
-
Labs:
Laboratory Results
04/14/24
04:18
WBC 15.2 H
Hgb 8.0 L
Hct 24.0 L
Plt Count 531 H
Sodium 134 L
Potassium 4.6
Chloride 104
Carbon Dioxide 24
BUN 8
Creatinine 0.5 L
Glucose 118 H
Calcium 8.4
Total Bilirubin 0.6
AST 30
ALT 81 H
Alkaline Phosphatase 97
Vital Signs:
Vital Signs
Temp Pulse Resp BP Pulse Ox
98.6 F 69 16 114/58 95
04/14/24 07:20 04/14/24 07:20 04/14/24 07:20 04/14/24 07:20 04/14/24 07:20
I&O
04/13/24 04/14/24 04/15/24
06:59 06:59 06:59
Intake Total 2099
Output Total 335 / 335
Balance 2099
Data Reviewed
-
Total Time Spent with Patient (in minutes): 56
[2024-04-14] MEDS: NSS IV (10:52)
[2024-04-14] MEDS: ULTRAM 50 MG PO ×2 (10:55→20:46)
[2024-04-14 11:05] VITALS: BP 123/63
--- NOTE | 2024-04-14 14:55 | W.PN.GS2 ---
Today's Communication / Plan
-
Trial FLD
Assessment / Plan
-
Assessment: 69 yo F who presented with a 10-day history of epigastric abdominal pain, melena POD#10 EGD, laparoscopic modified Chaim patch repair and drainage of intra-abdominal abscess, for a perforated gastric ulcer. OR cultures positive for
Streptococcus and Neisseria, path negative for atypia or H. pylori.
04/04 1 unit pRBC
04/05 UGI-negative for leak. NG tube removed and started on clears.
04/06 Advanced to FLD
04/07 Fevers: UA neg, CXR wnl, CT abd/pelvis:a persistent fluid collection underneath the left lobe of the liver adjacent to the lesser curvature of the stomach with the current surgical drain essentially going right into the middle of this bilobed
collection.
04/11 IR drain exchange
POD1 s/p RTOR lap drainage of intra-ab abscess
-- OK for fulls, would not go beyond until improved bowel function.
-- Abx: per ID
-- Pain control: Tylenol, Tramadol with Dilaudid IV prn breakthrough, no NSAIDs
-- Continue home celexa. Lisinopril on hold d/t low BP's
-- Twice daily PPI
-- Lovenox for DVT ppx
Subjective Data
-
Date of Service: April 14, 2024
AFVSS, feeling slightly better, denies flatus/BM, denies n/v, pain controlled, would like to adv diet
Objective Data
-
Intake and Output
04/13/24 04/14/24 04/15/24
06:59 06:59 06:59
Intake Total 2099 2150 / 215 600 / 600
Output Total 335 / 335
Balance 2099 1815 / 1815 600 / 600
Intake:
Oral fluids 900 / 900 100 / 100
IV fluids (Total) 1200 / 1200 1850 / 1850 500 / 500
Normosal 100 / 100
IV piggybacks 200 / 200 100 / 100
Output:
Drain Output (Total) 335 / 335
Right Lower Abdomen 335 / 335
Other:
Number of approximated MODERATE 2
amounts of urine
Number of approximated LARGE 2
amounts of urine
How many times incontinent 3
MODERATE amount urine
Vital Signs
Temp Pulse Resp BP Pulse Ox
98.9 F 68 18 123/63 95
04/14/24 11:05 04/14/24 11:05 04/14/24 11:05 04/14/24 11:05 04/14/24 11:05
Lab Results
04/14/24 04:18
04/14/24 04:18
Calcium 8.4 mg/dl (8.4-10.2) 04/14/24 04:18
Phosphorus 4.4 mg/dl (2.5-4.5) 04/09/24 05:51
Magnesium 2.5 mg/dl (1.6-2.3) H 04/09/24 05:51
Total Bilirubin 0.6 mg/dl (0.2-1.3) 04/14/24 04:18
Direct Bilirubin 0.3 mg/dl (0.0-0.4) 04/10/24 04:38
AST 30 U/L (14-36) 04/14/24 04:18
ALT 81 U/L (0-35) H 04/14/24 04:18
Alkaline Phosphatase 97 U/L (38-126) 04/14/24 04:18
Total Protein 4.9 g/dl (6.3-8.2) L 04/14/24 04:18
Albumin 2.4 g/dl (3.5-5.0) L 04/14/24 04:18
Physical Exam
-
Gen: NAD
Abd: soft, approp ttp, incisions cdi
[2024-04-14 15:10] VITALS: BP 95/59
--- NOTE | 2024-04-14 16:16 | W.PN.ID1 ---
Date of Service
Date of Service: April 14, 2024
Today's Communication
Continue Unasyn/micafungin
Assessment / Plan
Intraabdominal abscess s/p washout
- Perforated gastric ulcer s/p Chaim patch
- s/p return to OR for drainage of additional collection 04/13
- Neisseria ID'ed as 'saprophytic' (not N. gonorrhoeae�or�N. meningitidis).
- Follow 04/13 OR cx
- Continue unasyn and micafungin (d2)
- fever resolved
- follow leukocytosis
Progression of thrombocytosis
Transaminitis
- improving
- TPN previously stopped
- Follow LFT's,
����������������������������������������������������������
Chief Complaint
-: Fever and Other (abdominal abscess)
Subjective / Review of Systems
Feels weak again after OR.
Vital Signs / Physical Exam
Vital Signs
Vital Signs
Temp Pulse Resp BP Pulse Ox
98.6 F 70 18 95/59 95
04/14/24 15:10 04/14/24 15:10 04/14/24 15:10 04/14/24 15:10 04/14/24 15:10
Physical Exam
Constitutional: No Acute Distress
Gastrointestinal: Soft, Non Tender and Other (SHERIE drain cloudy light brown fluid)
Objective Data
Lab Data
Lab Results
04/14/24 04:18
04/14/24 04:18
Estimated Creat Clear 82 ml/min 04/14/24 04:18
Lactic Acid 1.2 mmol/L (0.7-2.0) 04/02/24 11:20
Total Bilirubin 0.6 mg/dl (0.2-1.3) 04/14/24 04:18
GGT 80 U/L (12-43) H 04/10/24 04:38
AST 30 U/L (14-36) 04/14/24 04:18
ALT 81 U/L (0-35) H 04/14/24 04:18
Alkaline Phosphatase 97 U/L (38-126) 04/14/24 04:18
Most recent labs reviewed.
Micro Results:
04/14/24 11:12 Wound Culture - Pending
Abscess Gram Stain - Preliminary
04/14/24 11:11 Fungal Culture - Preliminary
Abdomen Culture in progress.
Positive cultures are reported as soon as detected.
Final report to follow in four to five weeks.
04/11/24 15:25 Wound Culture - Final
Abscess Gram Stain - Preliminary
04/08/24 12:28 Blood Culture - Final
Blood/Venous No Growth - Final Report
04/08/24 10:04 Blood Culture - Final
Blood/Venous No Growth - Final Report
04/02/24 11:27 Blood Culture - Final
Blood/Venous Peptostrep. asaccharolyticus
Gram Stain - Final
04/08/24 18:24 C. difficile GDH Antigen & Toxins - Final
Feces/Stool Negative for toxigenic C.difficile
04/02/24 18:17 Wound Culture - Final
Abscess Group F Streptococcus
Neisseria species
Gram Stain - Final
04/02/24 11:20 Blood Culture - Final
Blood/Venous No Growth - Final Report
04/02/24 18:17 Anaerobic Culture - Final
Abscess
04/02/24 19:42 Tissue Culture - Final
Abdomen Group F Streptococcus
Gram Stain - Final
[2024-04-14] MEDS: MYCAMINE 105 MG IV (17:17)
[2024-04-14] MEDS: LOVENOX 40 MG SC (17:33)
[2024-04-14] MEDS: CELEXA 20 MG PO (20:57)
[2024-04-14 23:41] VITALS: BP 129/70
[2024-04-15] MEDS: UNASYN IV ×4 (04:14→21:57)
[2024-04-15 04:44] LABS: % Basophils 0.3 % (0-2); % Eosinophils 0.4 % (0-6); % Immature Granulocytes 0.8 % (0-0.5); % Lymphocytes 23.1 % (20.5-51.1); % Monocytes 7.8 % (1.7-9.3); % Neutrophils 67.6 % (42.2-75.2); Absolute Immature Granulocytes 0.1 10^3/uL (0-0.05); Absolute Lymphocytes 2.3 10^3/uL (1.2-3.4); Absolute Monocytes 0.8 10^3/uL (0.1-0.6); Absolute Neutrophils 6.8 10^3/uL (1.4-6.5); Hematocrit 23.5 % (37.0-47.0); Hemoglobin 7.8 g/dL (12.0-16.0); Mean Corp Hgb Conc. 33.2 g/dL (33.0-37.0); Mean Corpuscular Hgb 29.9 pg (27.0-31.0); Mean Platelet Volume 10.3 fL (7.4-10.4); Nucleated Red Blood Cells % 0 %; Platelet Count 536 10^3/uL (130-400); Red Blood Cell Count 2.61 10^6/uL (4.20-5.40); Red Cell Dist. Width 13.6 % (11.5-14.5); White Blood Cell Count 10.1 10^3/uL (4.8-10.8)
[2024-04-15 05:07] LABS: ALT (SGPT) 132 U/L (0-35); AST (SGOT) 83 U/L (14-36); Albumin 2.3 g/dl (3.5-5.0); Alkaline Phosphatase 92 U/L (38-126); Blood Urea Nitrogen 8 mg/dl (7-17); Calcium 8.4 mg/dl (8.4-10.2); Carbon Dioxide 29 mmol/L (22-30); Chloride 102 mmol/L (98-107); Estimated Creatinine Clearance 82 ml/min; Glucose 89 mg/dl (70-99); Potassium 4.3 mmol/L (3.5-5.1); Sodium 135 mmol/L (135-145); Total Bilirubin 0.3 mg/dl (0.2-1.3); eGFR > 60.00
[2024-04-15 06:00] VITALS: BMI 32.6
[2024-04-15 07:05] VITALS: BP 118/69
--- NOTE | 2024-04-15 07:55 | PTOTSP ---
Pt went to OR 04/13 for procedure under general anesthesia. Will need new orders for PT and OT when stable to resume activity.
[2024-04-15] MEDS: ULTRAM 50 MG PO ×2 (08:33→17:02)
[2024-04-15] MEDS: PROTONIX 40 MG PO ×2 (08:33→20:13)
--- NOTE | 2024-04-15 10:44 | W.PN.HOSP.TC ---
Today's Communication/Plan
-
Trend h/h
IV abx/anti-fungal
monitor diet tolerance
slow advancement
monitor SHERIE drain output
Assessment / Plan
Assessment / Plan
Gen-AAOx3, NAD, obese
HEENT-NC, AT, anicteric, clear oral mm
Neck-supple
CV-reg, no M, +S1/S2
Lungs-clear B/L
Abd-soft, nondistended, mild tenderness, drain in place with output noted
Ext-no edema
Musculoskeletal-no cyanosis, clubbing
Skin-warm and dry
Neuro-grossly non-focal
Psych-calm, cooperative
Sepsis due to acute perforated gastric ulcer/intra-abdominal abscess - hemodynamically stable. Underwent washout of abdominal abscess 04/02.
Blood cultures positive for Group F Peptostrep species,. Fluid culture from the OR abdominal fluid positive for group F Streptococcus, Neisseria species. Neisseria species as send out.
Repeat CT abdomen pelvis 04/07 shows a second small fluid and air collection in the abdomen, as well as a fluid and air collection along the right lateral and inferior margin of the liver.
Mild leukocytosis and fever noted.
IV ertapenem per infectious disease switch to p.o. Augmentin +Cipro and now on IV Unasyn. Micafungin also added.
Status post with drain exchange and manipulation status post 10 cc of purulent appearing fluid sent for microbiology..
Status post diagnostic laparoscopy with washout of intra-abdominal abscess and new SHERIE drain placement on 04/13
Currently on Fulls. Plan to slowly advance.
Leukocytosis resolved.
Perforated gastric ulcer, subacute - Underwent laparoscopic modified Chaim patch repair, washout of intra-abdominal abscess, EGD on 04/02. Single contrast upper GI series performed on April 05 was normal with no extravasation.
H. pylori negative based on path report. Continue twice daily Protonix.
TPN discontinued on 04/09.
See additional plan as above.
General surgery Recs
Acute on chronic normocytic anemia -acute postop anemia likely due to operative blood loss, as well as gastric ulcer related GI bleed. Component of hemodilution from IV fluids possible. Hemoglobin stable. transfused 1 unit of blood on April 04.
Moving bowels. Hgb 7.8. Trend for now. May require additional unit.
Hyponatremia -resolved.
Elevated transaminases -likely reactive and due to abdominal process/sepsis/?TPN. Transaminases continue to improve. Bilirubin and alkaline phosphatase normal. Hold statin. Trend for now. Possibly due to TPN as improvement noted with
discontinuation of it
Essential hypertension-episode of hypotension after receiving dose of lisinopril. Blood pressure overall seems well-controlled. Will DC lisinopril 10 mg for now, monitor off.
Hyperlipidemia -on simvastatin at home. Hold for elevated transaminases.
Obesity due to excess calories
DVT ppx-lovenox
Full code
Anticipated Discharge: > 48 hours
Subjective/Interval History
-
Date of Service: April 15, 2024
tolerating diet so far
remains with SHERIE drain output
had bm earlier today
Objective Data
-
Labs:
Laboratory Results
04/15/24
04:13
WBC 10.1
Hgb 7.8 L
Hct 23.5 L
Plt Count 536 H
Sodium 135
Potassium 4.3
Chloride 102
Carbon Dioxide 29
BUN 8
Creatinine 0.5 L
Glucose 89
Calcium 8.4
Total Bilirubin 0.3
AST 83 H
ALT 132 H
Alkaline Phosphatase 92
Vital Signs:
Vital Signs
Temp Pulse Resp BP Pulse Ox
98.9 F 81 18 118/69 91
04/15/24 07:05 04/15/24 07:05 04/15/24 07:05 04/15/24 07:05 04/15/24 07:05
I&O
04/14/24 04/15/24 04/16/24
06:59 06:59 06:59
Intake Total 2150 / 2150 2700 / 2700
Output Total 335 / 335 270 / 270
Balance 1815 / 1815 2430 / 2430
Data Reviewed
-
Total Time Spent with Patient (in minutes): 55
--- NOTE | 2024-04-15 11:58 | W.PN.ID1 ---
Date of Service
Date of Service: April 15, 2024
Today's Communication
Continue Unasyn and micafungin
Assessment / Plan
Intraabdominal abscess s/p washout
- Perforated gastric ulcer s/p Chaim patch
- Neisseria ID'ed as 'saprophytic' (not N. gonorrhoeae�or�N. meningitidis).
- s/p return to OR for drainage of additional collection 04/13
- 04/13 OR gram stain GPC, GNR, cx pending
- Continue unasyn and micafungin (d3)
- fever and leukocytosis resolved
thrombocytosis
Transaminitis
- improving
- TPN previously stopped
- Follow LFT's,
����������������������������������������������������������
Chief Complaint
-: Fever and Other (abdominal abscess)
Subjective / Review of Systems
No new complaints.
Vital Signs / Physical Exam
Vital Signs
Vital Signs
Temp Pulse Resp BP Pulse Ox
98.9 F 81 18 118/69 96
04/15/24 07:05 04/15/24 07:05 04/15/24 07:05 04/15/24 07:05 04/15/24 11:17
Physical Exam
Constitutional: No Acute Distress
Gastrointestinal: Soft, Non Tender and Other (SHERIE drain with purulent light brown output)
Neurological: AO x 3
Objective Data
Lab Data
Lab Results
04/15/24 04:13
04/15/24 04:13
Estimated Creat Clear 82 ml/min 04/15/24 04:13
Lactic Acid 1.2 mmol/L (0.7-2.0) 04/02/24 11:20
Total Bilirubin 0.3 mg/dl (0.2-1.3) 04/15/24 04:13
GGT 80 U/L (12-43) H 04/10/24 04:38
AST 83 U/L (14-36) H 04/15/24 04:13
ALT 132 U/L (0-35) H 04/15/24 04:13
Alkaline Phosphatase 92 U/L (38-126) 04/15/24 04:13
Most recent labs reviewed.
Micro Results:
04/14/24 11:12 Wound Culture - Preliminary
Abscess Gram Stain - Preliminary
04/14/24 11:11 Fungal Culture - Preliminary
Abdomen Culture in progress.
Positive cultures are reported as soon as detected.
Final report to follow in four to five weeks.
04/11/24 15:25 Wound Culture - Final
Abscess Gram Stain - Preliminary
04/08/24 12:28 Blood Culture - Final
Blood/Venous No Growth - Final Report
04/08/24 10:04 Blood Culture - Final
Blood/Venous No Growth - Final Report
04/02/24 11:27 Blood Culture - Final
Blood/Venous Peptostrep. asaccharolyticus
Gram Stain - Final
04/08/24 18:24 C. difficile GDH Antigen & Toxins - Final
Feces/Stool Negative for toxigenic C.difficile
04/02/24 18:17 Wound Culture - Final
Abscess Group F Streptococcus
Neisseria species
Gram Stain - Final
04/02/24 11:20 Blood Culture - Final
Blood/Venous No Growth - Final Report
04/02/24 18:17 Anaerobic Culture - Final
Abscess
04/02/24 19:42 Tissue Culture - Final
Abdomen Group F Streptococcus
Gram Stain - Final
[2024-04-15 12:34] VITALS: BP 105/58; PULSE 80
--- NOTE | 2024-04-15 12:45 | W.PN.GS2 ---
Today's Communication / Plan
-
Continue ABX and SHERIE
Assessment / Plan
-
Assessment: 69 yo F who presented with a 10-day history of epigastric abdominal pain, melena POD#11 EGD, laparoscopic modified Chaim patch repair and drainage of intra-abdominal abscess, for a perforated gastric ulcer. OR cultures positive for
Streptococcus and Neisseria, path negative for atypia or H. pylori.
04/04 1 unit pRBC
04/05 UGI-negative for leak. NG tube removed and started on clears.
04/06 Advanced to FLD
04/07 Fevers: UA neg, CXR wnl, CT abd/pelvis:a persistent fluid collection underneath the left lobe of the liver adjacent to the lesser curvature of the stomach with the current surgical drain essentially going right into the middle of this bilobed
collection.
04/11 IR drain exchange
POD 2 s/p RTOR lap drainage of intra-ab abscess. SHERIE in place with purulent drainage
-- Continue fulls
-- Abx: per ID
-- Pain control: Tylenol, Tramadol with Dilaudid IV prn breakthrough, no NSAIDs
-- PO meds
-- Twice daily PPI
-- C/W SHERIE drain. Cultures from OR pending
-- Lovenox for DVT ppx
Subjective Data
-
Date of Service: April 15, 2024
Patient seen and examined at bedside. Denies n/v. Tolerating diet. Pain improving. Passing flatus and some stool.
Objective Data
-
Intake and Output
04/14/24 04/15/24 04/16/24
06:59 06:59 06:59
Intake Total 2150 / 2150 2700 / 2700
Output Total 335 / 335 270 / 270
Balance 1815 / 1815 2430 / 2430
Intake:
Oral fluids 100 / 100 1860 / 1860
IV fluids (Total) 1850 / 1850 500 / 500
Normosal 100 / 100
IV piggybacks 200 / 200 340 / 340
Output:
Drain Output (Total) 335 / 335 270 / 270
Right Lower Abdomen 335 / 335 270 / 270
Other:
Number of approximated MODERATE 3
amounts of urine
Number of approximated LARGE 2
amounts of urine
How many times incontinent 3
MODERATE amount urine
Vital Signs
Temp Pulse Resp BP Pulse Ox
98.9 F 81 18 118/69 96
04/15/24 07:05 04/15/24 07:05 04/15/24 07:05 04/15/24 07:05 04/15/24 11:17
Lab Results
04/15/24 04:13
04/15/24 04:13
Calcium 8.4 mg/dl (8.4-10.2) 04/15/24 04:13
Phosphorus 4.4 mg/dl (2.5-4.5) 04/09/24 05:51
Magnesium 2.5 mg/dl (1.6-2.3) H 04/09/24 05:51
Total Bilirubin 0.3 mg/dl (0.2-1.3) 04/15/24 04:13
Direct Bilirubin 0.3 mg/dl (0.0-0.4) 04/10/24 04:38
AST 83 U/L (14-36) H 04/15/24 04:13
ALT 132 U/L (0-35) H 04/15/24 04:13
Alkaline Phosphatase 92 U/L (38-126) 04/15/24 04:13
Total Protein 5.0 g/dl (6.3-8.2) L 04/15/24 04:13
Albumin 2.3 g/dl (3.5-5.0) L 04/15/24 04:13
Physical Exam
-
Gen: NAD
Abd: soft, approp ttp, incisions cdi
SHERIE with thick, uribe drainage
[2024-04-15] MEDS: DILAUDID 0.5 MG IV (12:51)
[2024-04-15] MEDS: TYLENOL 1000 MG PO ×2 (13:00→20:23)
[2024-04-15 15:00] VITALS: BP 134/74
[2024-04-15] MEDS: MYCAMINE 105 MG IV (17:00)
[2024-04-15] MEDS: LOVENOX 40 MG SC (17:00)
--- NOTE | 2024-04-15 17:57 | PTCARENOTE ---
Pt feels better today. she took a shower, walked the hallways x1 , drinking Ensure eating CLD, smiling today. Had small soft loose BM.
[2024-04-15] MEDS: CELEXA 20 MG PO (20:22)
[2024-04-15 23:20] VITALS: BP 123/65
[2024-04-16] MEDS: UNASYN IV ×4 (03:53→21:02)
[2024-04-16 05:24] LABS: % Basophils 0.3 % (0-2); % Immature Granulocytes 0.8 % (0-0.5); % Lymphocytes 17.1 % (20.5-51.1); % Neutrophils 73.8 % (42.2-75.2); Absolute Eosinophils 0.1 10^3/uL (0-0.7); Absolute Immature Granulocytes 0.1 10^3/uL (0-0.05); Absolute Lymphocytes 1.7 10^3/uL (1.2-3.4); Absolute Monocytes 0.7 10^3/uL (0.1-0.6); Absolute Neutrophils 7.5 10^3/uL (1.4-6.5); Hematocrit 25.7 % (37.0-47.0); Hemoglobin 8.3 g/dL (12.0-16.0); Mean Corp Hgb Conc. 32.3 g/dL (33.0-37.0); Mean Corpuscular Hgb 29.6 pg (27.0-31.0); Mean Corpuscular Volume 91.8 fL (81.0-99.0); Mean Platelet Volume 10.5 fL (7.4-10.4); Nucleated Red Blood Cells % 0 %; Platelet Count 587 10^3/uL (130-400); Red Cell Dist. Width 13.6 % (11.5-14.5); White Blood Cell Count 10.2 10^3/uL (4.8-10.8)
[2024-04-16 05:52] VITALS: BMI 32.7
[2024-04-16 05:56] LABS: ALT (SGPT) 106 U/L (0-35); AST (SGOT) 55 U/L (14-36); Albumin 2.5 g/dl (3.5-5.0); Alkaline Phosphatase 100 U/L (38-126); Blood Urea Nitrogen 7 mg/dl (7-17); Calcium 8.7 mg/dl (8.4-10.2); Carbon Dioxide 29 mmol/L (22-30); Chloride 102 mmol/L (98-107); Estimated Creatinine Clearance 83 ml/min; Glucose 88 mg/dl (70-99); Magnesium 2.1 mg/dl (1.6-2.3); Phosphorus 4.1 mg/dl (2.5-4.5); Potassium 4.4 mmol/L (3.5-5.1); Sodium 137 mmol/L (135-145); Total Bilirubin 0.5 mg/dl (0.2-1.3); Total Protein 5.3 g/dl (6.3-8.2); eGFR > 60.00
[2024-04-16 07:15] VITALS: BP 124/77
[2024-04-16] MEDS: PROTONIX 40 MG PO ×2 (07:47→20:09)
--- NOTE | 2024-04-16 09:28 | W.PN.GS2 ---
Addendum entered and electronically signed by Wayne Beard MD 04/18/24 17:30:
Her recurrent leak is unexpected but not a complication of her initial surgery or her takeback.
Original Note:
Today's Communication / Plan
-
Concern for redevelopment of a gastric leak, upper GI today.
N.p.o., holding off on TPN for now.
Assessment / Plan
-
Assessment: 69 yo F who presented with a 10-day history of epigastric abdominal pain, melena POD#12 EGD, laparoscopic modified Chaim patch repair and drainage of intra-abdominal abscess, for a perforated gastric ulcer. OR cultures positive for
Streptococcus and Neisseria, path negative for atypia or H. pylori.
04/04 1 unit pRBC
04/05 UGI-negative for leak. NG tube removed and started on clears.
04/06 Advanced to FLD
04/07 Fevers: UA neg, CXR wnl, CT abd/pelvis:a persistent fluid collection underneath the left lobe of the liver adjacent to the lesser curvature of the stomach with the current surgical drain essentially going right into the middle of this bilobed
collection.
04/11 IR drain exchange
POD 3 s/p RTOR lap drainage of intra-ab abscess. SHERIE in place with purulent drainage
-- UGI
-- NPO, okay for meds, ice chips. will hold off on restarting TPN for now
-- Abx: per ID
-- Pain control: Tylenol, Tramadol with Dilaudid IV prn breakthrough, no NSAIDs
-- PO meds
-- Twice daily PPI
-- Lovenox for DVT ppx
Time Spent
Total Time Spent with Patient (in minutes): 20
Subjective Data
-
Date of Service: April 16, 2024
Interval Events:
No acute events overnight. Slept well. Pain Controlled. Denies Nausea/Vomiting, +bowel function. Tolerating diet.
Objective Data
-
Intake and Output
04/15/24 04/16/24 04/17/24
06:59 06:59 06:59
Intake Total 2700 / 2700 1370 / 1370
Output Total 270 / 270 185 / 185
Balance 2430 / 2430 1185 / 1185
Intake:
Oral fluids 1860 / 1860 1100 / 1100
IV fluids (Total) 500 / 500 50 / 50
IV piggybacks 340 / 340 220 / 220
Output:
Drain Output (Total) 270 / 270 185 / 185
Right Lower Abdomen 270 / 270 185 / 185
Other:
Number of approximated MODERATE 3 3
amounts of urine
Vital Signs
Temp Pulse Resp BP Pulse Ox
99.3 F 69 16 124/77 94
04/16/24 07:15 04/16/24 07:15 04/16/24 07:15 04/16/24 07:15 04/16/24 08:00
Lab Results
04/16/24 04:55
04/16/24 04:55
Calcium 8.7 mg/dl (8.4-10.2) 04/16/24 04:55
Phosphorus 4.1 mg/dl (2.5-4.5) 04/16/24 04:55
Magnesium 2.1 mg/dl (1.6-2.3) 04/16/24 04:55
Total Bilirubin 0.5 mg/dl (0.2-1.3) 04/16/24 04:55
Direct Bilirubin 0.3 mg/dl (0.0-0.4) 04/10/24 04:38
AST 55 U/L (14-36) H 04/16/24 04:55
ALT 106 U/L (0-35) H 04/16/24 04:55
Alkaline Phosphatase 100 U/L (38-126) 04/16/24 04:55
Total Protein 5.3 g/dl (6.3-8.2) L 04/16/24 04:55
Albumin 2.5 g/dl (3.5-5.0) L 04/16/24 04:55
Physical Exam
-
GENERAL/NEURO: Awake, Alert, no distress
CHEST: Unlabored breathing on RA
ABDOMEN: Soft, Non-Tender, Non-Distended, incisions clean dry and intact. SHERIE with milky brown output concerning for leak
--- NOTE | 2024-04-16 10:13 | W.PN.HOSP.TC ---
Today's Communication/Plan
-
NPO
Upper GI series
start IVF
IV abx/antifungal
Assessment / Plan
Assessment / Plan
Gen-AAOx3, NAD, obese
HEENT-NC, AT, anicteric, clear oral mm
Neck-supple
CV-reg, no M, +S1/S2
Lungs-clear B/L
Abd-soft, nondistended, mild tenderness, drain in place with output noted
Ext-no edema
Musculoskeletal-no cyanosis, clubbing
Skin-warm and dry
Neuro-grossly non-focal
Psych-calm, cooperative
Sepsis due to acute perforated gastric ulcer/intra-abdominal abscess - hemodynamically stable. Underwent washout of abdominal abscess 04/02.
Blood cultures positive for Group F Peptostrep species,. Fluid culture from the OR abdominal fluid positive for group F Streptococcus, Neisseria species. Neisseria species as send out.
Repeat CT abdomen pelvis 04/07 shows a second small fluid and air collection in the abdomen, as well as a fluid and air collection along the right lateral and inferior margin of the liver.
Mild leukocytosis and fever noted.
IV ertapenem per infectious disease switch to p.o. Augmentin +Cipro and now on IV Unasyn. Micafungin also added.
Status post with drain exchange and manipulation status post 10 cc of purulent appearing fluid sent for microbiology..
Status post diagnostic laparoscopy with washout of intra-abdominal abscess and new SHERIE drain placement on 04/13
Diet downgraded again today. Concern for leak. Plan for Upper Gi series today
Start gentle IVF.
Leukocytosis resolved.
Perforated gastric ulcer, subacute - Underwent laparoscopic modified Chaim patch repair, washout of intra-abdominal abscess, EGD on 04/02. Single contrast upper GI series performed on April 05 was normal with no extravasation.
H. pylori negative based on path report. Continue twice daily Protonix.
TPN discontinued on 04/09.
See additional plan as above.
General surgery Recs
Acute on chronic normocytic anemia -acute postop anemia likely due to operative blood loss, as well as gastric ulcer related GI bleed. Component of hemodilution from IV fluids possible. Hemoglobin stable. transfused 1 unit of blood on April 04.
Moving bowels. Hgb 8.3 Trend for now. May require additional unit.
Hyponatremia -resolved.
Elevated transaminases -likely reactive and due to abdominal process/sepsis/?TPN. Transaminases continue to improve. Bilirubin and alkaline phosphatase normal. Hold statin. Trend for now. Possibly due to TPN as improvement noted with
discontinuation of it
Essential hypertension-episode of hypotension after receiving dose of lisinopril. Blood pressure overall seems well-controlled. Will DC lisinopril 10 mg for now, monitor off.
Hyperlipidemia -on simvastatin at home. Hold for elevated transaminases.
Obesity due to excess calories
DVT ppx-lovenox
Full code
d/w with Dr. Pedroza
d/w with family member at bedside
Anticipated Discharge: > 48 hours
Subjective/Interval History
-
Date of Service: April 16, 2024
Sherie drains remains with output-concern for leak
no severe abd pain
denies nausea or vomiting
Objective Data
-
Labs:
Laboratory Results
04/16/24
04:55
WBC 10.2
Hgb 8.3 L
Hct 25.7 L
Plt Count 587 H
Sodium 137
Potassium 4.4
Chloride 102
Carbon Dioxide 29
BUN 7
Creatinine 0.5 L
Glucose 88
Calcium 8.7
Total Bilirubin 0.5
AST 55 H
ALT 106 H
Alkaline Phosphatase 100
Vital Signs:
Vital Signs
Temp Pulse Resp BP Pulse Ox
99.3 F 69 16 124/77 94
04/16/24 07:15 04/16/24 07:15 04/16/24 07:15 04/16/24 07:15 04/16/24 08:00
I&O
04/15/24 04/16/24 04/17/24
06:59 06:59 06:59
Intake Total 2700 / 2700 1370 / 1370
Output Total 270 / 270 185 / 185
Balance 2430 / 2430 1185 / 1185
Data Reviewed
-
Total Time Spent with Patient (in minutes): 56
[2024-04-16] MEDS: LR 1000 IV ×2 (10:24→23:13)
--- NOTE | 2024-04-16 11:16 | W.PN.ID1 ---
Date of Service
Date of Service: April 16, 2024
Today's Communication
Continue Unasyn, Micafungin.
Assessment / Plan
Intraabdominal abscess s/p washout
- Perforated gastric ulcer s/p Chaim patch
- Neisseria ID'ed as 'saprophytic' (not N. gonorrhoeae�or�N. meningitidis).
- s/p return to OR for drainage of additional collection 04/13
- 04/13 OR gram stain GPC, GNR, cx pending
- for upper GI series today due to persistent gastric leak (Ensure draining into SHERIE drain).
- Continue Unasyn and micafungin (d4) pending final OR cx.
- fever and leukocytosis resolved
thrombocytosis
Transaminitis
- TPN previously stopped
- Follow LFT's,
����������������������������������������������������������
Chief Complaint
-: Other (abdominal abscess)
Subjective / Review of Systems
Mild chocolate ensure going into abdominal drain.
Vital Signs / Physical Exam
Vital Signs
Vital Signs
Temp Pulse Resp BP Pulse Ox
99.3 F 69 16 124/77 94
04/16/24 07:15 04/16/24 07:15 04/16/24 07:15 04/16/24 07:15 04/16/24 08:00
Physical Exam
Constitutional: Comfortable
Gastrointestinal: Soft, Non Tender, Non Distended and Other (right upper drain: light chocolate milk fluid)
Neurological: AO x 3
Objective Data
Lab Data
Lab Results
04/16/24 04:55
04/16/24 04:55
Estimated Creat Clear 83 ml/min 04/16/24 04:55
Lactic Acid 1.2 mmol/L (0.7-2.0) 04/02/24 11:20
Total Bilirubin 0.5 mg/dl (0.2-1.3) 04/16/24 04:55
GGT 80 U/L (12-43) H 04/10/24 04:38
AST 55 U/L (14-36) H 04/16/24 04:55
ALT 106 U/L (0-35) H 04/16/24 04:55
Alkaline Phosphatase 100 U/L (38-126) 04/16/24 04:55
Most recent labs reviewed.
Micro Results:
04/14/24 11:12 Wound Culture - Preliminary
Abscess Gram Stain - Preliminary
04/11/24 15:25 Wound Culture - Final
Abscess Gram Stain - Final
04/14/24 11:11 Fungal Culture - Preliminary
Abdomen Culture in progress.
Positive cultures are reported as soon as detected.
Final report to follow in four to five weeks.
04/08/24 12:28 Blood Culture - Final
Blood/Venous No Growth - Final Report
04/08/24 10:04 Blood Culture - Final
Blood/Venous No Growth - Final Report
04/02/24 11:27 Blood Culture - Final
Blood/Venous Peptostrep. asaccharolyticus
Gram Stain - Final
04/08/24 18:24 C. difficile GDH Antigen & Toxins - Final
Feces/Stool Negative for toxigenic C.difficile
04/02/24 18:17 Wound Culture - Final
Abscess Group F Streptococcus
Neisseria species
Gram Stain - Final
04/02/24 11:20 Blood Culture - Final
Blood/Venous No Growth - Final Report
04/02/24 18:17 Anaerobic Culture - Final
Abscess
04/02/24 19:42 Tissue Culture - Final
Abdomen Group F Streptococcus
Gram Stain - Final
[2024-04-16 15:15] VITALS: BP 121/70
[2024-04-16] MEDS: ULTRAM 50 MG PO (15:16)
[2024-04-16] MEDS: MYCAMINE 105 MG IV (15:23)
[2024-04-16] MEDS: LOVENOX 40 MG SC (16:59)
[2024-04-16] MEDS: CATHFLO/ACTIVASE 2 MG IV (17:21)
--- NOTE | 2024-04-16 17:56 | VATNOTE ---
Called by staff climate scientist, purple lumen of Rt. DL Picc, clotted. TPA instilled per protocol for positive blood return. sourcing consultant aware.
[2024-04-16] MEDS: CELEXA 20 MG PO (21:01)
[2024-04-16 23:00] VITALS: BP 140/79
[2024-04-16] MEDS: TYLENOL 1000 MG PO (23:15)
[2024-04-17] MEDS: UNASYN IV ×4 (03:28→22:00)
[2024-04-17 04:24] LABS: % Basophils 0.3 % (0-2); % Eosinophils 0.9 % (0-6); % Immature Granulocytes 0.7 % (0-0.5); % Lymphocytes 17.8 % (20.5-51.1); % Monocytes 6.8 % (1.7-9.3); % Neutrophils 73.5 % (42.2-75.2); Absolute Eosinophils 0.1 10^3/uL (0-0.7); Absolute Immature Granulocytes 0.1 10^3/uL (0-0.05); Absolute Monocytes 0.8 10^3/uL (0.1-0.6); Absolute Neutrophils 8.1 10^3/uL (1.4-6.5); Hematocrit 23.2 % (37.0-47.0); Hemoglobin 7.9 g/dL (12.0-16.0); Mean Corp Hgb Conc. 34.1 g/dL (33.0-37.0); Mean Corpuscular Hgb 30.3 pg (27.0-31.0); Mean Corpuscular Volume 88.9 fL (81.0-99.0); Mean Platelet Volume 9.8 fL (7.4-10.4); Nucleated Red Blood Cells % 0 %; Platelet Count 579 10^3/uL (130-400); Red Blood Cell Count 2.61 10^6/uL (4.20-5.40); Red Cell Dist. Width 13.7 % (11.5-14.5)
[2024-04-17 05:13] LABS: ALT (SGPT) 83 U/L (0-35); AST (SGOT) 34 U/L (14-36); Albumin 2.4 g/dl (3.5-5.0); Alkaline Phosphatase 85 U/L (38-126); Blood Urea Nitrogen 6 mg/dl (7-17); Calcium 8.6 mg/dl (8.4-10.2); Carbon Dioxide 28 mmol/L (22-30); Chloride 105 mmol/L (98-107); Estimated Creatinine Clearance 83 ml/min; Glucose 93 mg/dl (70-99); Potassium 3.8 mmol/L (3.5-5.1); Sodium 138 mmol/L (135-145); Total Bilirubin 0.4 mg/dl (0.2-1.3); eGFR > 60.00
[2024-04-17 05:27] VITALS: BMI 32.5
[2024-04-17 07:00] VITALS: BP 162/78
[2024-04-17] MEDS: PROTONIX 40 MG PO (08:04)
--- NOTE | 2024-04-17 08:40 | W.PN.GS2 ---
Today's Communication / Plan
-
-- No plans for repeat surgical intervention at this time, discussions ongoing with GI about endoscopic clip
-- NPO, changed PO meds to IV if able, will hold off on restarting TPN for now given issues with liver, would consider restarting if continues to normalize
-- Abx: per ID
Assessment / Plan
-
Assessment: 69 yo F who presented with a 10-day history of epigastric abdominal pain, melena
POD#13 EGD, laparoscopic modified Chaim patch repair and drainage of intra-abdominal abscess, for a perforated gastric ulcer. OR cultures positive for Streptococcus and Neisseria, path negative for atypia or H. pylori.
04/04 1 unit pRBC
04/05 UGI-negative for leak. NG tube removed and started on clears.
04/06 Advanced to FLD
04/07 Fevers: UA neg, CXR wnl, CT abd/pelvis:a persistent fluid collection underneath the left lobe of the liver adjacent to the lesser curvature of the stomach with the current surgical drain essentially going right into the middle of this bilobed
collection.
04/11 IR drain exchange
POD#4 s/p RTOR lap drainage of intra-ab abscess.
04/16 UGI Recurrent small cleak with contrast pooling more cranially
Delayed repeat leak. Currently stable. SHERIE in place with minimal clear output. No plans for repeat surgical intervention at this time, discussions ongoing with GI about endoscopic clip
-- No plans for repeat surgical intervention at this time, discussions ongoing with GI about endoscopic clip
-- NPO, changed PO meds to IV if able, will hold off on restarting TPN for now given issues with liver, would consider restarting if continues to normalize
-- Abx: per ID
-- Pain control: Tylenol, Dilaudid IV prn breakthrough, no NSAIDs
-- Twice daily PPI
-- Lovenox for DVT ppx
Subjective Data
-
Date of Service: April 17, 2024
No new complaints. Feels well. Denies any abdominal pain. No nausea or vomiting. Low-grade fevers yesterday, afebrile currently.
Objective Data
-
Intake and Output
04/16/24 04/17/24 04/18/24
06:59 06:59 06:59
Intake Total 1370 / 1370 2325 / 2325
Output Total 185 / 185 90 / 90
Balance 1185 / 1185 2235 / 2235
Intake:
Oral fluids 1100 / 1100 360 / 360
IV fluids (Total) 50 / 50 1380 / 1380
IV piggybacks 220 / 220 585 / 585
Output:
Drain Output (Total) 185 / 185 90 / 90
Right Lower Abdomen 185 / 185 90 / 90
Other:
Number of approximated MODERATE 3 1
amounts of urine
Number of unmeasured liquid
stools
Rectum 1
Vital Signs
Temp Pulse Resp BP Pulse Ox
98.5 F 68 18 162/78 97
04/17/24 07:00 04/17/24 07:00 04/17/24 07:00 04/17/24 07:00 04/17/24 07:00
Lab Results
04/17/24 04:18
04/17/24 04:18
Calcium 8.6 mg/dl (8.4-10.2) 04/17/24 04:18
Phosphorus 4.1 mg/dl (2.5-4.5) 04/16/24 04:55
Magnesium 2.1 mg/dl (1.6-2.3) 04/16/24 04:55
Total Bilirubin 0.4 mg/dl (0.2-1.3) 04/17/24 04:18
Direct Bilirubin 0.3 mg/dl (0.0-0.4) 04/10/24 04:38
AST 34 U/L (14-36) 04/17/24 04:18
ALT 83 U/L (0-35) H 04/17/24 04:18
Alkaline Phosphatase 85 U/L (38-126) 04/17/24 04:18
Total Protein 5.0 g/dl (6.3-8.2) L 04/17/24 04:18
Albumin 2.4 g/dl (3.5-5.0) L 04/17/24 04:18
Physical Exam
-
Gen: NAD
Abd: soft, NT/ND, non-peritoneal, incisions c/d/i no erythema, ecchymosis or drainage, SHERIE with minimal clear output
--- NOTE | 2024-04-17 10:34 | W.PN.ID1 ---
Date of Service
Date of Service: April 17, 2024
Today's Communication
- Continue Unasyn; no yeast have been seen on gram stains or grown - stopped micafungin
Assessment / Plan
Intraabdominal abscess s/p washout
- Perforated gastric ulcer s/p Chaim patch
- Neisseria ID'd as 'saprophytic' (not N. gonorrhoeae�or�N. meningitidis).
- s/p return to OR for drainage of additional collection 04/13
- 04/13 OR Neisseria, H parainfluenzae, strep - quite similar to previous culture
- upper GI series - leak noted with drainage into vicinity of catheter
- note consideration of endoscopic clip
- Continue Unasyn; no yeast have been seen on gram stains or grown - stopped micafungin
- fever and leukocytosis resolved
thrombocytosis
Transaminitis
- TPN previously stopped
- Follow LFT's,
����������������������������������������������������������
Chief Complaint
-: Other (abdominal abscess)
Subjective / Review of Systems
Tmax 100.2 overnight
bp stable
minimal leukocytosis noted today
persistent thrombocytosis
no L shift
ALT continued improvement
'my belly feels good today'
had two large episodes of liquid stool last night - none further
Vital Signs / Physical Exam
Vital Signs
Vital Signs
Temp Pulse Resp BP Pulse Ox
98.5 F 68 18 162/78 97
04/17/24 07:00 04/17/24 07:00 04/17/24 07:00 04/17/24 07:00 04/17/24 07:00
Physical Exam
Constitutional: No Acute Distress
Cardiovascular: Regular Rate and S1/S2; Negative Murmur or Rub
Pulmonary: Clear and Symmetric; Negative Wheezes or Rales
Gastrointestinal: Soft, Non Tender, Non Distended and Normal Bowel Sounds
Skin: Warm and Dry; Negative Rash or Jaundice
Lines: Other (drain mostly serous fluid - scant purulent stranding)
Objective Data
Lab Data
Lab Results
04/17/24 04:18
04/17/24 04:18
Estimated Creat Clear 83 ml/min 04/17/24 04:18
Lactic Acid 1.2 mmol/L (0.7-2.0) 04/02/24 11:20
Total Bilirubin 0.4 mg/dl (0.2-1.3) 04/17/24 04:18
GGT 80 U/L (12-43) H 04/10/24 04:38
AST 34 U/L (14-36) 04/17/24 04:18
ALT 83 U/L (0-35) H 04/17/24 04:18
Alkaline Phosphatase 85 U/L (38-126) 04/17/24 04:18
Most recent labs reviewed.
Micro Results:
04/14/24 11:12 Wound Culture - Final
Abscess Neisseria species
Haemophilus parainfluenzae
Strep species,not Enterococcus
Gram Stain - Final
04/14/24 11:11 Fungal Culture - Preliminary
Abdomen Culture in progress.
Positive cultures are reported as soon as detected.
Final report to follow in four to five weeks.
04/11/24 15:25 Wound Culture - Final
Abscess Gram Stain - Final
04/08/24 12:28 Blood Culture - Final
Blood/Venous No Growth - Final Report
04/08/24 10:04 Blood Culture - Final
Blood/Venous No Growth - Final Report
04/02/24 11:27 Blood Culture - Final
Blood/Venous Peptostrep. asaccharolyticus
Gram Stain - Final
04/08/24 18:24 C. difficile GDH Antigen & Toxins - Final
Feces/Stool Negative for toxigenic C.difficile
04/02/24 18:17 Wound Culture - Final
Abscess Group F Streptococcus
Neisseria species
Gram Stain - Final
04/02/24 11:20 Blood Culture - Final
Blood/Venous No Growth - Final Report
04/02/24 18:17 Anaerobic Culture - Final
Abscess
04/02/24 19:42 Tissue Culture - Final
Abdomen Group F Streptococcus
Gram Stain - Final
--- NOTE | 2024-04-17 11:28 | CM ---
CM reviewed pt with Dr Medley- ADC >48 hours
Pt remains with abdominal drain, TPN stopped
ID following along with PT/OT
Pt previously referred to [facility] and pt accepted for service
CM will remains available for dc planning
Discharge Disposition- home with [facility], watch for possible TPN and IV needs
[2024-04-17] MEDS: LR 1000 IV ×2 (11:36→23:30)
--- NOTE | 2024-04-17 13:44 | W.PN.HOSP.TC ---
Today's Communication/Plan
-
Await GI
NPO with IVF today
If diarrhea gets worse-needs C. difficile check
Assessment / Plan
Assessment / Plan
CVS: S1-S2 normal
Chest: CTA B/L
Abdomen: Soft, NT ,Lap wounds stable, Bowel sounds present
Extremities: No edema, normal pulses
#Sepsis due to acute perforated gastric ulcer/intra-abdominal abscess - hemodynamically stable. Underwent washout of abdominal abscess 04/02.
Blood cultures positive for Group F Peptostrep species,. Fluid culture from the OR abdominal fluid positive for group F Streptococcus, Neisseria species.
Repeat CT abdomen pelvis 04/07 shows a second small fluid and air collection in the abdomen, as well as a fluid and air collection along the right lateral and inferior margin of the liver.
Mild leukocytosis and fever noted.
Single contrast upper GI series performed on April 05 was normal with no extravasation.
H. pylori negative based on path report. Continue twice daily Protonix.
TPN discontinued on 04/09.
IV ertapenem per infectious disease switch to p.o. Augmentin +Cipro and now on IV Unasyn. Micafungin stopped
Status post with drain exchange and manipulation status post 10 cc of purulent appearing fluid sent for microbiology..
Status post diagnostic laparoscopy with washout of intra-abdominal abscess and new SHERIE drain placement on 04/13
Per GI series 04/16/24-limited study with nonionic contrast Findings compatible with small volume leak most likely at the level of the distal stomach extending along a 'tract' superiorly.
GI consulted to see if endoscopic Patch can be done.
#Diarrhea- watch , if geets worse check C diff
#Leukocytosis -watch
#Acute on chronic normocytic anemia -acute postop anemia likely due to operative blood loss, as well as gastric ulcer related GI bleed. Component of hemodilution from IV fluids possible. Hemoglobin stable. transfused 1 unit of blood on April 04.
#Hyponatremia -resolved.
#Elevated transaminases -likely reactive and due to abdominal process/sepsis/?TPN.
Transaminases continue to improve.
Hold statin.
Trend for now. Possibly due to TPN as improvement noted with discontinuation of it
#Essential hypertension-episode of hypotension after receiving dose of lisinopril. Blood pressure overall seems well-controlled.
Will DC lisinopril 10 mg for now, monitor off.
#Hyperlipidemia -on simvastatin at home. Hold for elevated transaminases.
#Obesity due to excess calories
#Diverticulosis
#Anxiety/depression-Hold Celexa-restart when can take p.o.
#Stable pulmonary nodules dating back to 02/08/2020, consistent with benign etiologies.
#Hypoalbuminemia
#DVT Prophylaxis-Lovenox
#Full code
D/W with Dr. Morales
D/W GI
D/W RN
Anticipated Discharge: > 48 hours
Subjective/Interval History
-
Date of Service: April 17, 2024
Objective Data
-
Labs:
Laboratory Results
04/17/24
04:18
WBC 11.0 H
Hgb 7.9 L
Hct 23.2 L
Plt Count 579 H
Sodium 138
Potassium 3.8
Chloride 105
Carbon Dioxide 28
BUN 6 L
Creatinine 0.5 L
Glucose 93
Calcium 8.6
Total Bilirubin 0.4
AST 34
ALT 83 H
Alkaline Phosphatase 85
Vital Signs:
Vital Signs
Temp Pulse Resp BP Pulse Ox
98.5 F 68 18 162/78 97
04/17/24 07:00 04/17/24 07:00 04/17/24 07:00 04/17/24 07:00 04/17/24 07:00
I&O
04/16/24 04/17/24 04/18/24
06:59 06:59 06:59
Intake Total 1370 / 1370 2325 / 2325
Output Total 185 / 185 90 / 90
Balance 1185 / 1185 2234 / 223
[2024-04-17 15:00] VITALS: BP 151/71
--- NOTE | 2024-04-17 16:59 | W.PN.UPDATE ---
Update Note
Progress Note Update
discussed case with Dr. Arenas he will review imaging and let GI team know if able to proceed with EGD and consider clip with persistent leak after surgery.
[2024-04-17] MEDS: LOVENOX 40 MG SC (17:08)
[2024-04-17] MEDS: PROTONIX IV 40 MG IV (19:48)
[2024-04-17] MEDS: NSS (PRESERVATIVE FREE) 10 ML IV (19:49)
[2024-04-17] MEDS: TYLENOL 1000 MG PO (19:56)
[2024-04-17] MEDS: CELEXA 20 MG PO (22:00)
[2024-04-17 23:00] VITALS: BP 119/62
[2024-04-18] MEDS: UNASYN IV ×4 (03:13→22:27)
[2024-04-18 04:36] LABS: Hematocrit 23.7 % (37.0-47.0); Hemoglobin 7.7 g/dL (12.0-16.0); Mean Corp Hgb Conc. 32.5 g/dL (33.0-37.0); Mean Corpuscular Hgb 30.1 pg (27.0-31.0); Mean Corpuscular Volume 92.6 fL (81.0-99.0); Mean Platelet Volume 10.4 fL (7.4-10.4); Platelet Count 553 10^3/uL (130-400); Red Blood Cell Count 2.56 10^6/uL (4.20-5.40); Red Cell Dist. Width 13.7 % (11.5-14.5); White Blood Cell Count 7.1 10^3/uL (4.8-10.8)
[2024-04-18 06:00] VITALS: BMI 31.8
--- NOTE | 2024-04-18 06:58 | PN.CDI ---
CDI
- -
CDI:
Physician Documentation Request
Admit Date: 04/02/24 12:32
Dear Doctor Chirag,
Please review the following and provide your response in the progress notes.
Clinical Indicators:
PN, 04/17
#POD#13 EGD, laparoscopic modified Chaim patch repair
#...and drainage of intra-abdominal abscess, for a perforated gastric ulcer. .....
#04/07 Fevers: UA neg, CXR wnl, CT abd/pelvis:a persistent fluid collection underneath
#....the left lobe of the liver adjacent to the lesser curvature of the stomach
#...with the current surgical drain essentially going right into the
#...middle of this bilobed collection.
#04/11 IR drain exchange
#POD#4 s/p RTOR lap drainage of intra-ab abscess.
#04/16 UGI Recurrent small cleak with contrast pooling more cranially
#Delayed repeat leak. Currently stable. SHERIE in place with minimal clear output.
#No plans for repeat surgical intervention at this time,
#...discussions ongoing with GI about endoscopic clip
Galindo, PN, 04/17
#Per GI series 04/16/24-limited study with nonionic contrast Findings
#...compatible with small volume leak most likely at the level of the
#...distal stomach extending along a 'tract' superiorly.
Please clarify the following:
Persistent leak is a complication of the surgery
Persistent leak is unexpected but is NOT a complication of the surgery
Persistent leak is an expected occurrence and is not a complication of surgery
Persistent leak is inherent to/unavoidable during the surgery and is not a complication
Other(please specify)
Use of terms such as suspected, likely, concern for, or probable (associated with a specific diagnosis that is being evaluated, monitored, or treated as if it exists) are acceptable and can be coded in the inpatient setting, when documented at the
time of discharge.
Thank you,
Lauren Tapia RN BSN CCDS
CDI Specialist
please contact via tiger text
Please use your independent medical judgment in providing your response.
[2024-04-18] MEDS: NSS (PRESERVATIVE FREE) 10 ML IV ×2 (08:01→19:43)
[2024-04-18] MEDS: PROTONIX IV 40 MG IV ×2 (08:01→19:43)
[2024-04-18 08:18] VITALS: BP 139/75
[2024-04-18] MEDS: LR 1000 IV (12:18)
[2024-04-18] MEDS: TYLENOL 1000 MG PO (12:23)
--- NOTE | 2024-04-18 13:34 | W.PN.GI.CBS2 ---
Addendum entered and electronically signed by Carrie Oneal MD 04/18/24 15:22:
I saw and examined the patient.
The PROCEDURE WRITER's note was reviewed and I agree with the note.
Comment: This is a 69-year-old female who presented on 04/02 with abdominal pain and was noted to have a large abscess adjacent to the proximal stomach may be related to gastric perforation she then went for an emergent surgery with Dr. Perez on
04/03 had ex lap status post laparoscopic drainage of intra-abdominal abscess, modified Chaim patch, repair of perforated gastric ulcer and EGD and gastric biopsies at that time were negative for H. pylori. She then had an upper GI on 04/05 which
was negative for leak subsequently NG tube was removed and was started on clear liquids and diet was advanced to full liquids on the but then patient started to develop fevers on the and she had a repeat CAT scan which showed a persistent
fluid collection adjacent to the lesser curvature of the stomach she then had IR exchanged the drain on 04/11 and had repeat laparoscopy on 04/13 with washout of intra-abdominal abscess and still has a drain in place. She then had a repeat UGI on
04/16 which still shows a small leak and we were consulted to see if she could have endoscopic repair. Discussed with Dr. Arenas and he will attempt endoscopic closure. She remains on antibiotics and PPI. Avoid NSAIDs aspirin is also been on hold
since admission
Original Note:
Today's Communication / Plan
-
s/p laparoscopic drainage of intra-abdominal abscess, modified Chaim patch repair of perforated gastric ulcer, EGD and repeat lap 04/13
04/16 still with leak on UGI series
reviewed with Dr. Arenas plan for EGD this week with attempt for endoscopic closure
discussed with patient will be add on case this week as time allows as soon as this afternoon
cont abx
remains off TPN
LFT trend improving
trend CBC
discussed NSAID avoidance
cont PPI IV BID
reviewed with Dr. Medley
Assessment / Plan
-
Pt is a 69yo presents with hx HTN, hypercholesterolemia, anxiety/depression on daily ASA therapy and now admits to some Advil in December and January while going on [place]. She presented 04/02 with abdominal pain for 10 days but looking
back had occasional discomfort while doing intermittent fasting diet in February. She was noted with vomiting, abdominal pain then rectal bleeding. On admission she is noted with WBC 18,[address] with concern for large abscess adjacent
to the proximal stomach and pancreas, measuring 9.6 x 8.3 x 4.5 cm, consisting of extraluminal fluid and air. Abscess may be related to gastric perforation, peripancreatic abscess, or other etiology. Finding also reported possible discontinuity in
the region of the gastric fundus, although evaluation is limited without oral contrast and to consider EGD. She proceeded to OR 04/03 with repair and returned 04/13 for wash out but still with persistent leak noted on UGI 04/16. Asked to see for
endoscopic closure. Pt was on TPN but stopped with rise in LFT's bx neg pylori
-abnormal CT with concern for large abscess adjacent to proximal stomach and pancreas with fluid and air related to gastric perforation, peripancreatic abscess, or other etiology
-04/03 exp lap with s/p laparoscopic drainage of intra-abdominal abscess, modified Chaim patch repair of perforated gastric ulcer, EGD
-04/13 lap with wash out of intraabdominal abscess
-rectal bleeding on admission
-increased LFT's with slow improvement
-leukocytosis- resolving
other medical problems:
-HTN
-hypercholesterolemia
-anxiety/depression
-ETOH use 1 glass wine daily
PLAN:
s/p laparoscopic drainage of intra-abdominal abscess, modified Chaim patch repair of perforated gastric ulcer, EGD and repeat lap 04/13
04/16 still with leak on UGI series
reviewed with Dr. Arenas plan for EGD this week with attempt for endoscopic closure
discussed with patient will be add on case this week as time allows as soon as this afternoon
cont abx
remains off TPN
LFT trend improving
trend CBC
discussed NSAID avoidance
cont PPI IV BID
reviewed with Dr. Medley
Subjective
Subjective
Date of Service: April 18, 2024
NPO concern for persistent leak after gastric ulcer, 04/18 brown stool
Objective
Data Reviewed
Laboratory Data:
Laboratory Results
04/18/24 03:58
04/17/24 04:18
Laboratory Results
Phosphorus 4.1 mg/dl (2.5-4.5) 04/16/24 04:55
Magnesium 2.1 mg/dl (1.6-2.3) 04/16/24 04:55
Total Bilirubin 0.4 mg/dl (0.2-1.3) 04/17/24 04:18
AST 34 U/L (14-36) 04/17/24 04:18
ALT 83 U/L (0-35) H 04/17/24 04:18
Alkaline Phosphatase 85 U/L (38-126) 04/17/24 04:18
Lipase 91 U/L (23-300) 04/02/24 09:32
Vital Signs and I&O:
Vital Signs
Temp Pulse Resp BP Pulse Ox
98.4 F 76 18 139/75 95
04/18/24 08:18 04/18/24 08:18 04/18/24 08:18 04/18/24 08:18 04/18/24 08:18
I&O
04/17/24 04/18/24 04/19/24
06:59 06:59 06:59
Intake Total 2325 / 2325 1540 / 1540
Output Total 90 / 90 75 / 75
Balance 2235 / 2235 1465 / 1465
Physical Exam
Physical Exam
HEENT: Anicteric and Moist mucous membranes
Cardiology: Normal Sinus Rhythm
Pulmonary: Clear
GI: Soft, Non Distended, Non Tender and Other (Joel in place, several lap incisions intact )
Extremities: No Edema
Neuro: Non Focal
--- NOTE | 2024-04-18 14:02 | W.PN.HOSP.TC ---
Today's Communication/Plan
-
GI eval
Iron studies
Labs in am if Hb Low may need transfusion
Assessment / Plan
Assessment / Plan
CVS: S1-S2 normal
Chest: CTA B/L
Abdomen: Soft, NT ,Lap wounds stable, Bowel sounds present
Extremities: No edema, normal pulses
#Sepsis due to acute perforated gastric ulcer/intra-abdominal abscess - hemodynamically stable. Underwent washout of abdominal abscess 04/02.
Blood cultures positive for Group F Peptostrep species,. Fluid culture from the OR abdominal fluid positive for group F Streptococcus, Neisseria species.
Repeat CT abdomen pelvis 04/07 shows a second small fluid and air collection in the abdomen, as well as a fluid and air collection along the right lateral and inferior margin of the liver.
Mild leukocytosis and fever noted.
Single contrast upper GI series performed on April 05 was normal with no extravasation.
H. pylori negative based on path report. Continue twice daily Protonix.
TPN discontinued on 04/09.
IV ertapenem per infectious disease switch to p.o. Augmentin +Cipro and now on IV Unasyn. Micafungin stopped
Status post with drain exchange and manipulation status post 10 cc of purulent appearing fluid sent for microbiology..
Status post diagnostic laparoscopy with washout of intra-abdominal abscess and new SHERIE drain placement on 04/13
Per GI series 04/16/24-limited study with nonionic contrast Findings compatible with small volume leak most likely at the level of the distal stomach extending along a 'tract' superiorly.
GI consulted to see if endoscopic Patch can be done.
Possible today or tomorrow
#Diarrhea- watch , if gets worse check C diff
#Leukocytosis -Resolved
#Acute on chronic normocytic anemia -acute postop anemia likely due to operative blood loss, as well as gastric ulcer related GI bleed. Component of hemodilution from IV fluids possible. Hemoglobin stable. transfused 1 unit of blood on April 04.
May need one more if continues to drop. Check iron studies
#Hyponatremia -resolved.
#Elevated transaminases -likely reactive and due to abdominal process/sepsis/?TPN.
Transaminases continue to improve.
Hold statin.
Trend for now. Possibly due to TPN as improvement noted with discontinuation of it
#Essential hypertension-episode of hypotension after receiving dose of lisinopril. Blood pressure overall seems well-controlled.
Off lisinopril 10 mg for now, monitor off.
#Hyperlipidemia -on simvastatin at home. Hold for elevated transaminases.
#Obesity due to excess calories
#Diverticulosis
#Anxiety/depression-Hold Celexa-restart when can take p.o.
#Stable pulmonary nodules dating back to 02/08/2020, consistent with benign etiologies.
#Hypoalbuminemia
#DVT Prophylaxis-Lovenox
#Full code
D/W with Dr Barillas at bed side
D/W GI
D/W RN
Anticipated Discharge: > 48 hours
Subjective/Interval History
-
Date of Service: April 18, 2024
Objective Data
-
Labs:
Laboratory Results
04/18/24
03:58
WBC 7.1
Hgb 7.7 L
Hct 23.7 L
Plt Count 553 H
Vital Signs:
Vital Signs
Temp Pulse Resp BP Pulse Ox
98.4 F 76 18 139/75 95
04/18/24 08:18 04/18/24 08:18 04/18/24 08:18 04/18/24 08:18 04/18/24 08:18
I&O
04/17/24 04/18/24 04/19/24
06:59 06:59 06:59
Intake Total 2325 / 2325 1540 / 1540
Output Total 90 / 90 75 / 75
Balance 2235 / 2235 1465 / 1465
[2024-04-18 14:32] LABS: Total Iron Binding Capacity 182 ug/dl (265-497)
[2024-04-18 14:38] LABS: Iron < 20 ug/dl (37-170)
--- NOTE | 2024-04-18 14:45 | W.PN.UPDATE ---
Addendum entered and electronically signed by Felipe Barillas MD 04/18/24 15:22:
POD 14 lap modified falguni patch, EGD, lap drainage intra-ab abscess
POD5 s/p RTOR lap washout
Pt seen and evaluated at bedside.
Reports beginning to feel some abd pain again, but remains well controlled
She is hungry
On exam, drain is purulent, incisions cdi, mild/mod ttp to epigastrium
04/16 UGI demonstrates leak
Plan:
NPO
IVF
added on for endoscopic clip
cont IV abx
DVT ppx
Ambulate
Would repeat UGI after clip application, if no leak can begin advancing diet
Original Note:
Update Note
Progress Note Update
Added on for endoscopic clip application today, pending availability. Possibly for tomorrow. Cont current mgmt.
[2024-04-18 15:46] LABS: Vitamin B12 913 pg/ml (239-931)
[2024-04-18 16:05] VITALS: BP 133/63
[2024-04-18] MEDS: LOVENOX 40 MG SC (17:05)
[2024-04-18] MEDS: DILAUDID 0.5 MG IV (19:55)
[2024-04-18] MEDS: CELEXA 20 MG PO (22:26)
[2024-04-18 23:50] VITALS: BP 149/76
[2024-04-19] VITALS (7 sets, daily range): BP systolic 112–141; BP diastolic 58–75; PULSE 80; O2SAT 96; BMI 32.1
[2024-04-19] MEDS: LR 1000 IV ×2 (01:32→13:10)
[2024-04-19] MEDS: UNASYN IV ×4 (03:27→21:15)
[2024-04-19 06:35] LABS: Hematocrit 26.3 % (37.0-47.0); Hemoglobin 8.4 g/dL (12.0-16.0); Mean Corp Hgb Conc. 31.9 g/dL (33.0-37.0); Mean Corpuscular Hgb 29.6 pg (27.0-31.0); Mean Corpuscular Volume 92.6 fL (81.0-99.0); Mean Platelet Volume 10.1 fL (7.4-10.4); Platelet Count 562 10^3/uL (130-400); Red Blood Cell Count 2.84 10^6/uL (4.20-5.40); Red Cell Dist. Width 13.8 % (11.5-14.5); White Blood Cell Count 9.5 10^3/uL (4.8-10.8)
[2024-04-19 07:02] LABS: Calcium 8.4 mg/dl (8.4-10.2); Carbon Dioxide 22 mmol/L (22-30); Estimated Creatinine Clearance 82 ml/min; Magnesium 2.1 mg/dl (1.6-2.3); eGFR > 60.00
[2024-04-19 07:10] LABS: Blood Urea Nitrogen 6 mg/dl (7-17); Chloride 105 mmol/L (98-107); Glucose 65 mg/dl (70-99); Potassium 4.1 mmol/L (3.5-5.1); Sodium 137 mmol/L (135-145)
[2024-04-19] MEDS: NSS (PRESERVATIVE FREE) 10 ML IV ×2 (07:29→21:14)
[2024-04-19] MEDS: PROTONIX IV 40 MG IV ×2 (07:29→21:14)
--- NOTE | 2024-04-19 07:53 | W.PN.HOSP.TC ---
Today's Communication/Plan
-
IV antibiotics. IV Protonix.
Assessment / Plan
Assessment / Plan
CVS: S1-S2 normal
Chest: CTA B/L
Abdomen: Soft, NT ,Lap wounds stable, Bowel sounds present
Extremities: No edema, normal pulses
#Sepsis due to acute perforated gastric ulcer/intra-abdominal abscess - hemodynamically stable. Underwent washout of abdominal abscess 04/02.
Blood cultures positive for Group F Peptostrep species,. Fluid culture from the OR abdominal fluid positive for group F Streptococcus, Neisseria species.
Repeat CT abdomen pelvis 04/07 shows a second small fluid and air collection in the abdomen, as well as a fluid and air collection along the right lateral and inferior margin of the liver.
Mild leukocytosis and fever noted.
Single contrast upper GI series performed on April 05 was normal with no extravasation.
H. pylori negative based on path report. Continue twice daily Protonix.
TPN discontinued on 04/09. Consider restarting if LFTs improved.
IV ertapenem per infectious disease switch to p.o. Augmentin +Cipro and now on IV Unasyn. Micafungin stopped
Status post with drain exchange and manipulation status post 10 cc of purulent appearing fluid sent for microbiology..
Status post diagnostic laparoscopy with washout of intra-abdominal abscess and new SHERIE drain placement on 04/13
Per GI series 04/16/24-limited study with nonionic contrast Findings compatible with small volume leak most likely at the level of the distal stomach extending along a 'tract' superiorly.
GI consulted to see if endoscopic Patch can be done. Possible endoscopic clip today and consideration for post-pyloric feeding tube.
#Diarrhea- watch , if gets worse check C diff
#Leukocytosis -Resolved
#Acute on chronic normocytic anemia -acute postop anemia likely due to operative blood loss, as well as gastric ulcer related GI bleed. Component of hemodilution from IV fluids possible. Hemoglobin stable. transfused 1 unit of blood on April 04.
May need one more if continues to drop. Check iron studies
#Hyponatremia -resolved.
#Elevated transaminases -likely reactive and due to abdominal process/sepsis/?TPN.
Transaminases continue to improve.
Hold statin.
Trend for now. Possibly due to TPN as improvement noted with discontinuation of it
#Essential hypertension-episode of hypotension after receiving dose of lisinopril. Blood pressure overall seems well-controlled.
Off lisinopril 10 mg for now, monitor off.
#Hyperlipidemia -on simvastatin at home. Hold for elevated transaminases.
#Obesity due to excess calories
#Diverticulosis
#Anxiety/depression-Hold Celexa-restart when can take p.o.
#Stable pulmonary nodules dating back to 02/08/2020, consistent with benign etiologies.
#Hypoalbuminemia
#DVT Prophylaxis-Lovenox
#Full code
Total time spent on today's encounter was 52 minutes which included time spent in counseling the patient/family regarding diagnosis and treatment plan as listed above, goals of care, and symptom management. Case was discussed with nursing staff,
specialists, and care coordinators/case management. All labs and imaging personally reviewed by me. Remainder the time spent in detailed review of previous records, lab data, imaging, and other medical provider documentation.
Anticipated Discharge: > 48 hours
Subjective/Interval History
-
Date of Service: April 19, 2024
Denies chest pain or shortness of breath. Afebrile
Objective Data
-
Labs:
Laboratory Results
04/19/24
06:16
WBC 9.5
Hgb 8.4 L
Hct 26.3 L
Plt Count 562 H
Sodium 137
Potassium 4.1
Chloride 105
Carbon Dioxide 22
BUN 6 L
Creatinine 0.6
Glucose 65 L
Calcium 8.4
Vital Signs:
Vital Signs
Temp Pulse Resp BP Pulse Ox
98.5 F 72 18 140/73 91
04/19/24 07:20 04/19/24 07:20 04/19/24 07:20 04/19/24 07:20 04/19/24 07:20
I&O
04/18/24 04/19/24 04/20/24
06:59 06:59 06:59
Intake Total 1540 / 1540
Output Total 75 / 75 60 / 60
Balance 1465 / 1465 -60 / -60
--- NOTE | 2024-04-19 11:16 | W.PN.GS2 ---
Today's Communication / Plan
-
Plan for possible endoscopic closure with postpyloric Corpak placement today with Dr. Arenas.
Assessment / Plan
-
Assessment: 69 yo F who presented 04/02/2024 with a 10-day history of epigastric abdominal pain, melena found to have an abscess on the lesser curve of her stomach concerning for perforation.
04/02 POD#17 EGD, laparoscopic modified Chaim patch repair and drainage of intra-abdominal abscess, for a perforated gastric ulcer. OR cultures positive for Streptococcus and Neisseria, path negative for atypia or H. pylori.
04/04 1 unit pRBC
04/05 UGI-negative for leak. NG tube removed and started on clears.
04/06 Advanced to FLD
04/07 Fevers: UA neg, CXR wnl, CT abd/pelvis:a persistent fluid collection underneath the left lobe of the liver adjacent to the lesser curvature of the stomach with the current surgical drain essentially going right into the middle of this bilobed
collection.
04/11 IR drain exchange
04/13 POD#6 s/p RTOR lap drainage of intra-ab abscess.
04/16 UGI Recurrent small cleak with contrast pooling more cranially
Delayed repeat leak. Currently stable. SHERIE in place with minimal clear output. No plans for repeat surgical intervention at this time, discussions ongoing with GI about endoscopic clip
-- No plans for repeat surgical intervention at this time, discussions ongoing with GI about endoscopic clip and possible placement of a postpyloric feeding tube. If successful, anticipate tube feeds for a few days before performing an upper GI to
confirm no residual leak. Anticipate patient requiring repeat CT scan before pulling her SHERIE.
-- NPO, changed PO meds to IV if able, will hold off on restarting TPN for now given issues with liver, would consider restarting if continues to normalize
-- Abx: per ID
-- Pain control: Tylenol, Dilaudid IV prn breakthrough, no NSAIDs
-- Twice daily PPI
-- Lovenox for DVT ppx
Time Spent
Total Time Spent with Patient (in minutes): 20
Subjective Data
-
Date of Service: April 19, 2024
Interval Events:
No acute events overnight. Slept well. Pain Controlled. Denies Nausea/Vomiting, +bowel function.
Objective Data
-
Intake and Output
04/18/24 04/19/24 04/20/24
06:59 06:59 06:59
Intake Total 1540 / 1540
Output Total 75 / 75 60 / 60
Balance 1465 / 1465 -60 / -60
Intake:
Oral fluids 340 / 340
IV fluids (Total) 960 / 960
IV piggybacks 240 / 240
Output:
Drain Output (Total) 75 / 75 60 / 60
Right Lower Abdomen 75 / 75 60 / 60
Other:
Number of approximated MODERATE 2
amounts of urine
Number of unmeasured liquid
stools
Rectum 2
Vital Signs
Temp Pulse Resp BP Pulse Ox
98.5 F 72 18 140/73 91
04/19/24 07:20 04/19/24 07:20 04/19/24 07:20 04/19/24 07:20 04/19/24 08:00
Lab Results
04/19/24 06:16
04/19/24 06:16
Calcium 8.4 mg/dl (8.4-10.2) 04/19/24 06:16
Phosphorus 4.1 mg/dl (2.5-4.5) 04/16/24 04:55
Magnesium 2.1 mg/dl (1.6-2.3) 04/19/24 06:16
Total Bilirubin 0.4 mg/dl (0.2-1.3) 04/17/24 04:18
Direct Bilirubin 0.3 mg/dl (0.0-0.4) 04/10/24 04:38
AST 34 U/L (14-36) 04/17/24 04:18
ALT 83 U/L (0-35) H 04/17/24 04:18
Alkaline Phosphatase 85 U/L (38-126) 04/17/24 04:18
Total Protein 5.0 g/dl (6.3-8.2) L 04/17/24 04:18
Albumin 2.4 g/dl (3.5-5.0) L 04/17/24 04:18
Physical Exam
-
GENERAL/NEURO: Awake, Alert, no distress
CHEST: Unlabored breathing on RA
ABDOMEN: Soft, Non-Tender, Non-Distended, SHERIE with purulent output 65 cc over the past 24 hours.
[2024-04-19] MEDS: DILAUDID 0.5 MG IV (13:13)
--- NOTE | 2024-04-19 16:29 | CM ---
Chart reviewed and patient is doing well with PT/OT, and will follow with patient progress for discharge planning needs.
Plan; Possible home at discharge, with [facility].
--- NOTE | 2024-04-19 16:30 | W.PN.ID1 ---
Date of Service
Date of Service: April 19, 2024
Today's Communication
- Continue Unasyn
Assessment / Plan
Intraabdominal abscess s/p washout
- Perforated gastric ulcer s/p Chaim patch
- Neisseria ID'd as 'saprophytic' (not N. gonorrhoeae�or�N. meningitidis).
- 04/13 OR Neisseria, H parainfluenzae, strep
- upper GI series - leak noted with drainage into vicinity of catheter
- note consideration of endoscopic clip later today
- Continue Unasyn
- fever and leukocytosis resolved
Chief Complaint
-: Other (abdominal abscess)
Subjective / Review of Systems
afebrile
bp stable
wbc is normal
cr stable
with mild abdominal tenderness
frustrated
Vital Signs / Physical Exam
Vital Signs
Vital Signs
Temp Pulse Resp BP Pulse Ox
98.5 F 66 18 137/68 96
04/19/24 15:21 04/19/24 15:21 04/19/24 15:21 04/19/24 15:21 04/19/24 15:21
Physical Exam
Constitutional: No Acute Distress
Cardiovascular: Regular Rate and S1/S2; Negative Murmur or Rub
Pulmonary: Clear and Symmetric; Negative Wheezes or Rales
Gastrointestinal: Soft, Tender (mild in the RUQ), Non Distended and Normal Bowel Sounds
Skin: Warm and Dry; Negative Rash or Jaundice
Objective Data
Lab Data
Lab Results
04/19/24 06:16
04/19/24 06:16
Estimated Creat Clear 82 ml/min 04/19/24 06:16
Lactic Acid 1.2 mmol/L (0.7-2.0) 04/02/24 11:20
Total Bilirubin 0.4 mg/dl (0.2-1.3) 04/17/24 04:18
GGT 80 U/L (12-43) H 04/10/24 04:38
AST 34 U/L (14-36) 04/17/24 04:18
ALT 83 U/L (0-35) H 04/17/24 04:18
Alkaline Phosphatase 85 U/L (38-126) 04/17/24 04:18
Most recent labs reviewed.
Micro Results:
04/14/24 11:12 Wound Culture - Final
Abscess Neisseria species
Haemophilus parainfluenzae
Strep species,not Enterococcus
Gram Stain - Final
04/14/24 11:11 Fungal Culture - Preliminary
Abdomen Culture in progress.
Positive cultures are reported as soon as detected.
Final report to follow in four to five weeks.
04/11/24 15:25 Wound Culture - Final
Abscess Gram Stain - Final
04/08/24 12:28 Blood Culture - Final
Blood/Venous No Growth - Final Report
04/08/24 10:04 Blood Culture - Final
Blood/Venous No Growth - Final Report
04/02/24 11:27 Blood Culture - Final
Blood/Venous Peptostrep. asaccharolyticus
Gram Stain - Final
04/08/24 18:24 C. difficile GDH Antigen & Toxins - Final
Feces/Stool Negative for toxigenic C.difficile
04/02/24 18:17 Wound Culture - Final
Abscess Group F Streptococcus
Neisseria species
Gram Stain - Final
04/02/24 11:20 Blood Culture - Final
Blood/Venous No Growth - Final Report
04/02/24 18:17 Anaerobic Culture - Final
Abscess
04/02/24 19:42 Tissue Culture - Final
Abdomen Group F Streptococcus
Gram Stain - Final
[2024-04-19] MEDS: LOVENOX 40 MG SC (17:05)
--- NOTE | 2024-04-19 18:16 | PTCARENOTE ---
Patient to GI Lab in bed with GI RN's
--- NOTE | 2024-04-19 20:20 | PTCARENOTE ---
Patient arrived from PACU at 20:20, AAO, VSS, patient will remain NPO per MD order/note.
[2024-04-19] MEDS: CELEXA 20 MG PO (21:14)
[2024-04-20 03:31] VITALS: BP 105/52
[2024-04-20] MEDS: UNASYN IV ×4 (04:19→22:07)
[2024-04-20] MEDS: LR 1000 IV ×2 (05:13→20:30)
[2024-04-20 06:00] VITALS: BMI 31.7
[2024-04-20 06:19] LABS: % Basophils 0.2 % (0-2); % Immature Granulocytes 1.2 % (0-0.5); % Lymphocytes 11.3 % (20.5-51.1); % Monocytes 2.7 % (1.7-9.3); % Neutrophils 84.6 % (42.2-75.2); Absolute Immature Granulocytes 0.1 10^3/uL (0-0.05); Absolute Lymphocytes 0.7 10^3/uL (1.2-3.4); Absolute Monocytes 0.2 10^3/uL (0.1-0.6); Absolute Neutrophils 5.6 10^3/uL (1.4-6.5); Hematocrit 27.5 % (37.0-47.0); Hemoglobin 8.8 g/dL (12.0-16.0); Mean Corpuscular Hgb 29.5 pg (27.0-31.0); Mean Corpuscular Volume 92.3 fL (81.0-99.0); Mean Platelet Volume 10.3 fL (7.4-10.4); Nucleated Red Blood Cells % 0 %; Platelet Count 618 10^3/uL (130-400); Red Blood Cell Count 2.98 10^6/uL (4.20-5.40); Red Cell Dist. Width 13.7 % (11.5-14.5); White Blood Cell Count 6.6 10^3/uL (4.8-10.8)
[2024-04-20 06:41] LABS: ALT (SGPT) 39 U/L (0-35); AST (SGOT) 27 U/L (14-36); Albumin 2.7 g/dl (3.5-5.0); Alkaline Phosphatase 74 U/L (38-126); Blood Urea Nitrogen 4 mg/dl (7-17); Calcium 8.6 mg/dl (8.4-10.2); Carbon Dioxide 22 mmol/L (22-30); Chloride 103 mmol/L (98-107); Estimated Creatinine Clearance 81 ml/min; Glucose 120 mg/dl (70-99); Potassium 4.8 mmol/L (3.5-5.1); Sodium 137 mmol/L (135-145); Total Bilirubin 0.3 mg/dl (0.2-1.3); Total Protein 5.4 g/dl (6.3-8.2); eGFR > 60.00
--- NOTE | 2024-04-20 06:54 | W.PN.GI.CBS2 ---
Today's Communication / Plan
-
Please see assessment and plan for details.
Assessment / Plan
-
1. Gastric ulcer: With perforation, abscess and fistula, status post Chaim patch, now status post EGD that showed ulceration with fistulous opening, no evidence of malignancy, status post endoscopic stitch x 2, overall doing well. Will continue
high-dose PPI, supportive care, plan Gastrografin upper GI on Tuesday and if okay can start clears and advance as tolerated.
Subjective
Subjective
Date of Service: April 20, 2024
Patient feeling well, no significant abdominal pain overnight, no fever, chills, nausea or vomiting.
Objective
Data Reviewed
Laboratory Data:
Laboratory Results
04/20/24 05:49
04/20/24 05:49
Laboratory Results
Phosphorus 4.1 mg/dl (2.5-4.5) 04/16/24 04:55
Magnesium 2.1 mg/dl (1.6-2.3) 04/19/24 06:16
Total Bilirubin 0.3 mg/dl (0.2-1.3) 04/20/24 05:49
AST 27 U/L (14-36) 04/20/24 05:49
ALT 39 U/L (0-35) H 04/20/24 05:49
Alkaline Phosphatase 74 U/L (38-126) 04/20/24 05:49
Lipase 91 U/L (23-300) 04/02/24 09:32
Vital Signs and I&O:
Vital Signs
Temp Pulse Resp BP Pulse Ox
97.6 F 68 16 105/52 96
04/20/24 03:31 04/20/24 03:31 04/20/24 03:31 04/20/24 03:31 04/20/24 03:31
I&O
04/18/24 04/19/24 04/20/24
06:59 06:59 06:59
Intake Total 1540 / 1540 2160 / 2160
Output Total 75 / 75 60 / 60 700 / 700
Balance 1465 / 1465 -60 / -60 1460 / 1460
Physical Exam
Physical Exam
General: NAD
Abdomen: normal bowel sounds, soft, no tenderness, no masses or bruits, no ascites
[2024-04-20 07:15] VITALS: BP 113/57
--- NOTE | 2024-04-20 07:44 | W.PN.HOSP.TC ---
Today's Communication/Plan
-
Continue PPI. Plan to resume TPN. IV antibiotics.
Assessment / Plan
Assessment / Plan
Physical exam:
General: Well Developed, Well Nourished and No Apparent Distress
HEENT: Normocephalic, Atraumatic and Moist Mucous Membranes
Respiratory: Clear to Auscultation; Negative Wheezes, Rales or Rhonchi
Cardiac: Regular Rhythm and S1/S2
GI: Soft, Nontender and Nondistended
Musculoskeletal: No Clubbing, No Cyanosis and No Edema
Neuro: Awake, Alert and Oriented
Psych: Calm
EGD:
- Normal esophagus.
- Gastric fistula. Endosuture performed with good
approximation.
- Normal duodenal bulb, first portion of the duodenum
and second portion of the duodenum.
- No specimens collected.
A/P:
#Sepsis due to acute perforated gastric ulcer/intra-abdominal abscess - hemodynamically stable. Underwent washout of abdominal abscess 04/02.
Blood cultures positive for Peptostrep asaccharolyticus. Fluid culture from the OR abdominal fluid positive for Streptococcus, Neisseria, Haemophilus parainfluenza.
Continue IV Unasyn per ID recommendations
Appreciated surgery consult and follow-up.
GI consulted.
Appreciate GI consult and follow-up.
GI s/p EGD 04/19 and results as above.
Continue NPO.
Recommended continue PPI.
Pain control
IV fluids until TPN starts.
Plan to resume TPN per surgery.
Plan to do upper GI study on Tuesday and if okay might start oral intake at that time.
Prior to today:
Repeat CT abdomen pelvis 04/07 shows a second small fluid and air collection in the abdomen, as well as a fluid and air collection along the right lateral and inferior margin of the liver.
Mild leukocytosis and fever noted.
Single contrast upper GI series performed on April 05 was normal with no extravasation.
H. pylori negative based on path report. Continue twice daily Protonix.
TPN discontinued on 04/09. Consider restarting if LFTs improved.
IV ertapenem per infectious disease switch to p.o. Augmentin +Cipro and now on IV Unasyn. Micafungin stopped
Status post with drain exchange and manipulation status post 10 cc of purulent appearing fluid sent for microbiology..
Status post diagnostic laparoscopy with washout of intra-abdominal abscess and new SEHRIE drain placement on 04/13
Per GI series 04/16/24-limited study with nonionic contrast Findings compatible with small volume leak most likely at the level of the distal stomach extending along a 'tract' superiorly.
#Diarrhea- watch , if gets worse check C diff
#Leukocytosis -Resolved
#Acute on chronic normocytic anemia -acute postop anemia likely due to operative blood loss, as well as gastric ulcer related GI bleed. Component of hemodilution from IV fluids possible. Hemoglobin stable. transfused 1 unit of blood on April 04.
May need one more if continues to drop. Check iron studies
#Hyponatremia -resolved.
#Elevated transaminases -likely reactive and due to abdominal process/sepsis/?TPN.
Transaminases continue to improve.
Hold statin.
Trend for now. Possibly due to TPN as improvement noted with discontinuation of it
#Essential hypertension-episode of hypotension after receiving dose of lisinopril. Blood pressure overall seems well-controlled.
Off lisinopril 10 mg for now, monitor off.
#Hyperlipidemia -on simvastatin at home. Hold for elevated transaminases.
#Obesity due to excess calories
#Diverticulosis
#Anxiety/depression-Hold Celexa-restart when can take p.o.
#Stable pulmonary nodules dating back to 02/08/2020, consistent with benign etiologies.
#Hypoalbuminemia
#DVT Prophylaxis-Lovenox
#Full code
Total time spent on today's encounter was 52 minutes which included time spent in counseling the patient/family regarding diagnosis and treatment plan as listed above, goals of care, and symptom management. Case was discussed with nursing staff,
specialists, and care coordinators/case management. All labs and imaging personally reviewed by me. Remainder the time spent in detailed review of previous records, lab data, imaging, and other medical provider documentation.
Anticipated Discharge: > 48 hours
Subjective/Interval History
-
Date of Service: April 20, 2024
Patient has less abdominal pain. No nausea or vomiting. Afebrile
Objective Data
-
Labs:
Laboratory Results
04/20/24
05:49
WBC 6.6
Hgb 8.8 L
Hct 27.5 L
Plt Count 618 H
Sodium 137
Potassium 4.8
Chloride 103
Carbon Dioxide 22
BUN 4 L
Creatinine 0.5 L
Glucose 120 H
Calcium 8.6
Total Bilirubin 0.3
AST 27
ALT 39 H
Alkaline Phosphatase 74
Vital Signs:
Vital Signs
Temp Pulse Resp BP Pulse Ox
98.4 F 67 18 113/57 96
04/20/24 07:15 04/20/24 07:15 04/20/24 07:15 04/20/24 07:15 04/20/24 07:15
I&O
04/19/24 04/20/24 04/21/24
06:59 06:59 06:59
Intake Total 2160 / 2160
Output Total 60 / 60 700 / 700
Balance -60 / -60 1460 / 1460
--- NOTE | 2024-04-20 08:43 | W.PN.GS2 ---
Addendum entered and electronically signed by Lucas Morales MD 04/20/24 08:53:
Patient seen and examined.
No complaints. Denies any abdominal pain. No fevers. No nausea or vomiting.
Gen: NAD
Abd: soft, NT/ND, non-peritoneal, SHERIE serous
Patient is a 69 yo F p/w perforated gastric ulcer
04/02 POD#18 EGD, laparoscopic modified Chaim patch repair and drainage of intra-abdominal abscess, for a perforated gastric ulcer. OR cultures positive for Streptococcus and Neisseria, path negative for atypia or H. pylori.
04/04 1 unit pRBC
04/05 UGI-negative for leak. NG tube removed and started on clears.
04/06 Advanced to FLD
04/07 Fevers: UA neg, CXR wnl, CT abd/pelvis:a persistent fluid collection underneath the left lobe of the liver adjacent to the lesser curvature of the stomach with the current surgical drain essentially going right into the middle of this bilobed
collection.
04/11 IR drain exchange, minimal outputs
04/13 POD#7 s/p RTOR lap drainage of intra-ab abscess.
04/16 UGI Recurrent small leak with contrast pooling more cranially
04/19 EGD with endoscopic stitch x2 for noted fistulous opening
-- NPO x3 days s/p EGD procedure
-- UGI study on Tuesday if continues to progress
-- In light of normalized LFT's and NPO status, will resume TPN
-- Trend labs
-- Continue SHERIE. Anticipate possible repeat UGI before pulling her drain
-- Abx: per ID
-- Pain control: Tylenol, Dilaudid IV prn breakthrough, no NSAIDs
-- PPI dosing as per GI
-- Lovenox for DVT ppx
Original Note:
Today's Communication / Plan
-
NPO/TPN
Assessment / Plan
-
Assessment: 69 yo F who presented 04/02/2024 with a 10-day history of epigastric abdominal pain, melena found to have an abscess on the lesser curve of her stomach concerning for perforation.
04/02 POD#18 EGD, laparoscopic modified Chaim patch repair and drainage of intra-abdominal abscess, for a perforated gastric ulcer. OR cultures positive for Streptococcus and Neisseria, path negative for atypia or H. pylori.
04/04 1 unit pRBC
04/05 UGI-negative for leak. NG tube removed and started on clears.
04/06 Advanced to FLD
04/07 Fevers: UA neg, CXR wnl, CT abd/pelvis:a persistent fluid collection underneath the left lobe of the liver adjacent to the lesser curvature of the stomach with the current surgical drain essentially going right into the middle of this bilobed
collection.
04/11 IR drain exchange, minimal outputs
04/13 POD#7 s/p RTOR lap drainage of intra-ab abscess.
04/16 UGI Recurrent small leak with contrast pooling more cranially
04/19 EGD with endoscopic stitch x2 for noted fistulous opening
-- NPO x3 days s/p EGD procedure. Ok for ice chips
-- UGI study on Tuesday if continues to progress
-- In light of normalized LFT's and NPO status, will resume TPN
-- Trend labs
-- Continue SHERIE. Anticipate possible repeat CT scan before pulling her drain
-- Abx: per ID
-- Pain control: Tylenol, Dilaudid IV prn breakthrough, no NSAIDs
-- PPI dosing as per GI
-- Lovenox for DVT ppx
Subjective Data
-
Date of Service: April 20, 2024
Patient seen and examined at bedside with Dr. Morales. Feeling much less sore and able to move better today. Denies n/v. Passing flatus/stools.
Objective Data
-
Intake and Output
04/19/24 04/20/24 04/21/24
06:59 06:59 06:59
Intake Total 2160 / 2160
Output Total 60 60 700 / 700
Balance -60 / -60 1460 / 1460
Intake:
IV fluids (Total) 1680 / 1680
IV piggybacks 480 / 480
Output:
Drain Output (Total) 60 60 50 / 50
Right Lower Abdomen 60 60 50 / 50
Urine, Voided 650 / 650
Other:
Number of approximated MODERATE 1
amounts of urine
Vital Signs
Temp Pulse Resp BP Pulse Ox
98.4 F 67 18 113/57 96
04/20/24 07:15 04/20/24 07:15 04/20/24 07:15 04/20/24 07:15 04/20/24 07:15
Lab Results
04/20/24 05:49
04/20/24 05:49
Calcium 8.6 mg/dl (8.4-10.2) 04/20/24 05:49
Phosphorus 4.1 mg/dl (2.5-4.5) 04/16/24 04:55
Magnesium 2.1 mg/dl (1.6-2.3) 04/19/24 06:16
Total Bilirubin 0.3 mg/dl (0.2-1.3) 04/20/24 05:49
Direct Bilirubin 0.3 mg/dl (0.0-0.4) 04/10/24 04:38
AST 27 U/L (14-36) 04/20/24 05:49
ALT 39 U/L (0-35) H 04/20/24 05:49
Alkaline Phosphatase 74 U/L (38-126) 04/20/24 05:49
Total Protein 5.4 g/dl (6.3-8.2) L 04/20/24 05:49
Albumin 2.7 g/dl (3.5-5.0) L 04/20/24 05:49
Physical Exam
-
GENERAL/NEURO: Awake, Alert, no distress
CHEST: Unlabored breathing on RA
ABDOMEN: Soft, Non-Tender, Non-Distended, SHERIE with cloudy serous fluid
[2024-04-20] MEDS: NSS (PRESERVATIVE FREE) 10 ML IV ×2 (08:56→20:21)
[2024-04-20] MEDS: PROTONIX IV 40 MG IV ×2 (08:56→20:21)
[2024-04-20] MEDS: TYLENOL 1000 MG PO (08:58)
[2024-04-20] MEDS: FLUSH (NSS) 3 FLUSH IV (09:02)
[2024-04-20 11:05] VITALS: BP 115/60
[2024-04-20 12:00] LABS: Phosphorus 4.1 mg/dl (2.5-4.5); Triglycerides 103 mg/dl (10-149)
[2024-04-20 15:15] VITALS: BP 134/57
[2024-04-20] MEDS: FLUSH (NSS) 2 FLUSH IV (15:59)
[2024-04-20] MEDS: LOVENOX 40 MG SC (17:04)
[2024-04-20 19:45] VITALS: BP 137/70
[2024-04-20] MEDS: CELEXA 20 MG PO (22:06)
[2024-04-20] MEDS: Parenteral Nutrition, Central 900 IV (22:08)
[2024-04-20] MEDS: ZOFRAN 4 MG IV (22:44)
[2024-04-20 23:40] VITALS: BP 134/67
[2024-04-21 00:26] LABS: Glucose - Point of Care 115 mg/dl (70-99)
[2024-04-21] MEDS: UNASYN IV ×4 (04:09→21:26)
[2024-04-21 04:25] LABS: Hematocrit 23.5 % (37.0-47.0); Hemoglobin 7.8 g/dL (12.0-16.0); Mean Corp Hgb Conc. 33.2 g/dL (33.0-37.0); Mean Corpuscular Hgb 29.5 pg (27.0-31.0); Mean Platelet Volume 10.3 fL (7.4-10.4); Platelet Count 485 10^3/uL (130-400); Red Blood Cell Count 2.64 10^6/uL (4.20-5.40); Red Cell Dist. Width 13.9 % (11.5-14.5); White Blood Cell Count 6.8 10^3/uL (4.8-10.8)
[2024-04-21 04:53] LABS: ALT (SGPT) 36 U/L (0-35); AST (SGOT) 27 U/L (14-36); Albumin 2.5 g/dl (3.5-5.0); Alkaline Phosphatase 61 U/L (38-126); Blood Urea Nitrogen 6 mg/dl (7-17); Calcium 8.7 mg/dl (8.4-10.2); Carbon Dioxide 28 mmol/L (22-30); Chloride 105 mmol/L (98-107); Estimated Creatinine Clearance 81 ml/min; Glucose 111 mg/dl (70-99); Magnesium 2.1 mg/dl (1.6-2.3); Phosphorus 3.4 mg/dl (2.5-4.5); Potassium 3.7 mmol/L (3.5-5.1); Sodium 137 mmol/L (135-145); Total Bilirubin 0.3 mg/dl (0.2-1.3); Total Protein 4.9 g/dl (6.3-8.2); eGFR > 60.00
[2024-04-21 04:58] LABS: Prealbumin (Transthyretin) 11.4 mg/dl (17.6-36.0)
[2024-04-21 06:00] VITALS: BMI 32.4
[2024-04-21 06:06] LABS: Glucose - Point of Care 131 mg/dl (70-99)
--- NOTE | 2024-04-21 08:16 | W.PN.GS2 ---
Today's Communication / Plan
-
-- TPN
Assessment / Plan
-
Assessment: 69 yo F who presented 04/02/2024 with a 10-day history of epigastric abdominal pain, melena found to have an abscess on the lesser curve of her stomach concerning for perforation.
04/02 POD#19 EGD, laparoscopic modified Chaim patch repair and drainage of intra-abdominal abscess, for a perforated gastric ulcer. OR cultures positive for Streptococcus and Neisseria, path negative for atypia or H. pylori.
04/04 1 unit pRBC
04/05 UGI-negative for leak. NG tube removed and started on clears.
04/06 Advanced to FLD
04/07 Fevers: UA neg, CXR wnl, CT abd/pelvis:a persistent fluid collection underneath the left lobe of the liver adjacent to the lesser curvature of the stomach with the current surgical drain essentially going right into the middle of this bilobed
collection.
04/11 IR drain exchange, minimal outputs
04/13 POD#8 s/p RTOR lap drainage of intra-ab abscess.
04/16 UGI Recurrent small leak with contrast pooling more cranially
04/19 EGD with endoscopic stitch x2 for noted fistulous opening
-- NPO x3 days s/p EGD procedure. Ok for ice chips
-- UGI study on Tuesday if continues to progress
-- LFTs remain normal, continue TPN
-- Trend labs
-- Continue SHERIE
-- Abx: per ID
-- Pain control: Tylenol, Dilaudid IV prn breakthrough, no NSAIDs
-- PPI dosing as per GI
-- Lovenox for DVT ppx
Subjective Data
-
Date of Service: April 21, 2024
No complaints. Denies worsening abdominal pain. No fevers or chills. No nausea or vomiting
Objective Data
-
Intake and Output
04/20/24 04/21/2404/22/24
06:59 06:59 06:59
Intake Total 2160 / 2160 1580 / 1580
Output Total 700 / 700
Balance 1460 / 1460 1580 / 1580
Intake:
IV fluids (Total) 1680 / 1680 960 / 960
IV piggybacks 480 / 480 240 / 240
Lipids 380 / 380
Output:
Drain Output (Total) 50 / 50
Right Lower Abdomen 50 / 50
Urine, Voided 650 / 650
Other:
Number of approximated MODERATE 1 2
amounts of urine
Vital Signs
Temp Pulse Resp BP Pulse Ox
97.8 F 56 16 134/67 97
04/20/24 23:40 04/20/24 23:40 04/20/24 23:40 04/20/24 23:40 04/20/24 23:40
Lab Results
04/21/24 04:07
04/21/24 04:07
Calcium 8.7 mg/dl (8.4-10.2) 04/21/24 04:07
Phosphorus 3.4 mg/dl (2.5-4.5) 04/21/24 04:07
Magnesium 2.1 mg/dl (1.6-2.3) 04/21/24 04:07
Total Bilirubin 0.3 mg/dl (0.2-1.3) 04/21/24 04:07
Direct Bilirubin 0.3 mg/dl (0.0-0.4) 04/10/24 04:38
AST 27 U/L (14-36) 04/21/24 04:07
ALT 36 U/L (0-35) H 04/21/24 04:07
Alkaline Phosphatase 61 U/L (38-126) 04/21/24 04:07
Total Protein 4.9 g/dl (6.3-8.2) L 04/21/24 04:07
Albumin 2.5 g/dl (3.5-5.0) L 04/21/24 04:07
Physical Exam
-
Gen: NAD
Abd: soft, NT/ND, incisions c/d/i - no erythema, ecchymosis or drainage, SHERIE serous
[2024-04-21 08:18] VITALS: BP 129/89
--- NOTE | 2024-04-21 08:22 | W.PN.GI.CBS2 ---
Today's Communication / Plan
-
Please see assessment plan for details.
Assessment / Plan
-
1. Gastric ulcer: With perforation, abscess and fistula, status post Chaim patch with persistent leak, now status post EGD that showed ulceration with fistulous opening, no evidence of malignancy, status post endoscopic stitch x 2, overall doing
well. Will continue high-dose PPI, supportive care, plan Gastrografin upper GI on Tuesday and if okay can start clears and advance as tolerated.
Subjective
Subjective
Date of Service: April 21, 2024
Patient overall feeling better, did have some nausea after TPN restarted, though no pain, no significant SHERIE output. No fevers or chills.
Objective
Data Reviewed
Laboratory Data:
Laboratory Results
04/21/24 04:07
04/21/24 04:07
Laboratory Results
Phosphorus 3.4 mg/dl (2.5-4.5) 04/21/24 04:07
Magnesium 2.1 mg/dl (1.6-2.3) 04/21/24 04:07
Total Bilirubin 0.3 mg/dl (0.2-1.3) 04/21/24 04:07
AST 27 U/L (14-36) 04/21/24 04:07
ALT 36 U/L (0-35) H 04/21/24 04:07
Alkaline Phosphatase 61 U/L (38-126) 04/21/24 04:07
Lipase 91 U/L (23-300) 04/02/24 09:32
Vital Signs and I&O:
Vital Signs
Temp Pulse Resp BP Pulse Ox
98.8 F 58 18 129/89 98
04/21/24 08:18 04/21/24 08:18 04/21/24 08:18 04/21/24 08:18 04/21/24 08:18
I&O
04/20/24 04/21/2404/22/24
06:59 06:59 06:59
Intake Total 2160 / 2160 1580 / 1580
Output Total 700 / 700
Balance 1460 / 1460 1580 / 1580
Physical Exam
Physical Exam
General: NAD
Abdomen: normal bowel sounds, soft, no tenderness, no masses or bruits, no ascites
[2024-04-21] MEDS: PROTONIX IV 40 MG IV ×2 (08:33→20:58)
[2024-04-21] MEDS: NSS (PRESERVATIVE FREE) 10 ML IV ×2 (08:34→20:58)
--- NOTE | 2024-04-21 10:35 | W.PN.HOSP.TC ---
Today's Communication/Plan
-
continue TPN
follow labs
Assessment / Plan
Assessment / Plan
EGD:
- Normal esophagus.
- Gastric fistula. Endosuture performed with good
approximation.
- Normal duodenal bulb, first portion of the duodenum
and second portion of the duodenum.
- No specimens collected.
A/P:
#Sepsis due to acute perforated gastric ulcer/intra-abdominal abscess - hemodynamically stable. Underwent washout of abdominal abscess 04/02.
Blood cultures positive for Peptostrep asaccharolyticus. Fluid culture from the OR abdominal fluid positive for Streptococcus, Neisseria, Haemophilus parainfluenza.
Continue IV Unasyn per ID recommendations
Appreciated surgery consult and follow-up.
GI consulted. Appreciate GI consult and follow-up.
GI s/p EGD 04/19 and results as above.
Continue NPO. Pt on TPN
Recommended continue PPI.
Pain control
Plan to do upper Gastrografin GI study on Tuesday with consideration to start clears based on study
Prior to today:
Repeat CT abdomen pelvis 04/07 shows a second small fluid and air collection in the abdomen, as well as a fluid and air collection along the right lateral and inferior margin of the liver.
Mild leukocytosis and fever noted.
Single contrast upper GI series performed on April 05 was normal with no extravasation.
H. pylori negative based on path report. Continue twice daily Protonix.
Was formerly on IV ertapenem per infectious disease then switch to p.o. Augmentin +Cipro and now on IV Unasyn. Micafungin stopped
Status post with drain exchange and manipulation status post 10 cc of purulent appearing fluid sent for microbiology..
Status post diagnostic laparoscopy with washout of intra-abdominal abscess and new SHERIE drain placement on 04/13
Per GI series 04/16/24-limited study with nonionic contrast Findings compatible with small volume leak most likely at the level of the distal stomach extending along a 'tract' superiorly.
Alb 2.5
Prealbumin 11.4
#Diarrhea- as per pt , better , if gets worse check C diff
#Leukocytosis -Resolved
#Acute on chronic normocytic anemia -acute postop anemia likely due to operative blood loss, as well as gastric ulcer related GI bleed. Component of hemodilution from IV fluids possible. Hemoglobin stable. transfused 1 unit of blood on April 04.
May need one more if continues to drop. Check iron studies
#Hyponatremia -resolved.
Anemia
Has received 1 unit PRBC since admission, Hgb ranging between 7.7-8.8 past week, today 7.8, consider transfusion if drops below 7.5, will need to T&S if needs transfusion
#Elevated transaminases -likely reactive and due to abdominal process/sepsis/?TPN.
Transaminases continue to improve.
Hold statin.
Trend for now. Possibly due to TPN as improvement noted with discontinuation of it
#Essential hypertension-episode of hypotension after receiving dose of lisinopril. Blood pressure overall seems well-controlled.
Off lisinopril 10 mg for now, monitor off.
#Hyperlipidemia -on simvastatin at home. Hold for elevated transaminases.
#Obesity due to excess calories
#Diverticulosis
#Anxiety/depression-Hold Celexa-restart when can take p.o.
#Stable pulmonary nodules dating back to 02/08/2020, consistent with benign etiologies.
#Hypoalbuminemia
#DVT Prophylaxis-Lovenox
#Full code
Anticipated Discharge: > 48 hours
Subjective/Interval History
-
Date of Service: April 21, 2024
Awake, alert, conversant
Objective Data
-
Labs:
Laboratory Results
04/21/24
04:07
WBC 6.8
Hgb 7.8 L
Hct 23.5 L
Plt Count 485 H D
Sodium 137
Potassium 3.7
Chloride 105
Carbon Dioxide 28
BUN 6 L
Creatinine 0.6
Glucose 111 H
Calcium 8.7
Total Bilirubin 0.3
AST 27
ALT 36 H
Alkaline Phosphatase 61
Vital Signs:
Vital Signs
Temp Pulse Resp BP Pulse Ox
98.8 F 58 18 129/89 98
04/21/24 08:18 04/21/24 08:18 04/21/24 08:18 04/21/24 08:18 04/21/24 08:18
I&O
04/20/24 04/21/24 04/22/24
06:59 06:59 06:59
Intake Total 2160 / 2160 1580 / 1580
Output Total 700 / 700
Balance 1460 / 1460 1580 / 1580
Review of Systems
-
History Source: Patient and Coordinated Provider
Constitutional: Denies Fever
Respiratory: Reports No Symptoms; Denies Cough or Trouble Breathing
Cardiac: Reports No Symptoms; Denies Chest Pain
Abdomen/GI: Denies Abdominal Pain (resolved) or Nausea (resolved)
Genitourinary: Reports No Symptoms
Neuro: Reports No Symptoms
Physical Exam
-
General: Well Developed, Well Nourished and No Apparent Distress
HEENT: Normocephalic, Atraumatic and Moist Mucous Membranes
Respiratory: Clear to Auscultation; Negative Wheezes, Rales or Rhonchi
Cardiac: Regular Rhythm and S1/S2
GI: Soft, Nontender and Nondistended
Musculoskeletal: No Clubbing, No Cyanosis and No Edema
[2024-04-21 11:53] LABS: Glucose - Point of Care 130 mg/dl (70-99)
[2024-04-21 15:44] VITALS: BP 115/59
[2024-04-21 16:39] LABS: Glucose - Point of Care 129 mg/dl (70-99)
[2024-04-21] MEDS: FLUSH (NSS) 2 FLUSH IV (16:39)
[2024-04-21] MEDS: LOVENOX 40 MG SC (17:34)
[2024-04-21] MEDS: CELEXA 20 MG PO (21:03)
[2024-04-21] MEDS: Parenteral Nutrition, Central 900 IV (21:07)
[2024-04-21 23:50] LABS: Glucose - Point of Care 128 mg/dl (70-99)
[2024-04-21 23:53] VITALS: BP 115/68
[2024-04-22] MEDS: TYLENOL 1000 MG PO ×2 (00:33→10:26)
[2024-04-22] MEDS: UNASYN IV ×4 (05:07→22:56)
[2024-04-22 06:00] VITALS: BMI 32.9
[2024-04-22 06:19] LABS: % Basophils 0.5 % (0-2); % Eosinophils 1.7 % (0-6); % Immature Granulocytes 0.9 % (0-0.5); % Lymphocytes 24.3 % (20.5-51.1); % Monocytes 9.8 % (1.7-9.3); % Neutrophils 62.8 % (42.2-75.2); Absolute Eosinophils 0.1 10^3/uL (0-0.7); Absolute Immature Granulocytes 0.1 10^3/uL (0-0.05); Absolute Lymphocytes 1.9 10^3/uL (1.2-3.4); Absolute Monocytes 0.8 10^3/uL (0.1-0.6); Absolute Neutrophils 4.9 10^3/uL (1.4-6.5); Hematocrit 25.8 % (37.0-47.0); Hemoglobin 8.3 g/dL (12.0-16.0); Mean Corp Hgb Conc. 32.2 g/dL (33.0-37.0); Mean Corpuscular Hgb 29.7 pg (27.0-31.0); Mean Corpuscular Volume 92.5 fL (81.0-99.0); Mean Platelet Volume 10.5 fL (7.4-10.4); Nucleated Red Blood Cells % 0 %; Platelet Count 429 10^3/uL (130-400); Red Blood Cell Count 2.79 10^6/uL (4.20-5.40); Red Cell Dist. Width 14.2 % (11.5-14.5); White Blood Cell Count 7.7 10^3/uL (4.8-10.8)
[2024-04-22 06:45] LABS: ALT (SGPT) 30 U/L (0-35); AST (SGOT) 25 U/L (14-36); Albumin 2.7 g/dl (3.5-5.0); Alkaline Phosphatase 61 U/L (38-126); Blood Urea Nitrogen 9 mg/dl (7-17); Calcium 8.4 mg/dl (8.4-10.2); Carbon Dioxide 31 mmol/L (22-30); Chloride 105 mmol/L (98-107); Estimated Creatinine Clearance 82 ml/min; Glucose 113 mg/dl (70-99); Magnesium 2.1 mg/dl (1.6-2.3); Phosphorus 4.2 mg/dl (2.5-4.5); Potassium 4.1 mmol/L (3.5-5.1); Sodium 139 mmol/L (135-145); Total Bilirubin 0.3 mg/dl (0.2-1.3); Total Protein 5.1 g/dl (6.3-8.2); eGFR > 60.00
[2024-04-22 06:51] LABS: Glucose - Point of Care 126 mg/dl (70-99)
[2024-04-22 07:44] VITALS: BP 137/71
[2024-04-22] MEDS: PROTONIX IV 40 MG IV ×2 (08:36→21:28)
[2024-04-22] MEDS: NSS (PRESERVATIVE FREE) 10 ML IV ×2 (08:37→21:28)
--- NOTE | 2024-04-22 09:34 | W.PN.GS2 ---
Today's Communication / Plan
-
-- NPO x3 days s/p EGD procedure. Ok for ice chips
-- UGI study on Tuesday/
-- LFTs remain normal, continue TPN
Assessment / Plan
-
Assessment: 69 yo F who presented 04/02/2024 with a 10-day history of epigastric abdominal pain, melena found to have an abscess on the lesser curve of her stomach concerning for perforation.
04/02 POD#20 EGD, laparoscopic modified Chaim patch repair and drainage of intra-abdominal abscess, for a perforated gastric ulcer. OR cultures positive for Streptococcus and Neisseria, path negative for atypia or H. pylori.
04/04 1 unit pRBC
04/05 UGI-negative for leak. NG tube removed and started on clears.
04/06 Advanced to FLD
04/07 Fevers: UA neg, CXR wnl, CT abd/pelvis:a persistent fluid collection underneath the left lobe of the liver adjacent to the lesser curvature of the stomach with the current surgical drain essentially going right into the middle of this bilobed
collection.
04/11 IR drain exchange, minimal outputs
04/13 POD#9 s/p RTOR lap drainage of intra-ab abscess.
04/16 UGI Recurrent small leak with contrast pooling more cranially
04/19 EGD with endoscopic stitch x2 for noted fistulous opening
-- NPO x3 days s/p EGD procedure. Ok for ice chips
-- UGI study on Tuesday/
-- LFTs remain normal, continue TPN
-- Trend labs
-- Continue SHERIE
-- Abx: per ID
-- Pain control: Tylenol, Dilaudid IV prn breakthrough, no NSAIDs
-- PPI dosing as per GI
-- Lovenox for DVT ppx
Subjective Data
-
Date of Service: April 22, 2024
No complaints. Denies worsening abdominal pain. No nausea or vomiting. Afebrile.
Objective Data
-
Intake and Output
04/21/24 04/22/24 04/23/24
06:59 06:59 06:59
Intake Total 1580 / 1580 1742 / 1742
Output Total 5 / 5
Balance 1580 / 1580 1737 / 1737
Intake:
IV fluids (Total) 960 / 960 350 / 350
IV piggybacks 240 / 240 480 / 480
TPN/PPN 912 / 912
Lipids 380 / 380
Output:
Drain Output (Total) 5 / 5
Right Lower Abdomen 5 / 5
Other:
Number of approximated MODERATE 2 1
amounts of urine
Vital Signs
Temp Pulse Resp BP Pulse Ox
98.3 F 60 12 137/71 93
04/22/24 07:44 04/22/24 07:44 04/22/24 07:44 04/22/24 07:44 04/22/24 07:44
Lab Results
04/22/24 06:07
04/22/24 06:07
Calcium 8.4 mg/dl (8.4-10.2) 04/22/24 06:07
Phosphorus 4.2 mg/dl (2.5-4.5) 04/22/24 06:07
Magnesium 2.1 mg/dl (1.6-2.3) 04/22/24 06:07
Total Bilirubin 0.3 mg/dl (0.2-1.3) 04/22/24 06:07
Direct Bilirubin 0.3 mg/dl (0.0-0.4) 04/10/24 04:38
AST 25 U/L (14-36) 04/22/24 06:07
ALT 30 U/L (0-35) 04/22/24 06:07
Alkaline Phosphatase 61 U/L (38-126) 04/22/24 06:07
Total Protein 5.1 g/dl (6.3-8.2) L 04/22/24 06:07
Albumin 2.7 g/dl (3.5-5.0) L 04/22/24 06:07
Physical Exam
-
Gen: NAD
Abd: soft, NT/ND, incisions c/d/i - no erythema, ecchymosis or drainage, SHERIE with fibroserous output
[2024-04-22 12:36] LABS: Glucose - Point of Care 124 mg/dl (70-99)
--- NOTE | 2024-04-22 13:35 | W.PN.HOSP.TC ---
Today's Communication/Plan
-
Gastrografin UGI tomorrow, potential advance diet to follow
Assessment / Plan
Assessment / Plan
EGD:
- Normal esophagus.
- Gastric fistula. Endosuture performed with good
approximation.
- Normal duodenal bulb, first portion of the duodenum
and second portion of the duodenum.
- No specimens collected.
A/P:
#Sepsis due to acute perforated gastric ulcer/intra-abdominal abscess - hemodynamically stable. Underwent washout of abdominal abscess 04/02.
Blood cultures positive for Peptostrep asaccharolyticus. Fluid culture from the OR abdominal fluid positive for Streptococcus, Neisseria, Haemophilus parainfluenza.
Continue IV Unasyn per ID recommendations
Appreciated surgery consult and follow-up.
GI consulted. Appreciate GI consult and follow-up.
GI s/p EGD 04/19 and results as above.
Continue NPO. Pt on TPN
Recommended continue PPI.
Pain control
Plan to do upper Gastrografin GI study on Tuesday with consideration to start clears based on study
Prior to today:
Repeat CT abdomen pelvis 04/07 shows a second small fluid and air collection in the abdomen, as well as a fluid and air collection along the right lateral and inferior margin of the liver.
Mild leukocytosis and fever resolved.
Single contrast upper GI series performed on April 05 was normal with no extravasation.
H. pylori negative based on path report. Continue twice daily Protonix.
Was formerly on IV ertapenem per infectious disease then switch to p.o. Augmentin +Cipro and now on IV Unasyn. Micafungin stopped
Status post with drain exchange and manipulation status post 10 cc of purulent appearing fluid sent for microbiology..
Status post diagnostic laparoscopy with washout of intra-abdominal abscess and new SHERIE drain placement on 04/13
Per GI series 04/16/24-limited study with nonionic contrast Findings compatible with small volume leak most likely at the level of the distal stomach extending along a 'tract' superiorly.
Alb 2.5
Prealbumin 11.4
#Diarrhea- as per pt , better , if gets worse check C diff
#Leukocytosis -Resolved
#Acute on chronic normocytic anemia -acute postop anemia likely due to operative blood loss, as well as gastric ulcer related GI bleed. Component of hemodilution from IV fluids possible. Hemoglobin stable. transfused 1 unit of blood on April 04.
May need one more if continues to drop. Check iron studies
#Hyponatremia -resolved.
Anemia
Has received 1 unit PRBC since admission, Hgb ranging between 7.7-8.8 past week, today 7.8, consider transfusion if drops below 7.5, will need to T&S if needs transfusion
#Elevated transaminases -likely reactive and due to abdominal process/sepsis/?TPN.
Transaminases continue to improve.
Hold statin.
Trend for now. Possibly due to TPN as improvement noted with discontinuation of it
#Essential hypertension-episode of hypotension after receiving dose of lisinopril. Blood pressure overall seems well-controlled.
Off lisinopril 10 mg for now, monitor off.
#Hyperlipidemia -on simvastatin at home. Hold for elevated transaminases.
#Obesity due to excess calories
#Diverticulosis
#Anxiety/depression-Hold Celexa-restart when can take p.o.
#Stable pulmonary nodules dating back to 02/08/2020, consistent with benign etiologies.
#Hypoalbuminemia
#DVT Prophylaxis-Lovenox
#Full code
Anticipated Discharge: 24 - 48 hours
Subjective/Interval History
-
Date of Service: April 22, 2024
Passing flatus, no stool
Objective Data
-
Labs:
Laboratory Results
04/22/24
06:07
WBC 7.7
Hgb 8.3 L
Hct 25.8 L
Plt Count 429 H
Sodium 139
Potassium 4.1
Chloride 105
Carbon Dioxide 31 H
BUN 9
Creatinine 0.5 L
Glucose 113 H
Calcium 8.4
Total Bilirubin 0.3
AST 25
ALT 30
Alkaline Phosphatase 61
Vital Signs:
Vital Signs
Temp Pulse Resp BP Pulse Ox
98.3 F 60 12 137/71 93
04/22/24 07:44 04/22/24 07:44 04/22/24 07:44 04/22/24 07:44 04/22/24 07:44
I&O
04/21/24 04/22/24 04/23/24
06:59 06:59 06:59
Intake Total 1580 / 1580 1742 / 1742
Output Total
Balance 1580 / 1580 1737 / 1737
Review of Systems
-
History Source: Patient and Coordinated Provider
Constitutional: Denies Fever
Respiratory: Reports No Symptoms; Denies Cough or Trouble Breathing
Cardiac: Reports No Symptoms; Denies Chest Pain
Abdomen/GI: Reports Constipated; Denies Abdominal Pain (resolved) or Nausea (resolved)
Genitourinary: Reports No Symptoms
Neuro: Reports No Symptoms
Physical Exam
-
General: Well Developed, Well Nourished and No Apparent Distress
HEENT: Normocephalic, Atraumatic and Moist Mucous Membranes
Respiratory: Clear to Auscultation; Negative Wheezes, Rales or Rhonchi
Cardiac: Regular Rhythm and S1/S2
GI: Soft, Nontender, Nondistended and Normal Bowel Sounds
Musculoskeletal: No Clubbing, No Cyanosis and No Edema
[2024-04-22] MEDS: LOVENOX 40 MG SC (17:22)
[2024-04-22 17:35] LABS: Glucose - Point of Care 110 mg/dl (70-99)
[2024-04-22 17:40] VITALS: BP 130/57
[2024-04-22] MEDS: FLUSH (NSS) 2 FLUSH IV (21:28)
[2024-04-22] MEDS: Parenteral Nutrition, Central 900 IV (21:31)
[2024-04-22] MEDS: CELEXA 20 MG PO (22:56)
[2024-04-22] MEDS: FLUSH (NSS) 1 FLUSH IV (22:57)
[2024-04-22 23:00] VITALS: BP 140/74
[2024-04-22 23:35] LABS: Glucose - Point of Care 111 mg/dl (70-99)
[2024-04-23] MEDS: UNASYN IV ×4 (05:05→21:49)
[2024-04-23] MEDS: FLUSH (NSS) 2 FLUSH IV (05:06)
--- NOTE | 2024-04-23 05:51 | W.PN.GI.CBS2 ---
Today's Communication / Plan
-
See assessment and plan for details.
Assessment / Plan
-
1. Gastric ulcer: With perforation, abscess and fistula, status post Chaim patch with persistent leak, now status post EGD that showed ulceration with fistulous opening, no evidence of malignancy, status post endoscopic stitch x 2, overall doing
well. Will continue high-dose PPI, supportive care, plan Gastrografin upper GI today and if okay can start clears and advance as tolerated.
Subjective
Subjective
Date of Service: April 23, 2024
Patient feeling well, no abdominal pain, nausea or vomiting, fever or chills.
Objective
Data Reviewed
Laboratory Data:
Laboratory Results
Phosphorus 4.2 mg/dl (2.5-4.5) 04/22/24 06:07
Magnesium 2.1 mg/dl (1.6-2.3) 04/22/24 06:07
Total Bilirubin 0.3 mg/dl (0.2-1.3) 04/22/24 06:07
AST 25 U/L (14-36) 04/22/24 06:07
ALT 30 U/L (0-35) 04/22/24 06:07
Alkaline Phosphatase 61 U/L (38-126) 04/22/24 06:07
Lipase 91 U/L (23-300) 04/02/24 09:32
Vital Signs and I&O:
Vital Signs
Temp Pulse Resp BP Pulse Ox
98.4 F 52 16 140/74 96
04/22/24 23:00 04/22/24 23:00 04/22/24 23:00 04/22/24 23:00 04/22/24 23:00
I&O
04/21/24 04/22/24 04/23/24
06:59 06:59 06:59
Intake Total 1580 / 1580 1742 / 1742 696 / 696
Output Total
Balance 1580 / 1580 1737 / 1737 681 / 681
Physical Exam
Physical Exam
General: NAD
Abdomen: normal bowel sounds, soft, no tenderness, no masses or bruits, no ascites
[2024-04-23 06:00] VITALS: BMI 31.5
[2024-04-23 06:00] LABS: Glucose - Point of Care 104 mg/dl (70-99)
[2024-04-23 06:04] LABS: Hematocrit 26.5 % (37.0-47.0); Hemoglobin 8.6 g/dL (12.0-16.0); Mean Corp Hgb Conc. 32.5 g/dL (33.0-37.0); Mean Corpuscular Hgb 29.6 pg (27.0-31.0); Mean Corpuscular Volume 91.1 fL (81.0-99.0); Mean Platelet Volume 11.1 fL (7.4-10.4); Platelet Count 432 10^3/uL (130-400); Red Blood Cell Count 2.91 10^6/uL (4.20-5.40); Red Cell Dist. Width 14.4 % (11.5-14.5); White Blood Cell Count 6.1 10^3/uL (4.8-10.8)
[2024-04-23 06:35] LABS: ALT (SGPT) 31 U/L (0-35); AST (SGOT) 24 U/L (14-36); Albumin 2.7 g/dl (3.5-5.0); Alkaline Phosphatase 64 U/L (38-126); Blood Urea Nitrogen 10 mg/dl (7-17); Calcium 8.7 mg/dl (8.4-10.2); Carbon Dioxide 28 mmol/L (22-30); Chloride 106 mmol/L (98-107); Estimated Creatinine Clearance 83 ml/min; Glucose 99 mg/dl (70-99); Magnesium 2.3 mg/dl (1.6-2.3); Phosphorus 4.7 mg/dl (2.5-4.5); Potassium 4.3 mmol/L (3.5-5.1); Sodium 140 mmol/L (135-145); Total Bilirubin 0.3 mg/dl (0.2-1.3); Total Protein 5.4 g/dl (6.3-8.2); eGFR > 60.00
[2024-04-23] MEDS: PROTONIX IV 40 MG IV ×2 (08:01→19:41)
[2024-04-23] MEDS: NSS (PRESERVATIVE FREE) 10 ML IV ×2 (08:02→19:41)
--- NOTE | 2024-04-23 08:27 | W.PN.GS2 ---
Today's Communication / Plan
-
-- UGI
Assessment / Plan
-
Assessment: 69 yo F who presented 04/02/2024 with a 10-day history of epigastric abdominal pain, melena found to have an abscess on the lesser curve of her stomach concerning for perforation.
04/02 POD#21 EGD, laparoscopic modified Chaim patch repair and drainage of intra-abdominal abscess, for a perforated gastric ulcer. OR cultures positive for Streptococcus and Neisseria, path negative for atypia or H. pylori.
04/04 1 unit pRBC
04/05 UGI-negative for leak. NG tube removed and started on clears.
04/06 Advanced to FLD
04/07 Fevers: UA neg, CXR wnl, CT abd/pelvis:a persistent fluid collection underneath the left lobe of the liver adjacent to the lesser curvature of the stomach with the current surgical drain essentially going right into the middle of this bilobed
collection.
04/11 IR drain exchange, minimal outputs
04/13 POD#10 s/p RTOR lap drainage of intra-ab abscess.
04/16 UGI Recurrent small leak with contrast pooling more cranially
04/19 EGD with endoscopic stitch x2 for noted fistulous opening
-- NPO x3 days s/p EGD procedure. Ok for ice chips
-- UGI today
-- LFTs remain normal, continue TPN
-- Trend labs
-- Continue SHERIE
-- Abx: per ID
-- Pain control: Tylenol, Dilaudid IV prn breakthrough, no NSAIDs
-- PPI dosing as per GI
-- Lovenox for DVT ppx
Subjective Data
-
Date of Service: April 23, 2024
No complaints. Denies abdominal pain. No nausea or vomiting. No fevers.
Objective Data
-
Intake and Output
06/02/24 06/03/24 06/04/24
06:59 06:59 06:59
Intake Total 1742 / 1742 1386 / 1386
Output Total
Balance 1737 / 1737 1371 / 1371
Intake:
IV fluids (Total) 350 / 350
IV piggybacks 480 / 480 480 / 480
TPN/PPN 912 / 912 906 / 906
Output:
Drain Output (Total)
Right Lower Abdomen
Other:
Number of approximated MODERATE 1 2
amounts of urine
Vital Signs
Temp Pulse Resp BP Pulse Ox
98.4 F 52 16 140/74 96
04/22/24 23:00 04/22/24 23:00 04/22/24 23:00 04/22/24 23:00 04/22/24 23:00
Lab Results
04/23/24 05:05
04/23/24 05:05
Calcium 8.7 mg/dl (8.4-10.2) 04/23/24 05:05
Phosphorus 4.7 mg/dl (2.5-4.5) H 04/23/24 05:05
Magnesium 2.3 mg/dl (1.6-2.3) 04/23/24 05:05
Total Bilirubin 0.3 mg/dl (0.2-1.3) 04/23/24 05:05
Direct Bilirubin 0.3 mg/dl (0.0-0.4) 04/10/24 04:38
AST 24 U/L (14-36) 04/23/24 05:05
ALT 31 U/L (0-35) 04/23/24 05:05
Alkaline Phosphatase 64 U/L (38-126) 04/23/24 05:05
Total Protein 5.4 g/dl (6.3-8.2) L 04/23/24 05:05
Albumin 2.7 g/dl (3.5-5.0) L 04/23/24 05:05
Physical Exam
-
Gen: NAD
Abd: soft, NT/ND, incisions c/d/i - no erythema, ecchymosis or drainage, SHERIE seropurulent
--- NOTE | 2024-04-23 08:46 | W.PN.HOSP.TC ---
Today's Communication/Plan
-
UGI.
Assessment / Plan
Assessment / Plan
Physical exam:
General: Well Developed, Well Nourished and No Apparent Distress
HEENT: Normocephalic, Atraumatic and Moist Mucous Membranes
Respiratory: Clear to Auscultation; Negative Wheezes, Rales or Rhonchi
Cardiac: Regular Rhythm and S1/S2
GI: Soft, Nontender, Postop findings and Nondistended
Musculoskeletal: No Clubbing, No Cyanosis and No Edema
Neuro: Awake, Alert and Oriented
Psych: Calm
A/P:
EGD:
- Normal esophagus.
- Gastric fistula. Endosuture performed with good
approximation.
- Normal duodenal bulb, first portion of the duodenum
and second portion of the duodenum.
- No specimens collected.
A/P:
#Sepsis due to acute perforated gastric ulcer/intra-abdominal abscess - hemodynamically stable. Underwent washout of abdominal abscess 04/02.
Blood cultures positive for Peptostrep asaccharolyticus. Fluid culture from the OR abdominal fluid positive for Streptococcus, Neisseria, Haemophilus parainfluenza.
Continue IV Unasyn per ID recommendations
Appreciated surgery consult and follow-up.
GI consulted. Appreciate GI consult and follow-up.
GI s/p EGD 04/19 and results as above.
Continue NPO. Pt on TPN
Recommended continue PPI.
Pain control
Plan to do upper Gastrografin GI study today with consideration to start clears based on study--->Results are favorable so we will start diet today.
#Diarrhea-improved. C. difficile negative on 04/08.
#Leukocytosis -Resolved
#Acute on chronic normocytic anemia -acute postop anemia likely due to operative blood loss, as well as gastric ulcer related GI bleed. Component of hemodilution from IV fluids possible. Hemoglobin stable. transfused 1 unit of blood on April 04.
May need one more if continues to drop. Check iron studies
#Hyponatremia -resolved.
Anemia
Status post blood transfusion
Today stable at 8.6
#Elevated transaminases
likely reactive and due to abdominal process/sepsis/TPN/statins.
LFTs back to normal
#Essential hypertension
-episode of hypotension after receiving dose of lisinopril. Blood pressure overall seems well-controlled.
-Off lisinopril 10 mg for now, monitor off.
#Hyperlipidemia -on simvastatin at home. Held for elevated transaminases.
#Obesity due to excess calories
#Diverticulosis
#Anxiety/depression-Hold Celexa-restart when can take p.o.
#Stable pulmonary nodules dating back to 02/08/2020, consistent with benign etiologies.
#Hypoalbuminemia
#DVT Prophylaxis-Lovenox
#Full code
Anticipated Discharge: > 48 hours
Subjective/Interval History
-
Date of Service: April 23, 2024
Patient denies abdominal pain nausea or vomiting. No bowel movement. Afebrile
Objective Data
-
Labs:
Laboratory Results
04/23/24
05:05
WBC 6.1
Hgb 8.6 L
Hct 26.5 L
Plt Count 432 H
Sodium 140
Potassium 4.3
Chloride 106
Carbon Dioxide 28
BUN 10
Creatinine 0.5 L
Glucose 99
Calcium 8.7
Total Bilirubin 0.3
AST 24
ALT 31
Alkaline Phosphatase 64
Vital Signs:
Vital Signs
Temp Pulse Resp BP Pulse Ox
98.4 F 52 16 140/74 96
04/22/24 23:00 04/22/24 23:00 04/22/24 23:00 04/22/24 23:00 04/22/24 23:00
I&O
04/22/24 04/23/24 04/24/24
06:59 06:59 06:59
Intake Total 1742 / 1742 1386 / 1386
Output Total
Balance 1737 / 1737 1371 / 1371
[2024-04-23 12:34] LABS: Glucose - Point of Care 98 mg/dl (70-99)
[2024-04-23 15:45] VITALS: BP 117/73
[2024-04-23] MEDS: LOVENOX 40 MG SC (17:21)
[2024-04-23 17:30] LABS: Glucose - Point of Care 100 mg/dl (70-99)
--- NOTE | 2024-04-23 17:31 | W.PN.ID1 ---
Date of Service
Date of Service: April 23, 2024
Today's Communication
Continue Unasyn for today, likely switch to augmentin tomorrow
Assessment / Plan
Intraabdominal abscess s/p washout
- Perforated gastric ulcer s/p Chaim patch
- Neisseria ID'd as 'saprophytic' (not N. gonorrhoeae�or�N. meningitidis).
- 04/13 OR Neisseria, H parainfluenzae, strep
- upper GI series - leak noted with drainage into vicinity of catheter
- note consideration of endoscopic clip later today
- Continue Unasyn for today, likely switch to augmentin tomorrow
- fever and leukocytosis resolved
Chief Complaint
-: Other (abdominal abscess)
Subjective / Review of Systems
afebrile
bp stable
tolerating cld
no leak on the study
Vital Signs / Physical Exam
Vital Signs
Vital Signs
Temp Pulse Resp BP Pulse Ox
98.4 F 52 16 140/74 96
04/22/24 23:00 04/22/24 23:00 04/22/24 23:00 04/22/24 23:00 04/22/24 23:00
Physical Exam
Constitutional: No Acute Distress
Cardiovascular: Regular Rate and S1/S2; Negative Murmur or Rub
Pulmonary: Clear and Symmetric; Negative Wheezes or Rales
Gastrointestinal: Soft, Non Tender, Non Distended and Normal Bowel Sounds
Skin: Warm and Dry; Negative Rash or Jaundice
Objective Data
Lab Data
Lab Results
04/23/24 05:05
04/23/24 05:05
Estimated Creat Clear 83 ml/min 04/23/24 05:05
Lactic Acid 1.2 mmol/L (0.7-2.0) 04/02/24 11:20
Total Bilirubin 0.3 mg/dl (0.2-1.3) 04/23/24 05:05
GGT 80 U/L (12-43) H 04/10/24 04:38
AST 24 U/L (14-36) 04/23/24 05:05
ALT 31 U/L (0-35) 04/23/24 05:05
Alkaline Phosphatase 64 U/L (38-126) 04/23/24 05:05
Most recent labs reviewed.
Micro Results:
04/14/24 11:11 Fungal Culture - Preliminary
Abdomen Culture in progress.
Positive cultures are reported as soon as detected.
Final report to follow in four to five weeks.
04/14/24 11:12 Wound Culture - Final
Abscess Neisseria species
Haemophilus parainfluenzae
Strep species,not Enterococcus
Gram Stain - Final
04/11/24 15:25 Wound Culture - Final
Abscess Gram Stain - Final
04/08/24 12:28 Blood Culture - Final
Blood/Venous No Growth - Final Report
04/08/24 10:04 Blood Culture - Final
Blood/Venous No Growth - Final Report
04/02/24 11:27 Blood Culture - Final
Blood/Venous Peptostrep. asaccharolyticus
Gram Stain - Final
04/08/24 18:24 C. difficile GDH Antigen & Toxins - Final
Feces/Stool Negative for toxigenic C.difficile
04/02/24 18:17 Wound Culture - Final
Abscess Group F Streptococcus
Neisseria species
Gram Stain - Final
04/02/24 11:20 Blood Culture - Final
Blood/Venous No Growth - Final Report
04/02/24 18:17 Anaerobic Culture - Final
Abscess
04/02/24 19:42 Tissue Culture - Final
Abdomen Group F Streptococcus
Gram Stain - Final
[2024-04-23] MEDS: FLUSH (NSS) 1 FLUSH IV (19:43)
[2024-04-23] MEDS: Parenteral Nutrition, Central 1210 IV (21:09)
[2024-04-23] MEDS: CELEXA 20 MG PO (21:20)
[2024-04-23 23:00] VITALS: BP 131/74
[2024-04-24 00:11] LABS: Glucose - Point of Care 126 mg/dl (70-99)
[2024-04-24] MEDS: UNASYN IV ×2 (04:31→09:16)
[2024-04-24 04:56] LABS: Hematocrit 27.7 % (37.0-47.0); Mean Corp Hgb Conc. 32.5 g/dL (33.0-37.0); Mean Corpuscular Hgb 29.6 pg (27.0-31.0); Mean Corpuscular Volume 91.1 fL (81.0-99.0); Mean Platelet Volume 10.9 fL (7.4-10.4); Platelet Count 394 10^3/uL (130-400); Red Blood Cell Count 3.04 10^6/uL (4.20-5.40); Red Cell Dist. Width 14.6 % (11.5-14.5)
[2024-04-24 05:13] LABS: Glucose - Point of Care 114 mg/dl (70-99)
[2024-04-24 05:27] LABS: ALT (SGPT) 38 U/L (0-35); AST (SGOT) 29 U/L (14-36); Albumin 2.8 g/dl (3.5-5.0); Blood Urea Nitrogen 10 mg/dl (7-17); Calcium 8.9 mg/dl (8.4-10.2); Carbon Dioxide 27 mmol/L (22-30); Estimated Creatinine Clearance 81 ml/min; Glucose 110 mg/dl (70-99); Magnesium 2.3 mg/dl (1.6-2.3); Potassium 4.1 mmol/L (3.5-5.1); Sodium 139 mmol/L (135-145); Total Bilirubin 0.4 mg/dl (0.2-1.3); Total Protein 5.4 g/dl (6.3-8.2); eGFR > 60.00
[2024-04-24 05:35] LABS: Alkaline Phosphatase 68 U/L (38-126); Chloride 107 mmol/L (98-107); Phosphorus 4.8 mg/dl (2.5-4.5)
[2024-04-24 05:54] VITALS: BMI 30.8
[2024-04-24 06:55] VITALS: BP 104/63
--- NOTE | 2024-04-24 08:06 | W.PN.HOSP.TC ---
Today's Communication/Plan
-
Advance diet. Change antibiotics to oral.
Assessment / Plan
Assessment / Plan
Physical exam:
General: Well Developed, Well Nourished and No Apparent Distress
HEENT: Normocephalic, Atraumatic and Moist Mucous Membranes
Respiratory: Clear to Auscultation; Negative Wheezes, Rales or Rhonchi
Cardiac: Regular Rhythm and S1/S2
GI: Soft, Nontender, Postop findings and Nondistended
Musculoskeletal: No Clubbing, No Cyanosis and No Edema
Neuro: Awake, Alert and Oriented
Psych: Calm
A/P:
EGD:
- Normal esophagus.
- Gastric fistula. Endosuture performed with good
approximation.
- Normal duodenal bulb, first portion of the duodenum
and second portion of the duodenum.
- No specimens collected.
A/P:
#Sepsis due to acute perforated gastric ulcer/intra-abdominal abscess - hemodynamically stable. Underwent washout of abdominal abscess 04/02.
Blood cultures positive for Peptostrep asaccharolyticus. Fluid culture from the OR abdominal fluid positive for Streptococcus, Neisseria, Haemophilus parainfluenza.
Changed Abx to Augmentin today per ID. Continue until 04/28
Appreciated surgery consult and follow-up.
GI consulted. Appreciate GI consult and follow-up.
GI s/p EGD 04/19 and results as above.
Upper GI study no gastric leak--> started on clear liquid diet yesterday. Increase diet to low residue diet per surgery today.
Continue PPI
Might be able to wean TPN today
Discussed with family at bedside
Discharge planning once cleared by surgery.
#Diarrhea-improved. C. difficile negative on 04/08.
#Leukocytosis -Resolved
#Acute on chronic normocytic anemia -acute postop anemia likely due to operative blood loss, as well as gastric ulcer related GI bleed. Component of hemodilution from IV fluids possible. Hemoglobin stable. transfused 1 unit of blood on April 04.
May need one more if continues to drop. Check iron studies
#Hyponatremia -resolved.
Anemia
Status post blood transfusion
Today stable at 8.6
#Elevated transaminases
likely reactive and due to abdominal process/sepsis/TPN/statins.
LFTs back to normal
#Essential hypertension
-episode of hypotension after receiving dose of lisinopril. Blood pressure overall seems well-controlled.
-Off lisinopril 10 mg for now, monitor off.
#Hyperlipidemia -on simvastatin at home. Held for elevated transaminases.
#Obesity due to excess calories
#Diverticulosis
#Anxiety/depression-Hold Celexa-restart when can take p.o.
#Stable pulmonary nodules dating back to 02/08/2020, consistent with benign etiologies.
#Hypoalbuminemia
#DVT Prophylaxis-Lovenox
#Full code
Anticipated Discharge: 24 - 48 hours
Subjective/Interval History
-
Date of Service: April 24, 2024
Patient denies any abdominal pain nausea or vomiting.
Objective Data
-
Labs:
Laboratory Results
04/24/24
04:35
WBC 6.0
Hgb 9.0 L
Hct 27.7 L
Plt Count 394
Sodium 139
Potassium 4.1
Chloride 107
Carbon Dioxide 27
BUN 10
Creatinine 0.6
Glucose 110 H
Calcium 8.9
Total Bilirubin 0.4
AST 29
ALT 38 H
Alkaline Phosphatase 68
Vital Signs:
Vital Signs
Temp Pulse Resp BP Pulse Ox
98.1 F 70 17 104/63 97
04/24/24 06:55 04/24/24 06:55 04/24/24 06:55 04/24/24 06:55 04/24/24 06:55
I&O
04/23/24 04/24/24 04/25/24
06:59 06:59 06:59
Intake Total 1386 / 1386 800 / 800
Output Total
Balance 1371 / 1371 795 / 795
--- NOTE | 2024-04-24 08:28 | W.PN.GS2 ---
Today's Communication / Plan
-
-- LRD
-- Plan to stop TPN for today
-- Abx: per ID, will need to discuss outpatient management
Assessment / Plan
-
Assessment: 69 yo F who presented 04/02/2024 with a 10-day history of epigastric abdominal pain, melena found to have an abscess on the lesser curve of her stomach concerning for perforation.
04/02 POD#22 EGD, laparoscopic modified Chaim patch repair and drainage of intra-abdominal abscess, for a perforated gastric ulcer. OR cultures positive for Streptococcus and Neisseria, path negative for atypia or H. pylori.
04/04 1 unit pRBC
04/05 UGI-negative for leak. NG tube removed and started on clears.
04/06 Advanced to FLD
04/07 Fevers: UA neg, CXR wnl, CT abd/pelvis:a persistent fluid collection underneath the left lobe of the liver adjacent to the lesser curvature of the stomach with the current surgical drain essentially going right into the middle of this bilobed
collection.
04/11 IR drain exchange, minimal outputs
04/13 POD#11 s/p RTOR lap drainage of intra-ab abscess.
04/16 UGI Recurrent small leak with contrast pooling more cranially
04/19 EGD with endoscopic stitch x2 for noted fistulous opening
04/23 UGI no leak
Clinically doing well
-- LRD
-- Plan to stop TPN for today
-- Trend labs
-- Continue SHERIE
-- Abx: per ID, will need to discuss outpatient management
-- Pain control: Tylenol, Dilaudid IV prn breakthrough, no NSAIDs
-- PPI dosing as per GI
-- Lovenox for DVT ppx
Subjective Data
-
Date of Service: April 24, 2024
No complaints. Denies worsening abdominal pain. Denies nausea or vomiting. No fevers.
Objective Data
-
Intake and Output
04/23/24 04/24/24 04/25/24
06:59 06:59 06:59
Intake Total 1386 / 1386 800 / 800
Output Total
Balance 1371 / 1371 795 / 795
Intake:
IV piggybacks 480 / 480 240 / 240
TPN/PPN 906 / 906 560 / 560
Output:
Drain Output (Total)
Right Lower Abdomen
Other:
Number of approximated MODERATE 2 3
amounts of urine
Vital Signs
Temp Pulse Resp BP Pulse Ox
98.1 F 70 17 104/63 97
04/24/24 06:55 04/24/24 06:55 04/24/24 06:55 04/24/24 06:55 04/24/24 06:55
Lab Results
04/24/24 04:35
04/24/24 04:35
Calcium 8.9 mg/dl (8.4-10.2) 04/24/24 04:35
Phosphorus 4.8 mg/dl (2.5-4.5) H 04/24/24 04:35
Magnesium 2.3 mg/dl (1.6-2.3) 04/24/24 04:35
Total Bilirubin 0.4 mg/dl (0.2-1.3) 04/24/24 04:35
Direct Bilirubin 0.3 mg/dl (0.0-0.4) 04/10/24 04:38
AST 29 U/L (14-36) 04/24/24 04:35
ALT 38 U/L (0-35) H 04/24/24 04:35
Alkaline Phosphatase 68 U/L (38-126) 04/24/24 04:35
Total Protein 5.4 g/dl (6.3-8.2) L 04/24/24 04:35
Albumin 2.8 g/dl (3.5-5.0) L 04/24/24 04:35
Physical Exam
-
Gen: NAD
Abd: soft, NT/ND, incisions well healed, SHERIE with minimal fibroserous output
[2024-04-24] MEDS: PROTONIX IV 40 MG IV ×2 (09:15→20:59)
[2024-04-24] MEDS: NSS (PRESERVATIVE FREE) 10 ML IV ×2 (09:15→20:58)
--- NOTE | 2024-04-24 09:46 | W.PN.ID1 ---
Date of Service
Date of Service: April 24, 2024
Today's Communication
- switch to augmentin to continue for 10 days post endoscopy clip - this will be through saturday 04/28
- follow up with PCP
Assessment / Plan
Intraabdominal abscess s/p washout
- switch to augmentin to continue for 10 days post endoscopy clip - this will be through saturday 04/28
- follow up with PCP
Chief Complaint
-: Other (abdominal abscess)
Subjective / Review of Systems
afebrile
bp stable
without leukocytosis
cr stable
minimally elevated alt
in great spirits
eating her first normal meal
Vital Signs / Physical Exam
Vital Signs
Vital Signs
Temp Pulse Resp BP Pulse Ox
98.1 F 70 17 104/63 97
04/24/24 06:55 04/24/24 06:55 04/24/24 06:55 04/24/24 06:55 04/24/24 06:55
Physical Exam
Constitutional: No Acute Distress
Cardiovascular: Regular Rate and S1/S2; Negative Murmur or Rub
Pulmonary: Clear and Symmetric; Negative Wheezes or Rales
Gastrointestinal: Soft, Non Tender, Non Distended and Normal Bowel Sounds
Skin: Warm and Dry; Negative Rash or Jaundice
Objective Data
Lab Data
Lab Results
04/24/24 04:35
04/24/24 04:35
Estimated Creat Clear 81 ml/min 04/24/24 04:35
Lactic Acid 1.2 mmol/L (0.7-2.0) 04/02/24 11:20
Total Bilirubin 0.4 mg/dl (0.2-1.3) 04/24/24 04:35
GGT 80 U/L (12-43) H 04/10/24 04:38
AST 29 U/L (14-36) 04/24/24 04:35
ALT 38 U/L (0-35) H 04/24/24 04:35
Alkaline Phosphatase 68 U/L (38-126) 04/24/24 04:35
Most recent labs reviewed.
Micro Results:
04/14/24 11:11 Fungal Culture - Preliminary
Abdomen Culture in progress.
Positive cultures are reported as soon as detected.
Final report to follow in four to five weeks.
04/14/24 11:12 Wound Culture - Final
Abscess Neisseria species
Haemophilus parainfluenzae
Strep species,not Enterococcus
Gram Stain - Final
04/11/24 15:25 Wound Culture - Final
Abscess Gram Stain - Final
04/08/24 12:28 Blood Culture - Final
Blood/Venous No Growth - Final Report
04/08/24 10:04 Blood Culture - Final
Blood/Venous No Growth - Final Report
04/02/24 11:27 Blood Culture - Final
Blood/Venous Peptostrep. asaccharolyticus
Gram Stain - Final
04/08/24 18:24 C. difficile GDH Antigen & Toxins - Final
Feces/Stool Negative for toxigenic C.difficile
04/02/24 18:17 Wound Culture - Final
Abscess Group F Streptococcus
Neisseria species
Gram Stain - Final
04/02/24 11:20 Blood Culture - Final
Blood/Venous No Growth - Final Report
04/02/24 18:17 Anaerobic Culture - Final
Abscess
04/02/24 19:42 Tissue Culture - Final
Abdomen Group F Streptococcus
Gram Stain - Final
Care Review
Plan reviewed with: Physician (Dr Morales - ernesto duration)
--- NOTE | 2024-04-24 10:09 | CM ---
PT OT indicate home with no needs VS home health .
As per care port [facility] accepted patient .
antibiotics changed to po form.
PLAN Home with [facility]
[2024-04-24 12:04] LABS: Glucose - Point of Care 116 mg/dl (70-99)
[2024-04-24 15:36] VITALS: BP 168/91
[2024-04-24] MEDS: LOVENOX 40 MG SC (17:13)
[2024-04-24] MEDS: AUGMENTIN 875 MG/125 MG 1 TABLET PO (17:13)
[2024-04-24 18:02] LABS: Glucose - Point of Care 111 mg/dl (70-99)
[2024-04-24] MEDS: CELEXA 20 MG PO (21:02)
[2024-04-24 23:38] VITALS: BP 128/72
[2024-04-25 05:27] VITALS: BMI 30.7
[2024-04-25 07:20] VITALS: BP 125/60
--- NOTE | 2024-04-25 08:13 | W.PN.HOSP.TC ---
Today's Communication/Plan
-
Discharge planning today
Assessment / Plan
Assessment / Plan
Physical exam:
General: Well Developed, Well Nourished and No Apparent Distress
HEENT: Normocephalic, Atraumatic and Moist Mucous Membranes
Respiratory: Clear to Auscultation; Negative Wheezes, Rales or Rhonchi
Cardiac: Regular Rhythm and S1/S2
GI: Soft, Nontender, Postop findings and Nondistended
Musculoskeletal: No Clubbing, No Cyanosis and No Edema
Neuro: Awake, Alert and Oriented
Psych: Calm
A/P:
EGD:
- Normal esophagus.
- Gastric fistula. Endosuture performed with good
approximation.
- Normal duodenal bulb, first portion of the duodenum
and second portion of the duodenum.
- No specimens collected.
A/P:
#Sepsis due to acute perforated gastric ulcer/intra-abdominal abscess - hemodynamically stable. Underwent washout of abdominal abscess 04/02.
Blood cultures positive for Peptostrep asaccharolyticus. Fluid culture from the OR abdominal fluid positive for Streptococcus, Neisseria, Haemophilus parainfluenza.
Changed Abx to Augmentin today per ID. Continue until 04/28
Appreciated surgery consult and follow-up.
GI consulted. Appreciate GI consult and follow-up.
GI s/p EGD 04/19 and results as above.
Upper GI study no gastric leak--> Increased diet to low residue diet per surgery since yesterday.
Continue PPI
Weaned TPN today
Discussed with family at bedside prior
Discharge planning today
#Diarrhea-improved. C. difficile negative on 04/08.
#Leukocytosis -Resolved
#Acute on chronic normocytic anemia -acute postop anemia likely due to operative blood loss, as well as gastric ulcer related GI bleed. Component of hemodilution from IV fluids possible. Hemoglobin stable. transfused 1 unit of blood on April 04.
May need one more if continues to drop. Check iron studies
#Hyponatremia -resolved.
Anemia
Status post blood transfusion
Today stable at 8.6
#Elevated transaminases
likely reactive and due to abdominal process/sepsis/TPN/statins.
LFTs back to normal
#Essential hypertension
-episode of hypotension after receiving dose of lisinopril. Blood pressure overall seems well-controlled.
-Off lisinopril 10 mg for now, monitor off.
#Hyperlipidemia -on simvastatin at home. Held for elevated transaminases.
#Obesity due to excess calories
#Diverticulosis
#Anxiety/depression-Hold Celexa-restart when can take p.o.
#Stable pulmonary nodules dating back to 02/08/2020, consistent with benign etiologies.
#Hypoalbuminemia
#DVT Prophylaxis-Lovenox
#Full code
Anticipated Discharge: Today
Subjective/Interval History
-
Date of Service: April 25, 2024
No new complaints. Seen along with the surgeon at bedside.
Objective Data
-
Vital Signs:
Vital Signs
Temp Pulse Resp BP Pulse Ox
98.4 F 61 18 125/60 98
04/25/24 07:20 04/25/24 07:20 04/25/24 07:20 04/25/24 07:20 04/25/24 07:20
I&O
04/24/24 04/25/24 04/26/24
06:59 06:59 06:59
Intake Total 800 / 800 0 / 2520
Output Total
Balance 795 / 795 2519 / 2520
[2024-04-25] MEDS: PROTONIX IV 40 MG IV (09:06)
[2024-04-25] MEDS: AUGMENTIN 875 MG/125 MG 1 TABLET PO (09:07)
[2024-04-25] MEDS: NSS (PRESERVATIVE FREE) 10 ML IV (09:07)
--- NOTE | 2024-04-25 11:20 | W.PN.GS2 ---
Today's Communication / Plan
-
DC
Assessment / Plan
-
Assessment: 69 yo F who presented 04/02/2024 with a 10-day history of epigastric abdominal pain, melena found to have an abscess on the lesser curve of her stomach concerning for perforation.
04/02 POD#23 EGD, laparoscopic modified Chaim patch repair and drainage of intra-abdominal abscess, for a perforated gastric ulcer. OR cultures positive for Streptococcus and Neisseria, path negative for atypia or H. pylori.
04/04 1 unit pRBC
04/05 UGI-negative for leak. NG tube removed and started on clears.
04/06 Advanced to FLD
04/07 Fevers: UA neg, CXR wnl, CT abd/pelvis:a persistent fluid collection underneath the left lobe of the liver adjacent to the lesser curvature of the stomach with the current surgical drain essentially going right into the middle of this bilobed
collection.
04/11 IR drain exchange, minimal outputs
04/13 POD#12 s/p RTOR lap drainage of intra-ab abscess.
04/16 UGI Recurrent small leak with contrast pooling more cranially
04/19 EGD with endoscopic stitch x2 for noted fistulous opening
04/23 UGI no leak
Clinically doing well
-- LRD
-- Continue SHERIE on DC
-- Abx: per ID, PO augmentin
-- Pain control: Tylenol, Dilaudid IV prn breakthrough, no NSAIDs
-- PPI dosing as per GI
-- Lovenox for DVT ppx
-- OK for DC home
Subjective Data
-
Date of Service: April 25, 2024
AFVSS, pain controlled, connie diet, ambulating, voiding
Objective Data
-
Intake and Output
04/24/24 04/25/24 04/26/24
06:59 06:59 06:59
Intake Total 800 / 800 2520 / 2520
Output Total 5 5
Balance 795 / 795 2520 / 2520
Intake:
Oral fluids 1740 / 1740
IV fluids (Total) 0 / 0
IV piggybacks 240 / 240 0 / 0
TPN/PPN 560 / 560 780 / 780
Output:
Drain Output (Total) 5 / 5
Right Lower Abdomen 5 / 5
Other:
Number of approximated MODERATE 3 2
amounts of urine
Number of approximated LARGE 3
amounts of urine
Vital Signs
Temp Pulse Resp BP Pulse Ox
98.4 F 61 18 125/60 98
04/25/24 07:20 04/25/24 07:20 04/25/24 07:20 04/25/24 07:20 04/25/24 07:20
Lab Results
04/24/24 04:35
04/24/24 04:35
Calcium 8.9 mg/dl (8.4-10.2) 04/24/24 04:35
Phosphorus 4.8 mg/dl (2.5-4.5) H 04/24/24 04:35
Magnesium 2.3 mg/dl (1.6-2.3) 04/24/24 04:35
Total Bilirubin 0.4 mg/dl (0.2-1.3) 04/24/24 04:35
Direct Bilirubin 0.3 mg/dl (0.0-0.4) 04/10/24 04:38
AST 29 U/L (14-36) 04/24/24 04:35
ALT 38 U/L (0-35) H 04/24/24 04:35
Alkaline Phosphatase 68 U/L (38-126) 04/24/24 04:35
Total Protein 5.4 g/dl (6.3-8.2) L 04/24/24 04:35
Albumin 2.8 g/dl (3.5-5.0) L 04/24/24 04:35
Physical Exam
-
Gen: NAD
Abd: soft, approp ttp, incisions cdi, drain turbid serous
--- NOTE | 2024-04-25 12:07 | W.DCSUMMARY ---
Discharge Summary
Discharge Data
Date of Admission: 04/02/24
Date of Discharge: 04/25/24
-
Pending Results: No
Hospital Course
Patient is 69 years old female history of hypertension, hyperlipidemia, depression anxiety came into the hospital with nausea vomiting abdominal pain and found to be in acute GI bleed and CT scan with bowel perforation. GI and surgery consulted.
Patient underwent emergent diagnostic laparoscopy with washout of intra-abdominal abscess and Chaim patch repair and ulcer biopsy on 04/02. ID was also consulted. She was kept on IV antibiotics throughout her hospital stay and later on switched to
oral. She had blood cultures growing Peptostreptococcus and later on blood cultures no growth. She also had abscess growing group F strep and Neisseria and haemophilus and fungal cultures did not grow so far. She had a prolonged hospital course.
Kept n.p.o. and IV fluids and TPN temporarily. She also received blood transfusions. She received appropriate pharmacological DVT prophylaxis. She had pain control with no NSAIDs. She received PPI. Patient also had complication after having an
upper GI series was negative for leak, NG removed and started on clear liquid diet and advanced that on 04/06 she developed fevers and repeat CAT scan showed persistent collection since she had IR exchanged the drain on 04/11 and had repeat
laparoscopy on 04/13 with lap drainage of intra-abdominal abscess. She had a follow-up upper GI series on 04/16 that shows a small leak so GI reconsulted. GI did an upper endoscopy on 04/19 and she had Endo suture done by GI. She was kept n.p.o. and
an upper GI series repeated on 04/23 with good results. She was able to tolerate diet without any problems. She remained hemodynamically stable and afebrile. Antibiotic switched to oral as well as her proton pump inhibitors. Surgery cleared her
for discharge today. She will be discharged in relatively stable condition today.
Discharge duration: 39 minutes
Discharge Plan
-
Patient Disposition: Home with Home Care
Discharge Diagnosis/Procedures: Perforated gastric ulcer status post surgical and endoscopically repair. Sepsis. Anemia. Elevated liver function test. Obesity. Depression.
Diet: Low Fiber
Activity: No strenuous activity
Additional Activity: Do not lift more than 15 pounds for the next 4-6 weeks. Resume regular daily light activities, such as walking, standing and going up/down stairs as tolerated.�
Driving Restrictions: Wait until comfortable twisting, off narcotics
Bathing Restrictions: OK to Shower
Wound Care: The glue over your incisions will flake off in the next 2-3 weeks on its own. Wash incisions gently with soap and water in the shower. Call your surgeon if you have worsening abdominal pain, nausea with vomiting, redness to your
incisions or a temperature >101.
Activity Restrictions/Additional Instructions:
You should never take aspirin, ibuprofen or naproxen. These all can cause ulcers. You can discuss with your drone software development engineer whether there is an alternative to aspirin, but given the ulcer, I believe the risk outweighs the benefit for that medication.
You also need to be on omeprazole or similar for the foreseeable future.
Referrals:
Emily Diaz DO [Family Provider] - in less than 1 week
Margie Rocha MD [Active] - in three to four weeks
Wayne Beard MD [Active] - in one week
Lluvia Mercer MD [Active] - in four to six weeks
Prescriptions:
New
pantoprazole [Protonix] 40 mg tablet,delayed release (DR/EC)
40 mg PO BID Qty: 60 0RF
amoxicillin-pot clavulanate 875-125 mg Tablet
1 tab PO Q12 3 Days Qty: 6 0RF
Continued
citalopram 20 MG tablet
20 mg PO HS
multivitamin with folic acid [Tab-A-Ethel] 1 TABLET tablet
1 tab PO DAILY
simvastatin 20 MG tablet
10 mg PO HS
lisinopril 10 MG tablet
10 mg PO QPM
calcium carbonate [Tums] 200 mg calcium (500 mg) Tablet,Chewable
200 mg PO BIDPRN PRN (Reason: GERD )
Discontinued
aspirin 81 MG tablet,delayed release (DR/EC)
81 mg PO HS
Discharge Orders:
Discharge Patient (As Directed); Ordered 04/25/24
Ordered By: Thomas Scott
Discharge Date and Time
Discharge Date/Time: 04/25/24 15:12
Print Language: DANISH
--- NOTE | 2024-04-25 12:19 | CM ---
CM reviewed chart and noted dc order
Bedside meeting with pt
Plan remains home with [facility]
IMM verbally reviewed and copy provided
No other dc needs noted
Spouse will transport
[facility]N order requested
Discharge Disposition- home with [facility], spouse transport
[2024-04-25 13:34] VITALS: BP 141/81
--- NOTE | 2024-04-26 16:46 | OR.RPT ---
Operative Report
Operative Report
Patient Name: Carole Barajas
: 1955
Date of Operation: 04/26/2024
Preoperative Diagnosis: Intra-abdominal abscess
Postoperative Diagnosis: Same
Procedure(s):
Diagnostic Laparoscopy, washout for intra-abdominal access
Surgeon(s):
Dr. Beard
Stogy Roller(s):
JASON Heaton
Anesthesia: General
Estimated Blood Loss: 11 cc
Urine Output: None
Drains/Lines/Implants: 19 Icelandic round Jose Angel drain
Specimens:
None
HPI/Surgical Indications:
This is a 69-year-old female who presented who presented to our hospital on 04/02/2024 and taken to the OR emergently for a perforated gastric ulcer which was repaired laparoscopically. Postoperatively, she had 2 imaging studies which did not
demonstrate any leak and was advanced on clear liquid diet. However she had persistent white count and fevers and was found to have residual abscess on CT imaging. The drain was in good position and did not appear to be working so this was rewired
with an IR drain however there is still minimal output in the patient was clinically not improving. We thus discussed returning to the operating room for washout of her intra-abdominal abscess. Risks/Benefits/Alternatives were discussed at length,
and the patient agreed to proceed with surgery.
Operative Findings: Bilobed abscess cavity identified on either side of the repair roughly the 15 cc of pus suctioned out. As expected some raw surface area oozing was noted. Hemostasis obtained with Gretchen Hemospray. Previous IR drain removed
and a fresh 19 Icelandic round Jose Angel drain was inserted into the abscess cavity under the left lobe of the liver and across the repair into the second collection bed. This was sutured to the skin with a 2-0 nylon suture. Her previous repair was
undisturbed. We did insufflate the stomach with and via an OG tube with no bubbling/leak noted.
Procedure Description:
The patient was brought to the Operating Room and placed in the supine position with the arms out. IV antibiotics were infused and Venodyne stockings placed. Following uneventful induction of general endotracheal anesthesia, the abdomen was
prepped and draped in the usual sterile fashion. The abdomen was entered using a left subcostal Veress technique which required 1 pass, followed by a 5 mm Optiview entry in the left upper quadrant. Pneumoperitoneum to 15 mmHg pressure was obtained
without difficulty and we confirmed that no injury had occurred during our entry. We then placed two 5 mm trocars in the right upper quadrants. There was a significant inflammation across the drain tract and over the lesser curvature of the
stomach. This area was gently opened up until we entered bilobed abscess cavities on either side of her repair. Roughly 15 cc of pus was suctioned out. As we had had previous cultures this was not sent for repeat culture. We did insufflate the
stomach via an OG tube that had been placed and the lesser curvature was flooded. There was no obvious air leak, so our previous repair was not taken down. As expected there was some raw surface oozing noted but this stopped with pressure and some
Gretchen Hemospray. The previous IR drain was removed and a fresh 19 Icelandic round Jose Angel drain was inserted and the abscess cavity under the left lobe of the liver across the repair and into the second collection bed. This was secured at the skin
with a 2-0 nylon suture. The ports were then removed and pneumoperitoneum evacuated. The port sites were closed with 4-0 Monocryl and glue. Overall, the patient tolerated the procedure well and was taken to the Recovery Room postoperatively in
stable condition.
I was the attending physician and performed the procedure with assistance from the LUMBER STACKER above. I was present for all portions of the case
Wayne Beard MD
== END 2024-04-25 15:12 | disposition home health service (06) | DRG 853 ==
LOC: 2 SOUTH 12:32
PROVIDERS: Hospitalist; Internal Medicine; Internal Medicine Gastroenterology; Nurse Practitioner Family; Radiology Vascular & Interventional Radiology; Registered Nurse; Surgery; ADMITTING PHYSICIAN Hospitalist; ATTENDING PHYSICIAN Hospitalist; CONSULT PHYSICIAN Internal Medicine Gastroenterology; CONSULT PHYSICIAN Student in an Organized Health Care Education/Training Program; CONSULT PHYSICIAN Surgery; EMERGENCY PHYSICIAN Emergency Medicine; FAMILY PHYSICIAN Family Medicine
PROC: 0DJ08ZZ Inspection of Upper Intestinal Tract, Via Natural or Artificial Opening Endoscopic (ICD-10-PCS; 2024-04-02)
PROC: 0DU647Z Supplement Stomach with Autologous Tissue Substitute, Percutaneous Endoscopic Approach (ICD-10-PCS; 2024-04-02)
PROC: 02HV33Z Insertion of Infusion Device into Superior Vena Cava, Percutaneous Approach (ICD-10-PCS; 2024-04-03)
PROC: 3E0436Z Introduction of Nutritional Substance into Central Vein, Percutaneous Approach (ICD-10-PCS; 2024-04-03)
PROC: 30233N1 Transfusion of Nonautologous Red Blood Cells into Peripheral Vein, Percutaneous Approach (ICD-10-PCS; 2024-04-04)
PROC: 0W2GX0Z Change Drainage Device in Peritoneal Cavity, External Approach (ICD-10-PCS; 2024-04-11)
PROC: 3E1M48Z Irrigation of Peritoneal Cavity using Irrigating Substance, Percutaneous Endoscopic Approach (ICD-10-PCS; 2024-04-13)
PROC: 0W3P8ZZ Control Bleeding in Gastrointestinal Tract, Via Natural or Artificial Opening Endoscopic (ICD-10-PCS; 2024-04-19)
DX: A41.9 Sepsis, unspecified organism (principal); K25.1 Acute gastric ulcer with perforation; K65.1 Peritoneal abscess; E87.1 Hypo-osmolality and hyponatremia; K31.6 Fistula of stomach and duodenum; T81.32XA Disruption of internal operation (surgical) wound, not elsewhere classified, initial encounter; I10 Essential (primary) hypertension; E78.00 Pure hypercholesterolemia, unspecified; D64.9 Anemia, unspecified; F32.A Depression, unspecified; F41.9 Anxiety disorder, unspecified; E66.09 Other obesity due to excess calories; E88.09 Other disorders of plasma-protein metabolism, not elsewhere classified; R91.1 Solitary pulmonary nodule; K44.9 Diaphragmatic hernia without obstruction or gangrene; Y83.8 Other surgical procedures as the cause of abnormal reaction of the patient, or of later complication, without mention of misadventure at the time of the procedure; Z68.30 Body mass index [BMI] 30.0-30.9, adult; Z79.82 Long term (current) use of aspirin; Z79.899 Other long term (current) drug therapy
CPT/HCPCS: 88305; 49423; 71045; 71046; 74177; 74240; 75984; 80048; 80053; 81003; 82248; 82607; 82728; 82962; 82977; 83540; 83550; 83605; 83690; 83735; 84100; 84134; 84478; 85025; 85027; 86160; 86850; 86900; 86901; 86920; 87040; 87070; 87075; 87077; 87102; 87147; 87149; 87176; 87205; 87324; 87449; 88342; 93005; 96361; 96365; 96375; 97116; 97162; 97164; 97167; 97530; 99285; C1729; C1769; J1335; J2997; P9016; Q9967

== ENCOUNTER → 2024-07-04 06:24 | Day surgery (SDC) | payer MEDICARE, OTHER, SELFPAY | LOC: GI 06:24 | PROVIDERS: ATTENDING PHYSICIAN Internal Medicine Gastroenterology | DX: Z09 Encounter for follow-up examination after completed treatment for conditions other than malignant neoplasm (principal); K44.9 Diaphragmatic hernia without obstruction or gangrene; K31.89 Other diseases of stomach and duodenum; K27.1 Acute peptic ulcer, site unspecified, with perforation; Z87.11 Personal history of peptic ulcer disease | CPT/HCPCS: 43239; 88305; 88342 ==

== ENCOUNTER 2025-01-17 06:35 | Day surgery (SDC) | payer MEDICARE, OTHER, SELFPAY | END 2025-01-17 12:23 | disposition home or self-care (01) | LOC: GI 06:35 | PROVIDERS: ATTENDING PHYSICIAN Internal Medicine | DX: Z12.11 Encounter for screening for malignant neoplasm of colon (principal); Z86.0100 Personal history of colon polyps, unspecified; K64.9 Unspecified hemorrhoids; K57.32 Diverticulitis of large intestine without perforation or abscess without bleeding; K63.5 Polyp of colon | CPT/HCPCS: 45385; 45380; 88305 ==